=== PATIENT | female | born 1945 | race Caucasian/White ===

== ENCOUNTER 2020-09-26 06:06 | Outpatient (REF) | payer MEDICARE, SELFPAY ==
[2020-09-26 07:20] LABS: Basophils Percent Auto 0.4 % (0-2); Eosinophils Absolute Auto 0.4 X10*3/uL (0.0-0.4); Eosinophils Percent Auto 3.7 % (0-4); Hematocrit 37.8 % (37-47); Hemoglobin 12.2 g/dl (12.0-16.0); Imm Gran Abs Auto 0.03 X10*3/uL (0.00-0.03); Imm Gran Pct Auto 0.3 % (0.0-0.4); Lymphocytes Absolute Auto 3.9 X10*3/uL (1.2-4.9); Lymphocytes Percent Auto 41.4 % (20-40); MANUAL DIFF FLAG NO; Mean Corpuscular HGB Conc 32.3 g/dl (31.0-35.0); Mean Corpuscular Volume 92.9 fL (80-98); Mean Platelet Volume 9.4 fL (9.4-12.3); Monocytes Absolute Auto 0.8 X10*3/uL (0.1-1.2); Monocytes Percent Auto 8.3 % (2-11); Neutrophils Absolute Auto 4.3 X10*3/uL (2.0-8.3); Neutrophils Percent Auto 45.9 % (45-73); Platelet Count 451 X10*3/uL (160-400); Red Blood Count 4.07 X10*6/uL (4.20-5.50); Red Cell Distribution Width 12.9 % (11.0-16.0); White Blood Count 9.4 X10*3/uL (4.8-10.8)
[2020-09-26 07:46] LABS: Alanine Aminotransferase 15 U/L (0-31); Albumin Level 3.9 g/dL (3.5-5.0); Alkaline Phosphatase 82 U/L (39-117); Anion Gap 14 (12-20); Aspartate Amino Transferase 18 U/L (5-31); Bilirubin Total 0.7 mg/dL (0.0-1.0); Blood Urea Nitrogen 12 mg/dL (9-16); Calcium 9.4 mg/dL (8.4-10.2); Carbon Dioxide 27 mmol/L (22-29); Chloride 106 mmol/L (96-108); Cholesterol 234 mg/dL; Estimated Glomerular Filt Rate > 60; Glucose Fasting 119 mg/dL (60-99); HDL Cholesterol 68 mg/dL; LDL Cholesterol Calculated 149 mg/dl; Potassium 4.8 mmol/l (3.3-5.1); Sodium 142 mmol/L (135-145); Triglycerides 86 mg/dL
[2020-09-26 08:09] LABS: Thyroid Stimulating Hormone 1.85 uIU/mL (0.32-4.0)
[2020-09-26 08:50] LABS: Folate 11.4 ng/mL (> or = 4.0); Vitamin B12 697 pg/mL (200-900)
== END 2020-09-26 06:07 | disposition home or self-care (01) ==
LOC: HO.LAB 06:06
PROVIDERS: PCP Internal Medicine; Visit Provider Internal Medicine
DX: E78.00 Pure hypercholesterolemia, unspecified (principal); R73.01 Impaired fasting glucose; E03.9 Hypothyroidism, unspecified; E66.3 Overweight; E53.8 Deficiency of other specified B group vitamins; G62.9 Polyneuropathy, unspecified; K21.9 Gastro-esophageal reflux disease without esophagitis; D64.9 Anemia, unspecified
CPT/HCPCS: 36415; 80053; 80061; 82607; 82746; 84439; 84443; 85025

== ENCOUNTER 2021-04-12 06:06 | Outpatient (REF) | payer MEDICARE, SELFPAY ==
[2021-04-12 06:43] LABS: MANUAL DIFF FLAG NO
[2021-04-12 06:50] LABS: Basophils Absolute Auto 0.1 X10*3/uL (0.0-0.2); Basophils Percent Auto 0.8 % (0-2); Eosinophils Absolute Auto 0.3 X10*3/uL (0.0-0.4); Eosinophils Percent Auto 3.9 % (0-4); Hematocrit 41.3 % (37-47); Hemoglobin 13.7 g/dl (12.0-16.0); Imm Gran Abs Auto 0.02 X10*3/uL (0.00-0.03); Imm Gran Pct Auto 0.3 % (0.0-0.4); Lymphocytes Absolute Auto 2.9 X10*3/uL (1.2-4.9); Lymphocytes Percent Auto 43.1 % (20-40); Mean Corpuscular HGB Conc 33.2 g/dl (31.0-35.0); Mean Corpuscular Hemoglobin 29.6 pg (27.0-33.0); Mean Corpuscular Volume 89.2 fL (80-98); Mean Platelet Volume 9.3 fL (9.4-12.3); Monocytes Absolute Auto 0.5 X10*3/uL (0.1-1.2); Neutrophils Absolute Auto 2.9 X10*3/uL (2.0-8.3); Neutrophils Percent Auto 43.9 % (45-73); Platelet Count 357 X10*3/uL (160-400); Red Blood Count 4.63 X10*6/uL (4.20-5.50); White Blood Count 6.6 X10*3/uL (4.8-10.8)
[2021-04-12 06:51] LABS: Glucose Urine UA NEG (NEG); Leukocyte Esterase Urine NEG (NEG); Nitrite Urine NEG (NEG); PH 5.5 (5.0-8.0); Urine Blood NEG (NEG); Urine Ketones NEG (NEG); Urine Protein NEG (NEG-TRACE)
[2021-04-12 07:20] LABS: Appearance Urine CLEAR; Color Urine YELLOW
[2021-04-12 07:28] LABS: Alanine Aminotransferase 12 U/L (0-31); Alkaline Phosphatase 65 U/L (39-117); Anion Gap 13 (12-20); Aspartate Amino Transferase 17 U/L (5-31); Bilirubin Total 0.8 mg/dL (0.0-1.0); Blood Urea Nitrogen 12 mg/dL (9-16); Calcium 9.3 mg/dL (8.4-10.2); Carbon Dioxide 24 mmol/L (22-29); Chloride 110 mmol/L (96-108); Cholesterol 238 mg/dL; Estimated Glomerular Filt Rate > 60; Glucose Fasting 104 mg/dL (60-99); HDL Cholesterol 61 mg/dL; LDL Cholesterol Calculated 153 mg/dl; Potassium 4.2 mmol/L (3.3-5.1); Sodium 143 mmol/L (135-145); Total Protein 6.9 g/dL (6.5-8.0); Triglycerides 123 mg/dL
[2021-04-12 07:51] LABS: Free T4 (Free Thyroxine) 1.04 ng/dL (0.71-1.85)
[2021-04-12 08:01] LABS: Folate 8.6 ng/mL (> or = 4.0); Vitamin B12 560 pg/mL (200-900)
== END 2021-04-12 06:07 | disposition home or self-care (01) ==
LOC: HO.LAB 06:06
PROVIDERS: Visit Provider Internal Medicine
DX: E03.9 Hypothyroidism, unspecified (principal); E78.00 Pure hypercholesterolemia, unspecified; E53.8 Deficiency of other specified B group vitamins; J44.9 Chronic obstructive pulmonary disease, unspecified; R73.01 Impaired fasting glucose; D64.9 Anemia, unspecified; K21.9 Gastro-esophageal reflux disease without esophagitis; R01.1 Cardiac murmur, unspecified
CPT/HCPCS: 36415; 80053; 80061; 81003; 82607; 82746; 84439; 84443; 85025

== ENCOUNTER 2021-08-28 09:35 | Outpatient (REF) | payer MEDICARE, SELFPAY ==
[2021-08-28 09:57] LABS: MANUAL DIFF FLAG NO
[2021-08-28 10:29] LABS: Basophils Percent Auto 0.5 % (0-2); Eosinophils Absolute Auto 0.4 X10*3/uL (0.0-0.4); Eosinophils Percent Auto 4.9 % (0-4); Hematocrit 38.8 % (37.0-47.0); Hemoglobin 12.7 g/dl (12.0-16.0); Imm Gran Abs Auto 0.02 X10*3/uL (0.00-0.03); Imm Gran Pct Auto 0.2 % (0.0-0.4); Lymphocytes Absolute Auto 2.2 X10*3/uL (1.2-4.9); Lymphocytes Percent Auto 26.1 % (20-40); Mean Corpuscular HGB Conc 32.7 g/dl (31.0-35.0); Mean Corpuscular Hemoglobin 30.7 pg (27.0-33.0); Mean Corpuscular Volume 93.7 fL (80.0-98.0); Mean Platelet Volume 9.4 fL (9.4-12.3); Monocytes Absolute Auto 0.6 X10*3/uL (0.1-1.2); Monocytes Percent Auto 7.7 % (2-11); Neutrophils Absolute Auto 5.1 x10*3/uL (2.0-8.3); Neutrophils Percent Auto 60.6 % (45-73); Platelet Count 380 X10*3/uL (160-400); Red Blood Count 4.14 X10*6/uL (4.20-5.50); Red Cell Distribution Width 14.6 % (11.0-16.0); White Blood Count 8.4 X10*3/uL (4.8-10.8)
[2021-08-28 10:51] LABS: Estimated Average Glucose 117 mg/dL; Hemoglobin A1C 151.3089 umol/L; Hemoglobin A1c % 5.7 %
[2021-08-28 11:11] LABS: Appearance Urine CLEAR; Color Urine YELLOW; Glucose Urine UA NEG (NEG); Leukocyte Esterase Urine NEG (NEG); Nitrite Urine NEG (NEG); PH 5.5 (5.0-8.0); Specific Gravity - Urine 1.015 (1.005-1.025); UACC Culture Trigger NO; Urine Blood TRACE (NEG); Urine Ketones NEG (NEG); Urine Protein NEG (NEG-TRACE)
[2021-08-28 11:18] LABS: Alanine Aminotransferase 26 U/L (0-31); Alkaline Phosphatase 87 U/L (39-117); Anion Gap 14 (12-20); Aspartate Amino Transferase 28 U/L (5-31); Bilirubin Total 0.9 mg/dL (0.0-1.0); Blood Urea Nitrogen 13 mg/dL (9-16); Calcium 9.7 mg/dL (8.4-10.2); Carbon Dioxide 24 mmol/L (22-29); Chloride 109 mmol/L (96-108); Cholesterol 150 mg/dL; Estimated Glomerular Filt Rate > 60; Glucose Fasting 98 mg/dL (60-99); HDL Cholesterol 58 mg/dL; Iron 91 mcg/dL (30-160); LDL Cholesterol Calculated 79 mg/dl; Percent Iron Saturation 21 % (15-50); Potassium 4.3 mmol/L (3.3-5.1); Sodium 143 mmol/L (135-145); Total Iron Binding Capacity 438 mcg/dL (228-428); Triglycerides 68 mg/dL; Unsaturated Iron Binding 347 ug/dL
[2021-08-28 11:25] LABS: RBC Urine 0-2 /HPF (0); Squamous Epithelial Cell Urine TRACE /LPF
[2021-08-28 11:35] LABS: Thyroid Stimulating Hormone 0.44 uIU/mL (0.32-4.0); Vitamin D 25-OH Total 26.5 ng/mL (>30)
[2021-08-28 11:42] LABS: Folate 10.5 ng/mL (> or = 4.0); Vitamin B12 913 pg/mL (200-900)
== END 2021-08-28 09:36 | disposition home or self-care (01) ==
LOC: HO.LAB 09:35
PROVIDERS: PCP Internal Medicine; Visit Provider Internal Medicine
DX: I25.10 Atherosclerotic heart disease of native coronary artery without angina pectoris (principal); I35.0 Nonrheumatic aortic (valve) stenosis; E03.9 Hypothyroidism, unspecified; R73.01 Impaired fasting glucose; E78.00 Pure hypercholesterolemia, unspecified; I10 Essential (primary) hypertension; D50.9 Iron deficiency anemia, unspecified; E53.8 Deficiency of other specified B group vitamins; E55.9 Vitamin D deficiency, unspecified
CPT/HCPCS: 36415; 80053; 80061; 81001; 81003; 82306; 82607; 82746; 83036; 83540; 84439; 84443; 85025; 99202

== ENCOUNTER 2021-10-07 15:41 | Outpatient (REF) | payer MEDICARE, SELFPAY ==
--- NOTE | ~2021-10-07 | XR_ITS ---
EXAMINATION: XR SHOULDER, RIGHT CLINICAL INFORMATION: Pain COMPARISON: None TECHNIQUE: AP external rotation, Grashey, scapular Y, and axillary views of the right shoulder. FINDINGS: Bone alignment is normal. No fracture or dislocation is seen. The glenohumeral joint is normal. There is mild arthritis at the acromioclavicular joint. Soft tissues are unremarkable. XR/XR shoulder RT 1V IMPRESSION: Mild arthritis at the acromioclavicular joint.
== END 2021-10-07 15:42 | disposition home or self-care (01) ==
LOC: HO.XRAY 15:41
PROVIDERS: PCP Internal Medicine; Visit Provider Nurse Practitioner Acute Care
DX: M25.511 Pain in right shoulder (principal)
CPT/HCPCS: 73020

== ENCOUNTER → 2021-10-17 12:17 | Outpatient (BNVA) | payer MEDICARE, OTHER, SELFPAY | PROVIDERS: PCP Internal Medicine; Visit Provider Orthopaedic Surgery | DX: M75.41 Impingement syndrome of right shoulder (principal) | CPT/HCPCS: 20610; 99202; J1100 ==

== ENCOUNTER → 2021-11-04 09:08 | Outpatient (REF) | payer OTHER, SELFPAY ==
--- NOTE | 2021-11-04 09:15 | CA_ITS ---
Transthoracic Echocardiogram Patient (Last, First, Middle): Joana Purdy M Gender: Female Date of : 1945 Age: 76 Procedure Date: 11/04/2021 Procedure Type: Transthoracic Echocardiogram Location: OP Height: 157.48 cm Weight: 65.77 kg BSA: 1.67 m2 Heart Rate: bpm BP: 158 / 82 mmHg Tube Blower: DSRemy Referring MD: Nik Herrera MD Symptoms: I42.9 - Cardiomyopathy, unspecified Study Quality: Good ECG Rhythm: Sinus Conclusions: - The left ventricular systolic function is normal. The calculated ejection fraction is 57% by biplane method. Findings Left Ventricle Normal left ventricular cavity size. There is normal left ventricular wall thickness. The left ventricular systolic function is normal. The calculated ejection fraction is 57% by biplane method. There is no evidence of regional wall motion abnormalities. Right Ventricle Normal right ventricular cavity size and systolic function. Prior Study Comparison No prior study available for comparison. Measurements 2D Linear Measurements LVIDd: 4.14 3.9-5.3/4.2-5.9 cm LVIDd Index: 2.48 2.4-3.2/2.2-3.1 cm/m2 LVIDs: 3.06 2.0-3.6 cm 2D Systolic Function EF 4C: 59.20 >55% EF 2C: 56.40 >55% EF BiP: 56.90 >55% Mitral Valve MV Pk E: 0.84 MV PK A: 0.81 MV Decel Time: 154.00 E/A: 1.00 E'Lateral: 8.70 E'Medial: 4.68 E/E' Med: 17.90 E/E' Lat: 9.60 PHT: 45.00 MVA PHT: 4.89 Decel [place]: 5.42 Diastolic Function MV Pk E: 0.84 MV Pk A: 0.81 E/A: 1.00 E'Medial: 4.68 E/E' Med: 17.90 E' Laterial: 8.70 E/E' Lat: 9.60 Right Ventricle TAPSE (mm): 2.03 TVS' Trell: 14.40 Updated in Other Vendor System with Status of Final Lawrence Milan MD electronically signed on 11/05/2021 9:21:14 AM with status of Final
[2021-11-04 10:21] LABS: Cholesterol 167 mg/dL; HDL Cholesterol 60 mg/dL; LDL Cholesterol Calculated 87 mg/dl; Triglycerides 104 mg/dL
[2021-11-04 10:24] LABS: Color Urine OTHER; Glucose Urine UA NEG (NEG); Leukocyte Esterase Urine TRACE (NEG); Nitrite Urine NEG (NEG); Specific Gravity - Urine <= 1.005 (1.005-1.025); UACC Culture Trigger YES; Urine Blood NEG (NEG); Urine Ketones NEG (NEG); Urine Protein NEG (NEG-TRACE)
[2021-11-04 10:25] LABS: Appearance Urine COLORLESS
[2021-11-04 11:14] LABS: Squamous Epithelial Cell Urine TRACE /LPF
[2021-11-04 11:15] LABS: RBC Urine 0-2 /HPF (0); Renal Epithelial Cells Urine TRACE /LPF; WBC Urine 0-2 /HPF (0-4)
[2021-11-04 11:16] LABS: Bacteria Urine TRACE /LPF
== END ==
LOC: HO.CARD 09:08
PROVIDERS: PCP Internal Medicine; Visit Provider Internal Medicine Cardiovascular Disease
DX: I22.1 Subsequent ST elevation (STEMI) myocardial infarction of inferior wall (principal); I42.9 Cardiomyopathy, unspecified; I25.10 Atherosclerotic heart disease of native coronary artery without angina pectoris; R35.0 Frequency of micturition
CPT/HCPCS: 36415; 80061; 81001; 87086; 93308

== ENCOUNTER → 2021-11-11 14:53 | Outpatient (BNVA) | payer OTHER, SELFPAY | PROVIDERS: PCP Internal Medicine; Referring Provider Internal Medicine; Visit Provider Internal Medicine Cardiovascular Disease | DX: I25.10 Atherosclerotic heart disease of native coronary artery without angina pectoris (principal); I35.0 Nonrheumatic aortic (valve) stenosis | CPT/HCPCS: 99212 ==

== ENCOUNTER 2022-01-06 06:40 | Outpatient (REF) | payer OTHER, SELFPAY ==
[2021-12-06 13:17] VITALS: BP 145/78; BP 158/78
[2021-12-31 09:46] VITALS: BP 112/62; BMI 27.4
[2022-01-06 06:53] LABS: MANUAL DIFF FLAG NO
[2022-01-06 07:31] LABS: Basophils Absolute Auto 0.1 X10*3/uL (0.0-0.2); Basophils Percent Auto 0.8 % (0-2); Eosinophils Absolute Auto 0.3 X10*3/uL (0.0-0.4); Eosinophils Percent Auto 3.5 % (0-4); Hematocrit 39.7 % (37.0-47.0); Hemoglobin 13.1 g/dl (12.0-16.0); Imm Gran Abs Auto 0.01 X10*3/uL (0.00-0.03); Imm Gran Pct Auto 0.1 % (0.0-0.4); Lymphocytes Absolute Auto 2.5 X10*3/uL (1.2-4.9); Lymphocytes Percent Auto 34.1 % (20-40); Mean Corpuscular Hemoglobin 32.1 pg (27.0-33.0); Mean Corpuscular Volume 97.3 fL (80.0-98.0); Mean Platelet Volume 9.2 fL (9.4-12.3); Monocytes Absolute Auto 0.7 X10*3/uL (0.1-1.2); Monocytes Percent Auto 9.6 % (2-11); Neutrophils Absolute Auto 3.8 x10*3/uL (2.0-8.3); Neutrophils Percent Auto 51.9 % (45-73); Platelet Count 338 X10*3/uL (160-400); Red Blood Count 4.08 X10*6/uL (4.20-5.50); Red Cell Distribution Width 13.4 % (11.0-16.0); White Blood Count 7.4 X10*3/uL (4.8-10.8)
[2022-01-06 07:57] LABS: Alanine Aminotransferase 28 U/L (0-31); Albumin Level 4.1 g/dL (3.5-5.0); Alkaline Phosphatase 70 U/L (39-117); Anion Gap 14 (12-20); Aspartate Amino Transferase 26 U/L (5-31); Bilirubin Total 1.5 mg/dL (0.0-1.0); Blood Urea Nitrogen 12 mg/dL (9-16); Calcium 9.9 mg/dL (8.4-10.2); Carbon Dioxide 26 mmol/L (22-29); Chloride 108 mmol/L (96-108); Cholesterol 132 mg/dL; Estimated Glomerular Filt Rate > 60; Glucose Fasting 118 mg/dL (60-99); HDL Cholesterol 55 mg/dL; LDL Cholesterol Calculated 61 mg/dl; Potassium 4.5 mmol/L (3.3-5.1); Sodium 143 mmol/L (135-145); Total Protein 6.8 g/dL (6.5-8.0); Triglycerides 83 mg/dL
[2022-01-06 08:15] LABS: Appearance Urine CLEAR; Color Urine YELLOW; Glucose Urine UA NEG (NEG); Leukocyte Esterase Urine TRACE (NEG); Nitrite Urine NEG (NEG); PH 5.5 (5.0-8.0); UACC Culture Trigger YES; Urine Blood TRACE (NEG); Urine Ketones NEG (NEG); Urine Protein NEG (NEG-TRACE)
[2022-01-06 08:20] LABS: Free T4 (Free Thyroxine) 1.48 ng/dL (0.71-1.85); Thyroid Stimulating Hormone 0.06 uIU/mL (0.32-4.0); Vitamin D 25-OH Total 29.6 ng/mL (>30)
[2022-01-06 08:36] LABS: Bacteria Urine 1+ /LPF; Squamous Epithelial Cell Urine TRACE /LPF
== END 2022-01-06 06:41 | disposition home or self-care (01) ==
LOC: HO.LAB 06:40
PROVIDERS: Absent Provider Internal Medicine Cardiovascular Disease; PCP Internal Medicine; Visit Provider Internal Medicine
DX: Z00.00 Encounter for general adult medical examination without abnormal findings (principal); E78.00 Pure hypercholesterolemia, unspecified; E03.9 Hypothyroidism, unspecified; E55.9 Vitamin D deficiency, unspecified
CPT/HCPCS: 36415; 80053; 80061; 81001; 81003; 82306; 84439; 84443; 85025; 87086

== ENCOUNTER 2022-01-09 08:00 | Outpatient (RCR) | payer OTHER, SELFPAY ==
[2021-12-06 13:17] VITALS: BP 145/78; BP 146/78; BP 158/78
--- NOTE | 2022-02-10 10:11 | MHC.PT.DC ---
[facility] [place] Office [place] Office [place] Office [address] Cole Keating [address] [facility] [phone] F: [phone] F: [phone] F: [phone] F: [phone] Physical Therapy Discharge Report Diagnosis: RIGHT SHOULDER IMPINGEMENT (KP) Date of Surgery: Date of Evaluation: 12/31/21 Date of Discharge: 01/17/22 Treatments to Date: 4 Cancellations to Date: No Shows to Date: Discharge Status: Patient Elected to Stop Recommend MD Follow-up Discharge Summary: JUDE REPORTS THAT HER SYMPTOMS HAVE CONTINUED TO WORSEN DESPITE PT TREATMENT. TREATMENT INCLUDED SOFT TISSUE WORK, LIGHT-RESISTENCE THEREX AND A TREIAL OF IONTOPHORESIS. SHE WISHES TO PURSUE MRI AND MD FOLLOW UP. Electronically signed by: JAM METCALF PT, DPT Please sign and return to therapist. Thank you for your referral.
== END 2022-02-10 10:11 | disposition home or self-care (01) ==
LOC: HO.PT 08:00
PROVIDERS: PCP Internal Medicine; Visit Provider Orthopaedic Surgery
DX: M75.41 Impingement syndrome of right shoulder (principal)
CPT/HCPCS: 97033; 97110; 97140; 97161

== ENCOUNTER → 2022-01-30 08:17 | Outpatient (BNVA) | payer OTHER, SELFPAY ==
[2021-12-06 13:17] VITALS: BP 145/78; BP 158/78
[2022-01-28 07:31] VITALS: BP 104/60; BMI 25.1
== END ==
PROVIDERS: PCP Internal Medicine; Visit Provider Orthopaedic Surgery
DX: M75.41 Impingement syndrome of right shoulder (principal)
CPT/HCPCS: 20610; 99212; J1100

== ENCOUNTER 2022-02-18 08:43 | Outpatient (AMB) | payer OTHER, SELFPAY ==
[2021-12-06 13:17] VITALS: BP 145/78; BP 158/78
[2022-01-28 07:31] VITALS: BP 104/60; BMI 25.1
--- NOTE | 2022-02-18 08:57 | A.OFFVIS_ITS ---
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 Required: No Accompanied by: Self / Same As Patient Allergies Penicillins [PENICILLINS] Allergy (Intermediate, Verified 02/26/23 10:24) HIVES codeine [CODEINE] Adverse Reaction (Intermediate, Verified 02/26/23 10:24) CONFUSION Medication List - Last Reconciled 02/18/22 by Jermain Lozano MD aspirin 81 mg PO DAILY atorvastatin 80 mg PO DAILY 90 days ezetimibe (Zetia) 10 mg PO DAILY levothyroxine 75 mcg PO QAM 90 days lidocaine 5% 1 appl topical BID PRN lidocaine 5% 1 patch topical DAILY lisinopril 5 mg PO DAILY 90 days lorazepam 0.5 mg PO BID 30 days PRN metoprolol succinate ER 25 mg PO DAILY 90 days omeprazole 40 mg PO DAILY 90 days ticagrelor (Brilinta) 90 mg PO BID 90 days HPI AWV G0438 HPI Details Patient comes in today for her Annual Medicare Wellness Exam States that she feels okay and currently has no acute issues She denies any headaches or dizziness Denies any chest pains, no shortness of breath No nausea/vomiting, no abdominal pain No change in bowel habits noted Needs her Lisinopril Rx refilled today IPPE/AWV: c/o of Annual Wellness Visit, subsequent visit. Medical / Social History Reviewed Past Medical History Yes . [place] of Care / Care Team list updated Yes . Surgical/Hospitalization History Yes . Current Medications (including OTC and supplements) Yes . Family History Yes . Tobacco Control form Yes . AUDIT-C (Alcohol use) form Yes . Illicit drug use in Social History Yes . Current diagnosis of depression? No Appropriate PHQ2/PHQ9 completed Yes . Data entered by [employer]eller and reviewed by provider Home Safety Throw rugs? No Grab bars? No Raised toilet seats? No Working smoke detectors? Yes Working carbon monoxide detectors? Yes Data entered by [employer] and reviewed by provider Activities of Daily Living (ADLs) Difficulty bathing or showering? No Difficulty dressing? No Difficulty using the toilet? No Difficulty getting in and out of bed? No Difficulty walking? No Receives help from another person with any of the above tasks? No Instrumental Activities of Daily Living (IADLs) Uses the telephone without help Gets to places out of walking distance without help Goes shopping for groceries without help Prepares own meals without help Does own minor home maintenance without help Does own laundry without help Does own housework without help Manages own money without help Currently takes medications? Yes Takes medication without help End-of-Life Planning Discussed advance directive Yes Advance directive on file Discussed wishes expressed in advance directive agreed to following patient's wishes Fall Risk: Fall History Have you had any falls with injury in the past year? No . Have you had two or more falls in the past year? No . Fall Risk Assessment: No falls in the past year . HRA filled out by the patient, reviewed by Provider and scanned. [facility] Medical History Aortic stenosis 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 Benign essential hypertension Overweight (BMI 25.0-29.9) Anxiety Insomnia Peripheral neuropathy Vitamin B12 deficiency Impaired fasting glucose Cardiac murmur Anemia GERD without esophagitis Allergic rhinitis COPD (chronic obstructive pulmonary disease) Acquired hypothyroidism Pure hypercholesterolemia Surgical History S/P coronary artery stent placement (~07/2021) Family History Father Medical history unknown Mother Medical history unknown Social History Housing: House Alcohol intake: never Patient Tobacco Use Status: Current everyday Tobacco user Tobacco use type: Cigarette Cigarette Packs Per Day: 0.10 Cigarettes Per Day: 2 Years Smoked: 50+ e-Cigarette/Vaping Use: Never Used Second Hand Smoke Exposure: Yes service: No Current occupational status: retired Cognitive needs: No Hearing needs: No Vision needs: Yes (Glasses) Questionnaire Medicare Wellness Checkup What [age] What gender do you identify with?: female During the past 4 weeks, how much have you been bothered by emotional problems such as feeling anxious, depressed, irritable, sad or downhearted, and blue?: quite a bit During the past 4 weeks, has your physical & emotional health limited your social activities with family, friends, neighbors, or groups?: slightly During the past 4 weeks, how much bodily pain have you generally had?: severe pain During the past 4 weeks, was someone available to help you if you needed & wanted help?: yes, as much as I wanted During the past 4 weeks, what was the hardest physical activity you could do for at least 2 minutes?: heavy Can you get to places out of walking distance without help? (For eg., can you travel alone on buses, taxis or drive your car?): Yes Can you go shopping for groceries or clothes without someone's help?: Yes Can you prepare your own meals?: Yes Can you do your housework without help?: Yes Because of any health problems, do you need the help of another person with your personal care needs such as eating, bathing, dressing or getting around the house?: No Can you handle your own money without help?: Yes During the past 4 weeks, how would you rate your health in general?: good During the past 4 weeks how have things been going for you?: pretty well Are you having difficulties driving your car?: no Do you always fasten your seat belt when you are in a car?: yes, usually During past 4 weeks, have you been bothered by the following: never: Falling or dizzy when standing up, Sexual problems?, Trouble eating well?, Teeth or denture problems? and Problems using the telephone? and seldom: Tiredness or fatigue? Have you fallen 2 or more times in the past year?: No Are you afraid of falling?: No Are you a smoker?: yes, but I'm not ready to quit During the past 4 weeks, how many drinks of wine, beer, or other alcoholic beverages did you have?: no alcohol at all Do you exercise for about 20 minutes 3 or more times a week?: no, I usually do not exercise this much Have you been given information to help with the following?: no: Hazards in your house that might hurt you? and no: Keeping track of your medications? How often do you have trouble taking medicines the way you have been told to take them?: I always take medicine as prescribed How confident are you that you can control & manage most of your health problems?: very confident What is your race?: White Mini Mental State Exam (MMSE) Orientation What is the (year) (season) (date) (day) (month)?: year, season, date, day and month Where are we (state) (county) (town or city) (hospital) (floor)?: state, county, town or city, hospital/clinic and floor Score Score: 10 Activity of Daily Living Bathing - sponge bath, tub bath or shower: receives no assistance (gets in/out by self, if usual bathing means Dressing - getting clothes from closets & drawers, including inner/outer garments & fasteners.: gets clothes & gets completely dressed without help Toileting - going to the 'toilet room' for urine/bowel elimination & cleaning self/arranging clothes: goes to toilet room, cleans self, arranges clothes without help Transfer: moves in & out of bed and chair without help (may use support object) Continence: controls urination/bowel movements completely by self Feeding: feeds self without help Total Score: 0 Information obtained from: patient Using telephone: independent Traveling: independent Shopping: independent Preparing meals: independent Housework: independent Taking medicine: independent Managing money: independent PHQ-9 Over the last 2 weeks, how often have you been bothered by any of the following problems? 1. Little interest or pleasure in doing things: not at all 2. Feeling down, depressed, or hopeless: not at all 3. Trouble falling or staying asleep, or sleeping too much: not at all 4. Feeling tired or having little energy: not at all 5. Poor appetite or overeating: not at all 6. Feeling bad about yourself - or that you are a failure or have let yourself or your family down: not at all 7. Trouble concentrating on things, such as reading the newspaper or watching television: not at all 8. Moving or speaking so slowly that other people could have noticed. Or the opposite - being so fidgety or restless that you have been moving around a lot more than usual: not at all 9. Thoughts that you would be better off or of hurting yourself in some way: not at all Total score: 0 Depression Screening Interpretation: Negative 22230 - PHQ-9 Billing: Yes Source: Developed by Drs. Durga Mc, Charlie Sarkar and colleagues, with an educational gail from [employer]. Thrive Questionnaire Date Thrive assessed: 02/18/22 I am a: Patient What is your living situation today?: I have a steady place to live Within the past 12 months, did the food you bought not last and you didn't have the money to get more?: Never true Within the past 12 months, did you worry whether your food would run out before you got money to buy more?: Never true Do you have trouble paying for medicines?: No Do you have trouble getting transportation to medical appointments?: No Do you have trouble paying your heating and electricity bill?: No Do you have trouble taking care of your child, family member or friend?: No Do you have trouble with day-to-day activities such as bathing, preparing meals, shopping, managing finances, etc.?: No Are you currently unemployed and looking for a job?: No Are you interested in more education?: No Currently or been in a relationship where the following occur: no concerns reported AUDIT C Alcohol Use Questionnaire (AUDIT-C) 1. How often do you have a drink containing alcohol?: Never 3. How often do you have six or more drinks on one occasion?: Never Total Score: 0 Score Reviewed/Action Taken: Yes KEIRY-7 AMB Questionnaire KEIRY-7 Date KEIRY - 7 assessed: 02/18/22 Feeling nervous, anxious, or on edge: 1 = Several days Not being able to stop or control worryin = Several days Worrying too much about different things: 1 = Several days Trouble relaxin = Several days Being so restless that it is hard to sit still: 1 = Several days Becoming easily annoyed or irritable: 1 = Several days Feeling afraid as if something awful might happen: 1 = Several days Total KEIRY-7 score (0-4 normal; 5-9 mild; 10-14 moderate; 15-21 severe): 7 Source: Developed by Drs. Durga cM, Charlie Sarkar and colleagues, with an educational gail from [employer]. Review of Systems Const Denies chills, Denies fatigue, Denies fever(s) and Denies headache(s) ENT Denies dysphagia, Denies dizziness, Denies otalgia, Denies headache(s), Denies neck pain, Denies odynophagia and Denies sore throat Card Denies chest pain, Denies palpitations and Denies dyspnea Resp Denies cough and Denies dyspnea GI Denies abdominal pain, Denies constipation, Denies dysphagia, Denies heartburn, Denies diarrhea, Denies nausea, Denies odynophagia and Denies vomiting Denies difficulty voiding, Denies nocturia and Denies dysuria Musc Denies neck pain Skin/Breast Denies rash Neuro Denies dizziness and Denies headache(s) Endo Denies fatigue and Denies palpitations Physical Exam Vital Signs: Last Vital Signs Temp 96.7 F L 02/18/22 09:03 Pulse 70 02/18/22 09:03 BP 136/80 02/18/22 09:03 Pulse Ox 98 02/18/22 09:03 Oxygen Delivery Method Room Air 02/18/22 09:03 BMI result Body Mass Index 26.0 IPPE/AWV: Balance Romberg Yes . Tandem walk Yes . Walk and Turn Yes . Rise from sit to stand Yes . Vision Corrective lens No Vision screen pass Hearing Whisper test pass . Urinary incont. no. EKG Not clinically necessary. Const General: no acute distress and alert Orientation/consciousness: patient oriented x3 HEENT Ears: TM's normal bilaterally and EAC's normal Throat: Yes posterior oropharynx normal and Yes tonsils normal (no TP congestion) Neck Neck: Yes no lymphadenopathy and Yes supple Resp Auscultation: clear to auscultation bilaterally, no rales and no wheezes Cardio Rate: regular rate Rhythm: regular rhythm Heart sounds: no murmurs GI Palpation (GI): Soft to palpation and nontender Auscultation: normal bowel sounds Skin General skin exam: no rashes or lesions noted Neuro General: patient oriented x3 Cognition (Neuro): normal cognition Extrem General: Yes no clubbing, cyanosis or edema Psych Mental Status: mental status grossly normal Thought process: Normal thought process present Thought content: Normal thought content present Assessment & Plan Assessment & Plan (1) Medicare annual wellness visit, subsequent: Code(s): Z00.00 - Encounter for general adult medical examination without abnormal findings Plan: HRA form completed, reviewed and discussed with patient; form will be scanned into patient's chart (2) CAD (coronary artery disease): Comment: S/P Inferior STEMI in 07/2021 - had PCI x 2 Code(s): I25.10 - Atherosclerotic heart disease of samish coronary artery without angina pectoris Qualifiers: Coronary Disease-Associated Artery/Lesion type: samish artery [place] vs. transplanted heart: samish heart Associated angina: without angina Qualified Code(s): I25.10 - Atherosclerotic heart disease of samish coronary artery without angina pectoris Plan: Cardiac catheterization done on 07/31/2021 revealed (+) single vessel CAD with 99% stenosis of mid RCA. Successful PCI of the mid RCA with one drug-eluting stent. A proximal RCA dissection was covered with a separate proximal RCA drug- eluting stent. Continue Aspirin 81 mg QD, Metoprolol ER 25 mg QD and Brilinta 90 mg QD Follow up with cardiology as scheduled (3) Pure hypercholesterolemia: Code(s): E78.00 - Pure hypercholesterolemia, unspecified Plan: Reinforced low cholesterol diet Continue Atorvastatin 80 mg QD Will recheck labs in 6 months for follow up (4) Benign essential hypertension: Code(s): I10 - Essential (primary) hypertension Plan: Reinforced low sodium diet - goal is systolic BP of at least 120 mm or less Continue Lisinopril 5 mg QD - Rx refilled (5) Acquired hypothyroidism: Code(s): E03.9 - Hypothyroidism, unspecified Plan: Continue Levothyroxine 75 mcg QD Will recheck her TFTs in 6 months (6) COPD (chronic obstructive pulmonary disease): Code(s): J44.9 - Chronic obstructive pulmonary disease, unspecified Qualifiers: COPD type: unspecified COPD Qualified Code(s): J44.9 - Chronic obstructive pulmonary disease, unspecified Plan: Stable - states that she has not felt the need to use her inhalers at all recently (7) Allergic rhinitis: Code(s): J30.9 - Allergic rhinitis, unspecified Qualifiers: Allergic rhinitis trigger: unspecified Allergic rhinitis seasonality: unspecified Qualified Code(s): J30.9 - Allergic rhinitis, unspecified Plan: Continue OTC antihistamines - can take Loratadine, Fexofenadine or Cetirizine as needed (8) GERD without esophagitis: Comment: EGD done in July [address] Fuentes - GE junction appeared irregular and biopsy done revealed chronic inflammatory changes consistent with GERD Code(s): K21.9 - Gastro-esophageal reflux disease without esophagitis Plan: Dietary restrictions reinforced Continue Omeprazole 40 mg QD (9) Anemia: Code(s): D64.9 - Anemia, unspecified Qualifiers: Anemia type: unspecified type Qualified Code(s): D64.9 - Anemia, unspecified Plan: Corrected - will continue to monitor her CBC regularly (10) Impaired fasting glucose: Code(s): R73.01 - Impaired fasting glucose Plan: Reinforced low calorie/low carb diet and exercise as tolerated (11) Vitamin B12 deficiency: Code(s): E53.8 - Deficiency of other specified B group vitamins Plan: Corrected - will continue to monitor her B12 level Continue Vitamin B12 1000 mcg daily (12) Peripheral neuropathy: Code(s): G62.9 - Polyneuropathy, unspecified Qualifiers: Peripheral neuropathy type: polyneuropathy, unspecified Qualified Code(s): G62.9 - Polyneuropathy, unspecified Plan: Symptoms improved/stable (13) Insomnia: Code(s): G47.00 - Insomnia, unspecified Qualifiers: Insomnia type: unspecified Qualified Code(s): G47.00 - Insomnia, unspe cified Plan: Sleep hygiene reinforced Was tried on Trazodone in the past but states that the Rx did not help; notes that Lorazepam helps when needed (14) Anxiety: Code(s): F41.9 - Anxiety disorder, unspecified Plan: Continue Lorazepam 0.5 mg 1 tablet 1 to 2 times a day as needed - patient states that she mostly takes it at night and as needed (15) Overweight (BMI 25.0-29.9): Code(s): E66.3 - Overweight Plan: Reinforced diet/exercise as tolerated/lose weight Plan Follow up in 6 months Orders: Orders Lipid Panel 6 Months E78.00 - Pure hypercholesterolemia, unspecified Thyroid Stimulating Hormone 6 Months E03.9 - Hypothyroidism, unspecified Free T4 (Free Thyroxine) 6 Months E03.9 - Hypothyroidism, unspecified Comprehensive [place]. Panel Fast 6 Months E78.00 - Pure hypercholesterolemia, unspecified Medications: Refilled lisinopril 5 mg PO DAILY 90 tabs 1RF 90 days Quality Reporting (2019) Depression/Bipolar (159/160/161/177) PHQ-9: Total score: 0 Coding Level of Care Code Medicare Subsequent (G0439) Est Pt Level 4 (69716) Diagnoses Medicare annual wellness visit, subsequent Z00.00 Coronary artery disease involving samish coronary artery of samish heart without angina pectoris I25.10 Coronary Disease-Associated Artery/Lesion type: samish artery [place] vs. transplanted heart: samish heart Associated angina: without angina Pure hypercholesterolemia E78.00 Benign essential hypertension I10 Acquired hypothyroidism E03.9 Chronic obstructive pulmonary disease, unspecified COPD type J44.9 COPD type: unspecified COPD Allergic rhinitis, unspecified seasonality, unspecified trigger J30.9 Allergic rhinitis trigger: unspecified Allergic rhinitis seasonality: unspecified GERD without esophagitis K21.9 Anemia, unspecified type D64.9 Anemia type: unspecified type Impaired fasting glucose R73.01 Vitamin B12 deficiency E53.8 Peripheral polyneuropathy G62.9 Peripheral neuropathy type: polyneuropathy, unspecified Insomnia, unspecified type G47.00 Insomnia type: unspecified Anxiety F41.9 Overweight (BMI 25.0-29.9) E66.3 Additional Codes PHQ-9 - 87080 - PHQ-9 Billing: Yes ([id number])
[2022-02-18 09:03] VITALS: BP 136/80; PULSE 70; TEMP 35.9; O2SAT 98; BMI 26.0
== END 2022-02-18 10:12 | disposition home or self-care (01) ==
LOC: HO.HMGH 08:43
PROVIDERS: PCP Internal Medicine; Visit Provider Internal Medicine
DX: Z00.00 Encounter for general adult medical examination without abnormal findings (principal); J44.9 Chronic obstructive pulmonary disease, unspecified; I25.10 Atherosclerotic heart disease of native coronary artery without angina pectoris; E78.00 Pure hypercholesterolemia, unspecified; I10 Essential (primary) hypertension; E03.9 Hypothyroidism, unspecified; J30.9 Allergic rhinitis, unspecified; K21.9 Gastro-esophageal reflux disease without esophagitis; D64.9 Anemia, unspecified; R73.01 Impaired fasting glucose; E53.8 Deficiency of other specified B group vitamins; G62.9 Polyneuropathy, unspecified
CPT/HCPCS: 99214; G0439

== ENCOUNTER 2022-02-26 18:34 | Outpatient (REF) | payer OTHER, SELFPAY ==
[2021-12-06 13:17] VITALS: BP 145/78; BP 158/78
--- NOTE | ~2022-02-26 | MR_ITS ---
EXAMINATION: MR SHOULDER WITHOUT CONTRAST, RIGHT CLINICAL INFORMATION: Impingement syndrome. COMPARISON: Radiographs 10/07/2021. TECHNIQUE: MRI of the shoulder without contrast was performed on a high-field scanner. FINDINGS: ROTATOR CUFF: The supraspinatus tendon is completely torn and retracted to the level of the glenoid with mild muscle atrophy. Minimal undersurface partial tearing of the distal subscapularis tendon. BICEPS: Normal. CORACOACROMIAL ARCH: The undersurface of the acromion is laterally downsloping with no subacromial spur. Mild acromioclavicular osteoarthritis. LABRUM/CAPSULE: No definite labral tear. GLENOHUMERAL JOINT/MARROW: Small joint effusion. MR/MR shoulder RT wo con IMPRESSION: Completely torn supraspinatus tendon with retraction and mild muscle atrophy. Mild undersurface partial tearing of the distal subscapularis tendon. Mild acromioclavicular osteoarthritis. Laterally downsloping acromion. Small joint effusion.
[2022-02-26 09:03] VITALS: BP 112/68; BMI 25.7
== END 2022-02-26 18:35 | disposition home or self-care (01) ==
LOC: HO.MRI 18:34
PROVIDERS: Visit Provider Orthopaedic Surgery
DX: M75.41 Impingement syndrome of right shoulder (principal)
CPT/HCPCS: 73221

== ENCOUNTER → 2022-03-03 09:16 | Outpatient (BNVA) | payer OTHER, SELFPAY ==
[2021-12-06 13:17] VITALS: BP 145/78; BP 158/78
[2022-02-26 09:03] VITALS: BP 112/68; BMI 25.7
== END ==
PROVIDERS: PCP Internal Medicine; Visit Provider Orthopaedic Surgery
DX: M75.101 Unspecified rotator cuff tear or rupture of right shoulder, not specified as traumatic (principal)
CPT/HCPCS: 99212

== ENCOUNTER → 2022-06-04 14:59 | Outpatient (BNVA) | payer OTHER, SELFPAY ==
[2022-03-03 14:26] VITALS: BP 106/60; BP 112/62
[2022-05-27 08:19] VITALS: BP 132/76; BMI 24.7
== END ==
PROVIDERS: PCP Internal Medicine; Referring Provider Internal Medicine; Visit Provider Internal Medicine Cardiovascular Disease
DX: I25.10 Atherosclerotic heart disease of native coronary artery without angina pectoris (principal); I35.0 Nonrheumatic aortic (valve) stenosis
CPT/HCPCS: 99212

== ENCOUNTER → 2022-07-03 07:17 | Outpatient (REF) | payer OTHER, SELFPAY ==
[2022-03-03 14:26] VITALS: BP 106/60; BP 112/62
[2022-06-18 07:37] VITALS: BP 136/80; BMI 24.5
--- NOTE | 2022-07-03 07:19 | CA_ITS ---
Transthoracic Echocardiogram Patient (Last, First, Middle): Joana Purdy M Gender: Female Date of : 1945 Age: 76 Procedure Date: 07/03/2022 Procedure Type: Transthoracic Echocardiogram Location: OP Height: 157.48 cm Weight: 62.6 kg BSA: 1.63 m2 Heart Rate: 66 bpm BP: 120 / 78 mmHg Spoon Maker: TO Referring MD: Nik Herrera MD Online Producer: Nik Herrera MD Symptoms: I35.0 - Nonrheumatic aortic (valve) stenosis Study Quality: Fair ECG Rhythm: Sinus Conclusions: - 1. Normal LV systolic function with impaired relaxation filling pattern next 2. [id number] aortic stenosis 3. Normal RV systolic pressure 4. No gross pericardial effusion Findings Left Ventricle Normal left ventricular size, thickness, and systolic function. The visually estimated ejection fraction is between 55-60%. Spectral Doppler is indicative of an impaired relaxation filling pattern. E/E prime ratio is between 8 and 15 consistent with indeterminate filling pressures. Right Ventricle Normal right ventricular cavity size and systolic function. Atria The left atrium is likely dilated. Interatrial shunt cannot be excluded. The right atrium is normal in size. Aortic Valve There is mild calcification of the aortic valve. There is mild thickening of the aortic valve. There is mild to moderate aortic valve stenosis. The peak aortic gradient is 32 mmHg.The mean gradient is 16 mmHg. There is no aortic valve regurgitation. Mitral Valve There is mild anterior and posterior mitral leaflet thickening. There is mild mitral annular calcification. There is trace mitral valve regurgitation. There is no mitral valve stenosis. Pulmonic Valve The pulmonic valve was not well visualized. Tricuspid Valve Likely normal tricuspid valve structure and function. There is mild tricuspid valve regurgitation. The right ventricular systolic pressure is normal. The right ventricular systolic pressure is 28 mmHg. Normal right atrial pressure. There is no evidence of pulmonary hypertension. Great Vessels All visible segments of the aorta are normal in size. The pulmonary artery was not well visualized. Venous The inferior vena cava is normal in size and collapses greater than 50% with inspiration. Pericardium/Pleural There is no evidence of pericardial effusion. Prior Study Comparison Changes noted compared to prior study dated: 11/04/2021. Vyqk-ew-[id number] aortic stenosis is present Measurements 2D Linear Measurements IVSd: 0.90 0.6-0.9/0.6-1.0 cm LVIDd: 4.43 3.9-5.3/4.2-5.9 cm LVIDd Index: 2.72 2.4-3.2/2.2-3.1 cm/m2 LVIDs: 2.57 2.0-3.6 cm LVPWd: 0.91 0.7-1.1 cm LA Diam: 3.00 2.7-3.8/3.0-4.0 cm LAIDs Index: 1.84 1.5-2.3 cm/m2 LV Mass: 162.52 67-162/88-224 g LV Mass Index: 99.70 43-95/49-115 g/m2 LVOT Diam: 1.90 3.0+(-)1.3 cm 2D Systolic Function EF 4C: 57.80 >55% EF 2C: 57.40 >55% EF BiP: 58.00 >55% Mitral Valve MV Pk E: 0.77 MV PK A: 0.76 MV Decel Time: 168.00 E/A: 1.00 E'Lateral: 8.59 E'Medial: 5.44 E/E' Med: 14.20 E/E' Lat: 9.00 PHT: 49.00 MVA PHT: 4.49 Decel [place]: 4.58 Aortic Valve AoV Pk Trell: 2.84 AoV Mn Trell: 1.86 AoV VTI: 0.65 AoV Pk Grad: 32.00 Aov Mn Grad: 16.00 MATILDE Cont.VTI: 0.88 LVOT LVOT Pk Trell: 0.94 LVOT Mn Trell: 0.54 LVOT VTI: 0.20 LVOT Pk Grad: 4.00 LVOT Mn Grad: 1.00 LVOT Diam: 1.90 LVOT Area: 2.84 Diastolic Function MV Pk E: 0.77 MV Pk A: 0.76 E/A: 1.00 E'Medial: 5.44 E/E' Med: 14.20 E' Laterial: 8.59 E/E' Lat: 9.00 Right Ventricle TAPSE (mm): 28.60 TVS' Trell: 12.00 Tricuspid Valve TR Pk Trell: 2.50 TR Pk Grad: 25.00 RA Press: 3.00 RVSP: 28.00 Great Vessels Aorta Sinus of Valsalva: 3.00 2.0-3.[address] [place]: 2.06 1.7-3.4 cm Ao Asc: 2.90 2.1-3.4 cm Updated in Other Vendor System with Status of Final Nik Herrera MD electronically signed on 07/04/2022 1:04:49 PM with status of Final
== END ==
LOC: HO.CARD 07:17
PROVIDERS: Visit Provider Nurse Practitioner Family
DX: I35.0 Nonrheumatic aortic (valve) stenosis (principal)
CPT/HCPCS: 93306

== ENCOUNTER 2022-07-14 13:41 | Emergency (ER) | payer OTHER, SELFPAY ==
[2022-03-03 14:26] VITALS: BP 106/60; BP 112/62
[2022-06-18 07:37] VITALS: BP 136/80; BMI 24.5
--- NOTE | ~2022-07-14 | XR_ITS ---
EXAMINATION: XR CHEST CLINICAL INFORMATION: 76-year-old female with cough and congestion COMPARISON: 09/05/2017 TECHNIQUE: 2 views of the chest were obtained. FINDINGS: No significant abnormality is noted involving the heart, lungs, mediastinum, bony thorax or soft tissues. XR/XR chest 2V IMPRESSION: Unremarkable examination.
[2022-07-14 13:43] VITALS: BP 175/75; PULSE 88; RESP 28; TEMP 37; O2SAT 94; BMI 24.7
[2022-07-14 13:56] LABS: MANUAL DIFF FLAG NO
[2022-07-14 14:01] LABS: Basophils Absolute Auto 0.1 X10*3/uL (0.0-0.2); Basophils Percent Auto 0.8 % (0-2); Eosinophils Absolute Auto 0.2 X10*3/uL (0.0-0.4); Eosinophils Percent Auto 2.2 % (0-4); Hematocrit 39.5 % (37.0-47.0); Hemoglobin 13.2 g/dl (12.0-16.0); Imm Gran Abs Auto 0.02 X10*3/uL (0.00-0.03); Imm Gran Pct Auto 0.3 % (0.0-0.4); Lymphocytes Percent Auto 27.1 % (20-40); Mean Corpuscular HGB Conc 33.4 g/dl (31.0-35.0); Mean Corpuscular Hemoglobin 31.1 pg (27.0-33.0); Mean Corpuscular Volume 92.9 fL (80.0-98.0); Mean Platelet Volume 9.2 fL (9.4-12.3); Monocytes Absolute Auto 0.6 X10*3/uL (0.1-1.2); Monocytes Percent Auto 8.2 % (2-11); Neutrophils Absolute Auto 4.5 x10*3/uL (2.0-8.3); Neutrophils Percent Auto 61.4 % (45-73); Platelet Count 342 X10*3/uL (160-400); Red Blood Count 4.25 X10*6/uL (4.20-5.50); Red Cell Distribution Width 13.8 % (11.0-16.0); White Blood Count 7.3 X10*3/uL (4.8-10.8)
[2022-07-14 14:17] LABS: COVID-19 Test Negative (Negative); IDNOW Serial# 16C4AD1C; Influenza A Negative (Negative); Influenza B2 Negative (Negative)
[2022-07-14 14:18] LABS: Anion Gap 16 (12-20); Blood Urea Nitrogen 7 mg/dL (9-16); Calcium 9.7 mg/dL (8.4-10.2); Carbon Dioxide 26 mmol/L (22-29); Chloride 106 mmol/L (96-108); Creatinine Clr Calc Pharmacy 50.6; Estimated Glomerular Filt Rate > 60; Glucose Random 93 mg/dL (60-115); Potassium 4.2 mmol/L (3.3-5.1); Sodium 144 mmol/L (135-145)
[2022-07-14 17:16] VITALS: BP 148/70; PULSE 87; RESP 20; TEMP 37.1; O2SAT 95
--- NOTE | 2022-07-14 19:08 | ECG_ITS ---
Test Reason : DYSPNEA Blood Pressure : / mmHG Vent. Rate : 082 BPM Atrial Rate : 082 BPM P-R Int : 156 ms QRS Dur : 082 ms QT Int : 378 ms P-R-T Axes : 076 -02 052 degrees QTc Int : 441 ms Normal sinus rhythm RSR' or QR pattern in V1 suggests right ventricular conduction delay Left axis deviation Borderline ECG When compared with ECG of 07-OCT-2014 05:21, No significant change was found Referred By: Toby Oscar Electronically Signed By:TRACY NEWMAN MD
[2022-07-14] MEDS: Albuterol/Iprat 2.5/0.5MG 3 ML AMPUL.NEB INHALE (19:39)
[2022-07-14 19:40] VITALS: PULSE 87; RESP 20; O2SAT 95
[2022-07-14] MEDS: predniSONE 20 MG TABLET 60 MG PO (19:53)
[2022-07-14 20:04] LABS: Prothrombin Time 11.6 SEC (10.0-13.1)
[2022-07-14 20:06] LABS: D Dimer High Sensitivity 164 NG/ML; Partial Thromboplastin Time 34.7 SEC (26.0-36.4)
[2022-07-14 20:11] VITALS: BP 128/58; PULSE 95; RESP 18; TEMP 36.7; O2SAT 95
[2022-07-14 20:14] LABS: B Type Natriuretic Peptide 91 pg/mL (<100); Troponin-I High Sensitivity 4.6 ng/L (<3.5-17.0)
--- NOTE | 2022-07-14 20:17 | PC.NURSE ---
Pt reports feeling tachycardia. Pt previously medicated with a duoneb breathing treatment and prednisone po. VSS. Pt advised tachycardia is an expected finding after steroid administration. EKG was normal. Troponin lab is still pending. Breathing is even and unlabored. 2 sat 95% RA. HR 90's. Pt reports experiencing sx of a sinus infection, facial pain, and back pain. MLP notified.
--- NOTE | 2022-07-14 20:29 | ED.GENADULT ---
HPI - General Adult General Chief complaint: Dyspnea Stated complaint: can't breathe Time Seen by Provider: 07/14/22 19:06 Source: patient Mode of arrival: ambulatory Limitations: no limitations History of Present Illness HPI narrative: 76-year-old female history of heart attack in the past presents to ED for coughing, shortness of breath, cough with green phlegm, body aches, chills, and headache for the past 4-5 days. Patient denies any leg swelling, calf pain, or coughing up blood. Patient states no one else at home sick Related Data Home Medications Medication Instructions Recorded Confirmed aspirin 81 mg tablet,delayed 81 mg PO DAILY 08/28/21 06/04/22 release Previous Rx's Medication Instructions Recorded lidocaine 5 % topical cream 1 appl topical BID PRN pain #15 10/07/21 grams lidocaine 5 % topical patch 1 patch topical DAILY #15 ea 10/07/21 ezetimibe 10 mg tablet (Zetia) 10 mg PO DAILY #90 tabs 11/04/21 atorvastatin 80 mg tablet 80 mg PO DAILY 90 days #90 tabs 01/01/22 metoprolol succinate 25 mg 25 mg PO DAILY 90 days #90 tabs 01/01/22 tablet,extended release 24 hr ticagrelor 90 mg tablet (Brilinta) 90 mg PO BID 90 days #180 tabs 01/15/22 lisinopril 5 mg tablet 5 mg PO DAILY 90 days #90 tabs 02/18/22 levothyroxine 75 mcg tablet 75 mcg PO QAM 90 days #90 tabs 04/17/22 lorazepam 0.5 mg tablet 0.5 mg PO BID PRN anxiety 30 days 05/26/22 #60 tabs omeprazole 40 mg capsule,delayed 40 mg PO DAILY 90 days #90 caps 05/26/22 release albuterol sulfate 90 mcg/actuation 2 puff inhalation Q4-6H PRN 07/14/22 aerosol inhaler shortness of breath or wheezing #8.5 grams azithromycin 250 mg tablet See Rx Instructions PO .COMPLEX #6 07/14/22 tabs prednisone 20 mg tablet 40 mg PO DAILY 5 days #10 tabs 07/14/22 Allergies Allergy/AdvReac Type Severity Reaction Status Date / Time Penicillins [PENICILLINS] Allergy Intermediate HIVES Verified 02/18/22 09:55 codeine [CODEINE] AdvReac Intermediate CONFUSION Verified 02/18/22 09:55 Review of Systems Review of Systems: Coughing, headache, coughing green phlegm, shortness of breath, chills PMFSH Past Medical History Medical History (Updated 07/14/22 @ 20:35 by SHOLA Heath) Acquired hypothyroidism Allergic rhinitis Anemia Anxiety Aortic stenosis Benign essential hypertension Cardiac murmur COPD (chronic obstructive pulmonary disease) GERD without esophagitis Impaired fasting glucose Insomnia Overweight (BMI 25.0-29.9) Peripheral neuropathy Pure hypercholesterolemia 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 Vitamin B12 deficiency Surgical History S/P coronary artery stent placement (~07/2021) Family History Family History Father Medical history unknown Mother Medical history unknown Social History Social History Housing: House Alcohol intake: never Patient Tobacco Use Status: Current everyday Tobacco user Tobacco use type: Cigarette Cigarette Packs Per Day: 0.10 Cigarettes Per Day: 2 Years Smoked: 50+ e-Cigarette/Vaping Use: Never Used Second Hand Smoke Exposure: Yes Advance Directives: No Advance Directives Information Provided: No service: No Current occupational status: retired Cognitive needs: No Hearing needs: No Vision needs: Yes (Glasses) Physical Exam ED Vital Signs: Vital Signs - 24 hr 07/14/22 13:43 07/14/22 17:16 07/14/22 19:40 Temperature 98.6 F 98.8 F Pulse Rate 88 87 87 Respiratory Rate 28 H 20 20 Blood Pressure 175/75 H 148/70 H Pulse Oximetry 94 95 Oxygen Delivery Method Room Air Room Air 07/14/22 20:11 Temperature 98.1 F Pulse Rate 95 Respiratory Rate 18 Blood Pressure 128/58 L Pulse Oximetry 95 Oxygen Delivery Method Room Air BMI result Body Mass Index 24.7 Const General: cooperative, healthy appearing, comfortable, no acute distress, well developed, alert, awake and Physically active Orientation/consciousness: oriented to time and patient oriented x3 HENMT Head: Yes normal to inspection, Yes No palpable skull fracture present, Yes normocephalic, Yes atraumatic and No abrasion Eyes General: appearance normal, both eyes and all related structures Neck Neck: Yes normal visual inspection, Yes full ROM, Yes no lymphadenopathy, Yes no meningeal signs, Yes trachea midline, Yes supple, No anterior neck swelling and No tender Chest Chest palpation & inspection: normal inspection of the chest and normal palpation of entire chest wall Resp Effort & Inspection: normal respiratory effort and able to speak in complete sentences Auscultation: wheezes expiratory wheezes and throughout Cardio Jugular venous distension: no JVD Heart sounds: S1 normal heart sound present and S2 normal heart sound present GI Inspection: Yes normal to inspection and No abdominal wall ecchymosis Palpation (GI): Soft to palpation, not firm, nontender, no guarding and not rigid General: No CVA tenderness and Yes no CVA tenderness Back/Spine/Pelvis Back: no CVA tenderness, No CVA tenderness and No back tenderness Skin General skin exam: no rashes or lesions noted and elasticity normal Neuro General: oriented to time, patient oriented x3, gait normal, no meningeal signs and CN's II-XI intact bilaterally Cranial nerves: Yes CN's II-XII intact bilaterally Extrem Other: Lower extremities negative for swelling, pitting edema, calf tenderness General: Yes normal to inspection and Yes full ROM Psych Appearance: grossly normal, well kempt and not disheveled Course Course Course Narrative: Denies any history of asthma. Has wheezing in lungs most likely bronchitis. Patient ready had labs drawn but no EKG or cardiac markers. Will also add D-dimer due to slight pleurisy. Reevaluation(s) Reevaluation #1: EKG negative STEMI. Troponin after having shortness of breath for the past 4 days negative. BNP negative for CHF. Chest x-ray negative for CHF or pneumonia. D-dimer 164 which is negative. Age adjusted negative. Well's score 0. Patient given albuterol and steroid. Patient will be discharged with albuterol inhaler, steroid, and antibiotics Time: 20:33 Medical Decision Making [facility] Narrative Medical decision making narrative: Bronchitis Lab Data Result diagrams: 07/14/22 13:52 07/14/22 13:52 Labs: Lab Results 07/14/22 07/14/22 07/14/22 Range/Units 13:52 13:52 13:52 WBC 7.3 (4.8-10.8) X10*3/uL RBC 4.25 (4.20-5.50) X10*6/uL Hgb 13.2 (12.0-16.0) g/dl Hct 39.5 (37.0-47.0) % MCV 92.9 (80.0-98.0) fL MCH 31.1 (27.0-33.0) pg MCHC 33.4 (31.0-35.0) g/dl RDW 13.8 (11.0-16.0) % Plt Count 342 (160-400) X10*3/uL MPV 9.2 L (9.4-12.3) fL Immature Gran % (Auto) 0.3 (0.0-0.4) % Neut % (Auto) 61.4 (45-73) % Lymph % (Auto) 27.1 (20-40) % [place] % (Auto) 8.2 (2-11) % Eos % (Auto) 2.2 (0-4) % Baso % (Auto) 0.8 (0-2) % Lymph # (Auto) 2.0 (1.2-4.9) X10*3/uL [place] # (Auto) 0.6 (0.1-1.2) X10*3/uL Eos # (Auto) 0.2 (0.0-0.4) X10*3/uL Baso # (Auto) 0.1 (0.0-0.2) X10*3/uL Abs Immat Gran (auto) 0.02 (0.00-0.03) X10*3/uL Absolute Neuts (auto) 4.5 (2.0-8.3) x10*3/uL Absolute Nucleated RBC 0.000 (0.0-0.012) X10*3/uL Nucleated RBC % (auto) 0.0 (0.0-0.2) /100WBC PT (10.0-13.1) SEC INR (0.9-1.1) APTT (26.0-36.4) SEC D-Dimer High Sensitivty NG/ML Sodium 144 (135-145) mmol/L Potassium 4.2 (3.3-5.1) mmol/L Chloride 106 (96-108) mmol/L Carbon Dioxide 26 (22-29) mmol/L Anion Gap 16 (12-20) BUN 7 L (9-16) mg/dL Creatinine 0.84 (0.5-1.4) mg/dL Estim Creat Clear Calc 50.6 Estimated GFR > 60 Random Glucose 93 (60-115) mg/dL Calcium 9.7 (8.4-10.2) mg/dL Troponin I High Sens (<3.5-17.0) ng/L B-Natriuretic Peptide (<100) pg/mL COVID-19 (NAZANIN) (Negative) COVID-19 Clin Com Influenza Type A (KG) Negative (Negative) Influenza Type B (KG) Negative (Negative) Influenza A & B Note See Note 07/14/22 07/14/22 07/14/22 Range/Units 13:52 19:44 19:44 WBC (4.8-10.8) X10*3/uL RBC (4.20-5.50) X10*6/uL Hgb (12.0-16.0) g/dl Hct (37.0-47.0) % MCV (80.0-98.0) fL MCH (27.0-33.0) pg MCHC (31.0-35.0) g/dl RDW (11.0-16.0) % Plt Count (160-400) X10*3/uL MPV (9.4-12.3) fL Immature Gran % (Auto) (0.0-0.4) % Neut % (Auto) (45-73) % Lymph % (Auto) (20-40) % [place] % (Auto) (2-11) % Eos % (Auto) (0-4) % Baso % (Auto) (0-2) % Lymph # (Auto) (1.2-4.9) X10*3/uL [place] # (Auto) (0.1-1.2) X10*3/uL Eos # (Auto) (0.0-0.4) X10*3/uL Baso # (Auto) (0.0-0.2) X10*3/uL Abs Immat Gran (auto) (0.00-0.03) X10*3/uL Absolute Neuts (auto) (2.0-8.3) x10*3/uL Absolute Nucleated RBC (0.0-0.012) X10*3/uL Nucleated RBC % (auto) (0.0-0.2) /100WBC PT 11.6 (10.0-13.1) SEC INR 1.0 (0.9-1.1) APTT 34.7 (26.0-36.4) SEC D-Dimer High Sensitivty 164 NG/ML Sodium (135-145) mmol/L Potassium (3.3-5.1) mmol/L Chloride (96-108) mmol/L Carbon Dioxide (22-29) mmol/L Anion Gap (12-20) BUN (9-16) mg/dL Creatinine (0.5-1.4) mg/dL Estim Creat Clear Calc Estimated GFR Random Glucose (60-115) mg/dL Calcium (8.4-10.2) mg/dL Troponin I High Sens (<3.5-17.0) ng/L B-Natriuretic Peptide 91 (<100) pg/mL COVID-19 (NAZANIN) Negative (Negative) COVID-19 Clin Com See Note Influenza Type A (KG) (Negative) Influenza Type B (KG) (Negative) Influenza A & B Note 07/14/22 Range/Units 19:44 WBC (4.8-10.8) X10*3/uL RBC (4.20-5.50) X10*6/uL Hgb (12.0-16.0) g/dl Hct (37.0-47.0) % MCV (80.0-98.0) fL MCH (27.0-33.0) pg MCHC (31.0-35.0) g/dl RDW (11.0-16.0) % Plt Count (160-400) X10*3/uL MPV (9.4-12.3) fL Immature Gran % (Auto) (0.0-0.4) % Neut % (Auto) (45-73) % Lymph % (Auto) (20-40) % [place] % (Auto) (2-11) % Eos % (Auto) (0-4) % Baso % (Auto) (0-2) % Lymph # (Auto) (1.2-4.9) X10*3/uL [place] # (Auto) (0.1-1.2) X10*3/uL Eos # (Auto) (0.0-0.4) X10*3/uL Baso # (Auto) (0.0-0.2) X10*3/uL Abs Immat Gran (auto) (0.00-0.03) X10*3/uL Absolute Neuts (auto) (2.0-8.3) x10*3/uL Absolute Nucleated RBC (0.0-0.012) X10*3/uL Nucleated RBC % (auto) (0.0-0.2) /100WBC PT (10.0-13.1) SEC INR (0.9-1.1) APTT (26.0-36.4) SEC D-Dimer High Sensitivty NG/ML Sodium (135-145) mmol/L Potassium (3.3-5.1) mmol/L Chloride (96-108) mmol/L Carbon Dioxide (22-29) mmol/L Anion Gap (12-20) BUN (9-16) mg/dL Creatinine (0.5-1.4) mg/dL Estim Creat Clear Calc Estimated GFR Random Glucose (60-115) mg/dL Calcium (8.4-10.2) mg/dL Troponin I High Sens 4.6 (<3.5-17.0) ng/L B-Natriuretic Peptide (<100) pg/mL COVID-19 (NAZANIN) (Negative) COVID-19 Clin Com Influenza Type A (KG) (Negative) Influenza Type B (KG) (Negative) Influenza A & B Note ECG Data Interpretation: Normal sinus rhythm. Ventricular rate 82. Pr interval 156. QRS 86 pr QTC 441 Discharge Plan Discharge Clinical Impression: Bronchitis Patient Disposition: Home, Self-Care Instructions: Acute Bronchitis (ED) Additional Instructions: Hear history physical exam indicate bronchitis. EKG and blood work came back negative for heart attack, heart failure, pneumonia, risk of pulmonary embolus. Return to the ED immediately for any chest pain, shortness of breath, leg swelling, calf pain, coughing up blood, profound chest in inspiration, or any other concerning symptoms. Prescriptions: New albuterol sulfate 90 mcg/actuation HFA aerosol inhaler 2 puff inhalation Q4-6H PRN (Reason: shortness of breath or wheezing) Qty: 8.5 0RF prednisone 20 mg tablet 40 mg PO DAILY 5 Days Qty: 10 0RF azithromycin 250 mg tablet See Rx Instructions .ROUTE .COMPLEX Qty: 6 0RF Rx Instructions: For 250 mg dose pack: take 500 mg today (day 1), then 250 mg for 4 days (days 2-5) No Action ezetimibe [Zetia] 10 mg tablet 10 mg PO DAILY Qty: 90 3RF atorvastatin 80 mg tablet 80 mg PO DAILY 90 Days Qty: 90 3RF metoprolol succinate 25 mg tablet extended release 24 hr 25 mg PO DAILY 90 Days Qty: 90 3RF Rx Instructions: Please note quantity and refill amount Brilinta 90 mg tablet 90 mg PO BID 90 Days Qty: 180 2RF levothyroxine 75 mcg tablet 75 mcg PO QAM 90 Days Qty: 90 1RF lorazepam 0.5 mg tablet 0.5 mg PO BID PRN (Reason: anxiety) 30 Days Qty: 60 0RF omeprazole 40 mg capsule,delayed release(DR/EC) 40 mg PO DAILY 90 Days Qty: 90 1RF aspirin 81 mg tablet,delayed release (DR/EC) 81 mg PO DAILY lisinopril 5 mg tablet 5 mg PO DAILY 90 Days Qty: 90 1RF lidocaine 5 % cream 1 appl topical BID PRN (Reason: pain) Qty: 15 0RF lidocaine 5 % adhesive patch,medicated 1 patch topical DAILY Qty: 15 0RF Rx Instructions: leave on most painful area for up to 12 hrs Referrals: Jermain Lozano MD [Primary Care Provider] - (Bronchitis) Interventions: ED Discharge Assessment Last Done: 07/14/22 20:51 Discharge Date/Time: 07/14/22 20:52 Print Language: Beninese
[2022-07-14] MEDS: Acetaminophen 325 MG TABLET 975 MG PO (20:48)
--- NOTE | 2022-07-14 20:51 | PC.NURSE ---
Discharge instructions provided to pt. Pt verbalizes understanding.
== END 2022-07-14 20:52 | disposition home or self-care (01) ==
PROVIDERS: Emergency Medicine; Physician Assistant; Emergency Provider Emergency Medicine; PCP Internal Medicine
DX: J40 Bronchitis, not specified as acute or chronic (principal); Z20.822 Contact with and (suspected) exposure to COVID-19; R06.02 Shortness of breath; I10 Essential (primary) hypertension; E78.00 Pure hypercholesterolemia, unspecified; Z79.899 Other long term (current) drug therapy; F17.210 Nicotine dependence, cigarettes, uncomplicated; Z79.02 Long term (current) use of antithrombotics/antiplatelets
CPT/HCPCS: 36415; 71046; 80048; 83880; 84484; 85025; 85379; 85610; 85730; 87502; 87635; 93005; 99284

== ENCOUNTER 2022-08-15 06:29 | Outpatient (REF) | payer OTHER, SELFPAY ==
[2022-03-03 14:26] VITALS: BP 106/60; BP 112/62
[2022-06-18 07:37] VITALS: BMI 24.5
[2022-08-15 06:29] VITALS: BP 136/82
[2022-08-15 07:25] LABS: Appearance Urine Clear; Color Urine Yellow; Glucose Urine UA Negative (Negative); Leukocyte Esterase Urine Large (3+) (Negative); Nitrite Urine Negative (Negative); UMIC TRIGGER UACC YES; Urine Blood Small (1+) (Negative); Urine Ketones Negative (Negative); Urine Protein Negative (Neg-Trace)
[2022-08-15 07:33] LABS: Bacteria Urine None Seen (None Seen); Hyaline Casts Urine 0-2 /LPF (0-2); UACC Culture Trigger YES; WBC Urine 21-50 /HPF (0-5)
[2022-08-15 08:10] LABS: Alanine Aminotransferase 16 U/L (0-31); Albumin Level 4.1 g/dL (3.5-5.0); Alkaline Phosphatase 72 U/L (39-117); Anion Gap 13 (12-20); Aspartate Amino Transferase 19 U/L (5-31); Bilirubin Total 1.2 mg/dL (0.0-1.0); Blood Urea Nitrogen 15 mg/dL (9-16); Carbon Dioxide 28 mmol/L (22-29); Chloride 106 mmol/L (96-108); Cholesterol 140 mg/dL; Estimated Glomerular Filt Rate > 60; Glucose Fasting 119 mg/dL (60-99); HDL Cholesterol 61 mg/dL; LDL Cholesterol Calculated 64 mg/dl; Potassium 4.6 mmol/L (3.3-5.1); Sodium 142 mmol/L (135-145); Triglycerides 78 mg/dL
[2022-08-15 08:35] LABS: Free T4 (Free Thyroxine) 1.29 ng/dL (0.71-1.85); Thyroid Stimulating Hormone 0.07 uIU/mL (0.32-4.0)
== END 2022-08-15 06:30 | disposition home or self-care (01) ==
LOC: HO.LAB 06:29
PROVIDERS: PCP Internal Medicine; Visit Provider Internal Medicine
DX: E78.00 Pure hypercholesterolemia, unspecified (principal); E03.9 Hypothyroidism, unspecified
CPT/HCPCS: 36415; 80053; 80061; 81001; 84439; 84443; 87086

== ENCOUNTER 2022-12-05 05:57 | Outpatient (REF) | payer OTHER, SELFPAY ==
[2022-06-18 07:37] VITALS: BMI 24.5
[2022-08-26 10:44] VITALS: BP 128/66; BP 142/72
[2022-12-05 06:12] LABS: MANUAL DIFF FLAG NO
[2022-12-05 07:10] LABS: Basophils Absolute Auto 0.1 X10*3/uL (0.0-0.2); Eosinophils Absolute Auto 0.3 X10*3/uL (0.0-0.4); Eosinophils Percent Auto 4.4 % (0-4); Hematocrit 41.6 % (37.0-47.0); Imm Gran Abs Auto 0.01 X10*3/uL (0.00-0.03); Imm Gran Pct Auto 0.1 % (0.0-0.4); Lymphocytes Absolute Auto 3.3 X10*3/uL (1.2-4.9); Lymphocytes Percent Auto 45.4 % (20-40); Mean Corpuscular HGB Conc 33.7 g/dl (31.0-35.0); Mean Corpuscular Hemoglobin 31.8 pg (27.0-33.0); Mean Corpuscular Volume 94.5 fL (80.0-98.0); Mean Platelet Volume 9.9 fL (9.4-12.3); Monocytes Absolute Auto 0.6 X10*3/uL (0.1-1.2); Monocytes Percent Auto 8.7 % (2-11); Neutrophils Absolute Auto 2.9 x10*3/uL (2.0-8.3); Neutrophils Percent Auto 40.4 % (45-73); Platelet Count 322 X10*3/uL (160-400); Red Cell Distribution Width 13.5 % (11.0-16.0); White Blood Count 7.2 X10*3/uL (4.8-10.8)
[2022-12-05 07:16] LABS: Appearance Urine Clear; Color Urine Yellow; Glucose Urine UA Negative (Negative); Leukocyte Esterase Urine Moderate (2+) (Negative); Nitrite Urine Negative (Negative); Specific Gravity - Urine 1.015 (1.005-1.025); UMIC TRIGGER UACC YES; Urine Blood Negative (Negative); Urine Ketones Negative (Negative); Urine Protein Negative (Neg-Trace)
[2022-12-05 07:22] LABS: Bacteria Urine None Seen (None Seen); Hyaline Casts Urine 0-2 /LPF (0-2); RBC Urine 0-2 /HPF (0-2); Squamous Epithelial Cell Urine 0-2 /HPF (0-2); UACC Culture Trigger YES
[2022-12-05 07:28] LABS: Estimated Average Glucose 120 mg/dL; Hemoglobin A1c % 5.8 %
[2022-12-05 07:40] LABS: Alanine Aminotransferase 21 U/L (0-31); Albumin Level 4.1 g/dL (3.5-5.0); Alkaline Phosphatase 66 U/L (39-117); Anion Gap 15 (12-20); Aspartate Amino Transferase 25 U/L (5-31); Bilirubin Total 1.7 mg/dL (0.0-1.0); Blood Urea Nitrogen 16 mg/dL (9-16); Calcium 10.1 mg/dL (8.4-10.2); Carbon Dioxide 26 mmol/L (22-29); Chloride 105 mmol/L (96-108); Cholesterol 127 mg/dL; Estimated Glomerular Filt Rate > 60; Glucose Fasting 103 mg/dL (60-99); HDL Cholesterol 55 mg/dL; LDL Cholesterol Calculated 59 mg/dl; Potassium 4.5 mmol/L (3.3-5.1); Sodium 141 mmol/L (135-145); Total Protein 6.7 g/dL (6.5-8.0); Triglycerides 65 mg/dL
[2022-12-05 08:33] LABS: Folate 11.8 ng/mL (> or = 4.0); Free T4 (Free Thyroxine) 1.19 ng/dL (0.71-1.85); Thyroid Stimulating Hormone 0.31 uIU/mL (0.32-4.0); Vitamin B12 > 2000 pg/mL (200-900); Vitamin D 25-OH Total 36.3 ng/mL (>30)
== END 2022-12-05 05:58 | disposition home or self-care (01) ==
LOC: HO.LAB 05:57
PROVIDERS: PCP Internal Medicine; Visit Provider Internal Medicine
DX: E55.9 Vitamin D deficiency, unspecified (principal); R73.01 Impaired fasting glucose; E53.8 Deficiency of other specified B group vitamins; E03.9 Hypothyroidism, unspecified; I10 Essential (primary) hypertension; E78.00 Pure hypercholesterolemia, unspecified; R82.90 Unspecified abnormal findings in urine
CPT/HCPCS: 36415; 80053; 80061; 81001; 81003; 82306; 82607; 82746; 83036; 84439; 84443; 85025; 87086

== ENCOUNTER → 2022-12-10 08:11 | Outpatient (BNVA) | payer OTHER, SELFPAY ==
[2022-06-18 07:37] VITALS: BMI 24.5
[2022-08-26 10:44] VITALS: BP 128/66; BP 142/72
== END ==
PROVIDERS: PCP Internal Medicine; Referring Provider Internal Medicine; Visit Provider Internal Medicine Cardiovascular Disease
DX: I35.0 Nonrheumatic aortic (valve) stenosis (principal); I25.10 Atherosclerotic heart disease of native coronary artery without angina pectoris
CPT/HCPCS: 99212

== ENCOUNTER 2023-02-20 06:12 | Outpatient (REF) | payer OTHER, SELFPAY ==
[2022-06-18 07:37] VITALS: BMI 24.5
[2022-08-26 10:44] VITALS: BP 128/66; BP 142/72
[2023-02-20 08:54] LABS: Appearance Urine Clear; Color Urine Yellow; Glucose Urine UA Negative (Negative); Leukocyte Esterase Urine Large (3+) (Negative); Nitrite Urine Negative (Negative); Specific Gravity - Urine 1.015 (1.005-1.025); UMIC TRIGGER UACC YES; Urine Blood Trace (Negative); Urine Ketones Negative (Negative); Urine Protein Negative (Neg-Trace)
[2023-02-20 09:05] LABS: Bacteria Urine None Seen (None Seen); Hyaline Casts Urine 0-2 /LPF (0-2); RBC Urine 0-2 /HPF (0-2); Squamous Epithelial Cell Urine 0-2 /HPF (0-2); UACC Culture Trigger YES; WBC Urine >50 /HPF (0-5)
== END 2023-02-20 06:13 | disposition home or self-care (01) ==
LOC: HO.LAB 06:12
PROVIDERS: PCP Internal Medicine; Visit Provider Internal Medicine
DX: R30.0 Dysuria (principal)
CPT/HCPCS: 81001; 87086; 87088; 87186

== ENCOUNTER 2023-04-20 07:25 | Outpatient (REF) | payer OTHER, SELFPAY ==
[2022-06-18 07:37] VITALS: BMI 24.5
[2022-08-26 10:44] VITALS: BP 128/66; BP 142/72
--- NOTE | ~2023-04-20 | MM_ITS ---
EXAMINATION: MM SCREENING DIGITAL BREAST TOMOSYNTHESIS, BILATERAL CLINICAL INFORMATION: Screening. Asymptomatic. The lifetime risk of breast cancer based on the Tyrer-Cuzick Model is 0.9%. COMPARISON: Mammography: This study is compared with prior exams dating back to 2017. TECHNIQUE: Digital breast tomosynthesis is performed in both the craniocaudal and mediolateral oblique views along with computer-aided detection (CAD). Synthesized 2D images are generated from the tomosynthesis. FINDINGS: There are scattered areas of fibroglandular density (ACR BI-RADS breast composition Category b). There are no significant masses, abnormal calcifications, or other abnormalities. MM/MM tomosynthesis screening BI IMPRESSION: No mammographic evidence of malignancy. ASSESSMENT: BI-RADS BI-RADS 1 - Negative RECOMMENDATION: Routine annual mammography screening. 1 year F/U This examination should not preclude the clinical evaluation of a suspicious palpable abnormality. This patient's information was entered into a reminder system with a target due date for their next mammogram.
== END 2023-04-20 07:26 | disposition home or self-care (01) ==
LOC: HO.MAMMO 07:25
PROVIDERS: PCP Internal Medicine; Visit Provider Internal Medicine
DX: Z12.31 Encounter for screening mammogram for malignant neoplasm of breast (principal)
CPT/HCPCS: 77063; 77067

== ENCOUNTER → 2023-04-20 07:45 | Outpatient (BNV) | payer OTHER, SELFPAY ==
[2022-06-18 07:37] VITALS: BMI 24.5
[2022-08-26 10:44] VITALS: BP 128/66; BP 142/72
== END ==
PROVIDERS: PCP Internal Medicine; Visit Provider Radiology Diagnostic Radiology
DX: Z12.31 Encounter for screening mammogram for malignant neoplasm of breast (principal)
CPT/HCPCS: 77063; 77067

== ENCOUNTER → 2023-06-29 07:38 | Outpatient (REF) | payer OTHER, SELFPAY ==
[2022-06-18 07:37] VITALS: BMI 24.5
[2022-08-26 10:44] VITALS: BP 128/66; BP 142/72
--- NOTE | 2023-06-29 07:41 | CA_ITS ---
Transthoracic Echocardiogram Patient (Last, First, Middle): Joana Purdy M Gender: Female Date of : 1945 Age: 77 Procedure Date: 06/29/2023 Procedure Type: Transthoracic Echocardiogram Location: OP Height: 157.48 cm Weight: 62.6 kg BSA: 1.63 m2 Heart Rate: 59 bpm BP: 122 / 68 mmHg Cloth Mercerizer Operator: SB Referring MD: Nik Herrera MD Symptoms: I35.0 - Nonrheumatic aortic (valve) stenosis Study Quality: Adequate ECG Rhythm: Bradycardia Conclusions: - The left ventricular systolic function is normal. The visually estimated ejection fraction is between 55-60%. - Evidence suggests grade II (moderate) diastolic dysfunction. - There is moderate aortic valve stenosis. - There is mild mitral annular calcification. Findings Left Ventricle Normal left ventricular cavity size. There is normal left ventricular wall thickness. The left ventricular systolic function is normal. The visually estimated ejection fraction is between 55-60%. There is no evidence of regional wall motion abnormalities. Evidence suggests grade II (moderate) diastolic dysfunction. Right Ventricle Normal right ventricular cavity size and systolic function. Atria The left atrium is mildly dilated. The right atrium is normal in size. Aortic Valve There is moderate calcification of the aortic valve. There is moderate aortic valve stenosis. The peak aortic velocity is 2.73 m/s with a calculated peak gradient of 30 mmHg. The mean gradient is 16 mmHg. The aortic valve area is 1.00 cm2. There is no aortic valve regurgitation. Dimensionless index 0.34. Stroke volume index 39ml/m2. Mitral Valve There is mild mitral annular calcification. There is trace mitral valve regurgitation. There is no mitral valve stenosis. Pulmonic Valve The pulmonic valve is likely normal. Tricuspid Valve Normal tricuspid valve structure. There is trace tricuspid valve regurgitation. There is no evidence of pulmonary hypertension. Great Vessels The asc aorta is normal in size. Venous The inferior vena cava is normal in size and collapses greater than 50% with inspiration. Pericardium/Pleural There is no evidence of pericardial effusion. Prior Study Comparison No significant change compared to prior study dated: 07/03/2022. Measurements 2D Linear Measurements IVSd: 1.00 0.6-0.9/0.6-1.0 cm LVIDd: 4.50 3.9-5.3/4.2-5.9 cm LVIDd Index: 2.76 2.4-3.2/2.2-3.1 cm/m2 LVIDs: 3.10 2.0-3.6 cm LVPWd: 0.80 0.7-1.1 cm LA Diam: 3.10 2.7-3.8/3.0-4.0 cm LAIDs Index: 1.90 1.5-2.3 cm/m2 LV Mass: 165.28 67-162/88-224 g LV Mass Index: 101.40 43-95/49-115 g/m2 LVOT Diam: 1.90 3.0+(-)1.3 cm 2D Systolic Function EF 4C: 69.30 >55% Mitral Valve MV Pk E: 1.07 MV PK A: 0.80 MV Decel Time: 209.00 E/A: 1.30 E'Lateral: 7.18 E'Medial: 5.22 E/E' Med: 20.50 E/E' Lat: 14.90 PHT: 61.00 MVA PHT: 3.61 Decel [place]: 5.09 Aortic Valve AoV Pk Trell: 2.73 AoV Mn Trell: 1.88 AoV VTI: 0.64 AoV Pk Grad: 30.00 Aov Mn Grad: 16.00 MATILDE Cont.VTI: 1.00 LVOT LVOT Pk Trell: 0.93 LVOT Mn Trell: 0.64 LVOT VTI: 0.23 LVOT Pk Grad: 3.00 LVOT Mn Grad: 2.00 LVOT Diam: 1.90 LVOT Area: 2.84 Diastolic Function MV Pk E: 1.07 MV Pk A: 0.80 E/A: 1.30 E'Medial: 5.22 E/E' Med: 20.50 E' Laterial: 7.18 E/E' Lat: 14.90 Right Ventricle TAPSE (mm): 22.30 TVS' Trell: 10.60 Tricuspid Valve TR Pk Trell: 2.22 TR Pk Grad: 20.00 RA Press: 3.00 RVSP: 23.00 Great Vessels Aorta Sinus of Valsalva: 2.70 2.0-3.5 cm Ao Asc: 3.20 2.1-3.4 cm Pulmonary Veins Pulm Vein S/D 1.00 Pulmonary Valve PV Pk Trell: 0.82 Peak PV Grad: 3.00 Updated in Other Vendor System with Status of Final Lawrence Milan MD electronically signed on 06/30/2023 11:06:44 AM with status of Final
== END ==
LOC: HO.CARD 07:38
PROVIDERS: PCP Internal Medicine; Visit Provider Internal Medicine Cardiovascular Disease
DX: I35.0 Nonrheumatic aortic (valve) stenosis (principal)
CPT/HCPCS: 93306

== ENCOUNTER → 2023-06-29 07:41 | Outpatient (BNV) | payer OTHER, SELFPAY ==
[2022-06-18 07:37] VITALS: BMI 24.5
[2022-08-26 10:44] VITALS: BP 128/66; BP 142/72
== END ==
PROVIDERS: PCP Internal Medicine; Visit Provider Internal Medicine
DX: I35.0 Nonrheumatic aortic (valve) stenosis (principal)
CPT/HCPCS: 93306

== ENCOUNTER 2023-08-13 08:38 | Outpatient (AMB) | payer OTHER, SELFPAY ==
[2022-06-18 07:37] VITALS: BMI 24.5
[2022-08-26 10:44] VITALS: BP 128/66; BP 142/72
--- NOTE | 2023-08-13 08:40 | MHC.OFFVIS ---
Intake Vital Signs 08/13/23 08:41 Height 5 ft 2 in Weight 134 lb 7.712 oz BMI 24.6 BP 114/72 Blood Pressure Location Lt brachial Position Sitting Pulse 66 Intake Visit Reasons: f/up echo Intake Note: Follow-up after echo with ekg c/o some sob with stairs Economic Analyst Required: No Allergies Penicillins [PENICILLINS] Allergy (Intermediate, Verified 02/26/23 10:24) HIVES codeine [CODEINE] Adverse Reaction (Intermediate, Verified 02/26/23 10:24) CONFUSION Medication List - Last Reconciled 08/13/23 by Nik Herrera MD albuterol sulfate 90 mcg/actuation 2 puffs inhalation Q4-6H PRN aspirin 81 mg PO DAILY atorvastatin 80 mg PO DAILY 90 days ezetimibe (Zetia) 10 mg PO DAILY levothyroxine 75 mcg PO QAM 90 days lisinopril 5 mg PO DAILY 90 days lorazepam 0.5 mg PO BID PRN 30 days metoprolol succinate ER 25 mg PO DAILY 90 days omeprazole 40 mg PO DAILY 90 days HPI HPI Comments History of Present Illness Details Joana comes for follow-up. She denies any cardiac symptoms. Denies any exertional chest pain or shortness of breath. Denies orthopnea, PND, leg edema. Takes all her medications. Recent echocardiogram showed moderate aortic stenosis with normal LV ejection fraction. Denies any palpitations, lightheadedness, syncope. [facility] Medical History Aortic stenosis 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 Benign essential hypertension Overweight (BMI 25.0-29.9) Anxiety Insomnia Peripheral neuropathy Vitamin B12 deficiency Impaired fasting glucose Cardiac murmur Anemia GERD without esophagitis Allergic rhinitis COPD (chronic obstructive pulmonary disease) Acquired hypothyroidism Pure hypercholesterolemia Surgical History S/P coronary artery stent placement (~07/2021) Family History Father Medical history unknown Mother Medical history unknown Social History Housing: House Alcohol intake: never Patient Tobacco Use Status: Current everyday Tobacco user Tobacco use type: Cigarette Cigarette Packs Per Day: 0.10 Cigarettes Per Day: 2 Years Smoked: 50+ e-Cigarette/Vaping Use: Never Used Second Hand Smoke Exposure: Yes service: No Current occupational status: retired Cognitive needs: No Hearing needs: No Vision needs: Yes (Glasses) Review of Systems Const Denies chills, Denies fatigue, Denies fever(s), Denies frequent falls, Denies weakness, Denies weight gain and Denies weight loss ENT Denies dizziness Card Denies chest pain, Denies leg edema, Denies lightheadedness, Denies palpitations, Denies dyspnea, Denies dyspnea on exertion, Denies orthopnea and Denies other (loss of consciousness) Resp Denies cough, Denies dyspnea and Denies dyspnea on exertion GI Denies hematochezia and Denies change in stool character Musc Denies abnormal gait, Denies muscle weakness, Denies numbness, Denies radiating pain into limb and Denies tingling Neuro Denies abnormal gait, Denies dizziness, Denies frequent falls, Denies numbness, Denies tingling and Denies weakness Endo Denies fatigue and Denies palpitations Physical Exam Vital Signs: Last Vital Signs Pulse 66 08/13/23 08:41 BP 114/72 08/13/23 08:41 BMI result Body Mass Index 24.6 Const General: cooperative, comfortable, no acute distress, alert, awake and anxious Nutritional Appearance: overweight Orientation/consciousness: patient oriented x3 Limitations: no limitations Neck Neck: Yes trachea midline, Yes supple and Yes no JVD Chest Chest palpation & inspection: normal inspection of the chest Resp Effort & Inspection: normal respiratory effort Auscultation: clear to auscultation bilaterally Cardio Jugular venous distension: no JVD Palpation: normal PMI Rate: regular rate Rhythm: regular rhythm Heart sounds: S1 normal heart sound present, S2 normal heart sound present, no click, no gallops and Murmur heart sound present systolic mid, decrescendo, crescendo and harsh Peripheral pulses: Peripheral pulses 2+ throughout GI Auscultation: normal bowel sounds Skin General skin exam: no rashes or lesions noted Neuro General: patient oriented x3 and no focal motor deficits Extrem General: Yes no clubbing, cyanosis or edema Psych Appearance: grossly normal Affect: Anxious affect present Office Procedures EKG Details: EKG shows normal sinus rhythm normal EKG [id number], Complete Assessment & Plan Assessment & Plan (1) CAD (coronary artery disease): Comment: S/P Inferior STEMI in 07/2021 - had PCI x 2 Code(s): I25.10 - Atherosclerotic heart disease of [place] coronary artery without angina pectoris Qualifiers: Associated angina: without angina Coronary Disease-Associated Artery/Lesion type: [place] artery [place] vs. transplanted heart: [place] heart Qualified Code(s): I25.10 - Atherosclerotic heart disease of [place] coronary artery without angina pectoris Plan: CAD status post prior stenting with inferior STEMI in 2020. Patient currently having no cardiac symptoms. Continue aggressive risk factor modification. Continue low-dose aspirin therapy for life. Continue high-intensity statin therapy and ezetimibe therapy with target goal LDL less than 70 mg/dL. Blood pressure is currently well optimized. Target goal blood pressure less than 130/84. Advised to monitor blood pressure at home maintain a log. Maintain activity level as tolerated. She does have exertional shortness of breath which is stable and most likely related diastolic dysfunction. (2) Aortic stenosis: Code(s): I35.0 - Nonrheumatic aortic (valve) stenosis Qualifiers: Cardiac valve disease etiology: nonrheumatic Qualified Code(s): I35.0 - Nonrheumatic aortic (valve) stenosis Plan: Nonrheumatic aortic stenosis which is moderate in severity. Clinically currently having no symptoms. Continue aggressive risk factor modification above. Pathophysiology of aortic stenosis were discussed. Progressive nature of aortic stenosis were discussed. Follow-up echocardiogram in 1 year's time. Continue medical management for now. Cardinal symptoms associated with aortic stenosis were discussed. Will follow up in the clinic in 1 year's time, sooner p.r.n.. Thank you for allowing me to partake in her care Orders: Orders CA echo transthoracic complete 50 Weeks I35.0 - Nonrheumatic aortic (valve) stenosis Coding Level of Care Code Est Pt Level 4 (56689) Diagnoses Coronary artery disease involving [place] coronary artery of [place] heart without angina pectoris I25.10 Associated angina: without angina Coronary Disease-Associated Artery/Lesion type: [place] artery [place] vs. transplanted heart: [place] heart Nonrheumatic aortic valve stenosis I35.0 Cardiac valve disease etiology: nonrheumatic CPT Codes EKG - CPT: 63464-[id number], Complete ([id number])
[2023-08-13 08:41] VITALS: BP 114/72; PULSE 66; BMI 24.6
== END 2023-08-13 09:12 | disposition home or self-care (01) ==
PROVIDERS: Visit Provider Internal Medicine Cardiovascular Disease
DX: I25.10 Atherosclerotic heart disease of native coronary artery without angina pectoris (principal); I35.0 Nonrheumatic aortic (valve) stenosis
CPT/HCPCS: 93010; 99214

== ENCOUNTER → 2023-08-13 08:38 | Outpatient (BNVA) | payer OTHER, SELFPAY ==
[2022-06-18 07:37] VITALS: BMI 24.5
[2022-08-26 10:44] VITALS: BP 128/66; BP 142/72
== END ==
PROVIDERS: Visit Provider Internal Medicine Cardiovascular Disease
DX: I25.10 Atherosclerotic heart disease of native coronary artery without angina pectoris (principal); I35.0 Nonrheumatic aortic (valve) stenosis
CPT/HCPCS: 93005; 99212

== ENCOUNTER 2023-08-28 05:59 | Outpatient (REF) | payer OTHER, SELFPAY ==
[2022-06-18 07:37] VITALS: BMI 24.5
[2022-08-26 10:44] VITALS: BP 128/66; BP 142/72
[2023-08-28 07:12] LABS: Basophils Absolute Auto 0.1 X10*3/uL (0.0-0.2); Basophils Percent Auto 0.8 % (0-2); Eosinophils Absolute Auto 0.4 X10*3/uL (0.0-0.4); Eosinophils Percent Auto 4.9 % (0-4); Hematocrit 40.5 % (37.0-47.0); Hemoglobin 13.5 g/dl (12.0-16.0); Imm Gran Abs Auto 0.02 X10*3/uL (0.00-0.03); Imm Gran Pct Auto 0.3 % (0.0-0.4); Lymphocytes Absolute Auto 3.5 X10*3/uL (1.2-4.9); Lymphocytes Percent Auto 43.7 % (20-40); MANUAL DIFF FLAG NO; Mean Corpuscular HGB Conc 33.3 g/dl (31.0-35.0); Mean Corpuscular Hemoglobin 31.5 pg (27.0-33.0); Mean Corpuscular Volume 94.4 fL (80.0-98.0); Mean Platelet Volume 9.8 fL (9.4-12.3); Monocytes Absolute Auto 0.8 X10*3/uL (0.1-1.2); Monocytes Percent Auto 10.2 % (2-11); Neutrophils Absolute Auto 3.2 x10*3/uL (2.0-8.3); Neutrophils Percent Auto 40.1 % (45-73); Platelet Count 336 X10*3/uL (160-400); Red Blood Count 4.29 X10*6/uL (4.20-5.50); Red Cell Distribution Width 13.4 % (11.0-16.0)
[2023-08-28 07:20] LABS: Estimated Average Glucose 117 mg/dL; Hemoglobin A1c % 5.7 % (<6.0)
[2023-08-28 07:32] LABS: Appearance Urine Clear; Color Urine Yellow; Glucose Urine UA Negative (Negative); Leukocyte Esterase Urine Moderate (2+) (Negative); Nitrite Urine Negative (Negative); UMIC TRIGGER UACC YES; Urine Blood Negative (Negative); Urine Ketones Negative (Negative); Urine Protein Negative (Neg-Trace)
[2023-08-28 07:40] LABS: Alanine Aminotransferase 24 U/L (0-31); Albumin Level 4.1 g/dL (3.5-5.0); Alkaline Phosphatase 66 U/L (39-117); Anion Gap 11 (12-20); Aspartate Amino Transferase 25 U/L (5-31); Bilirubin Total 1.5 mg/dL (0.0-1.0); Blood Urea Nitrogen 19 mg/dL (9-16); Calcium 9.9 mg/dL (8.4-10.2); Carbon Dioxide 28 mmol/L (22-29); Chloride 107 mmol/L (96-108); Cholesterol 151 mg/dL (<200); Estimated Glomerular Filt Rate > 60; Glucose Fasting 111 mg/dL (60-99); HDL Cholesterol 66 mg/dL (>40); LDL Cholesterol Calculated 72 mg/dL (<100); Potassium 4.3 mmol/L (3.3-5.1); Sodium 142 mmol/L (135-145); Total Protein 7.2 g/dL (6.5-8.0); Triglycerides 68 mg/dL (<150)
[2023-08-28 07:47] LABS: Bacteria Urine None Seen (None Seen); Hyaline Casts Urine 0-2 /LPF (0-2); RBC Urine 0-2 /HPF (0-2); Squamous Epithelial Cell Urine 0-2 /HPF (0-2); UACC Culture Trigger YES
[2023-08-28 07:47] LABS: Free T4 (Free Thyroxine) 1.27 ng/dL (0.71-1.85); Thyroid Stimulating Hormone 0.23 uIU/mL (0.32-4.0); Vitamin D 25-OH Total 39.3 ng/mL (>30)
[2023-08-28 08:06] LABS: Folate 9.8 ng/mL (> or = 4.0); Vitamin B12 1089 pg/mL (200-900)
== END 2023-08-28 06:00 | disposition home or self-care (01) ==
LOC: HO.LAB 05:59
PROVIDERS: PCP Internal Medicine; Visit Provider Internal Medicine
DX: I10 Essential (primary) hypertension (principal); E11.9 Type 2 diabetes mellitus without complications; E03.9 Hypothyroidism, unspecified; E78.00 Pure hypercholesterolemia, unspecified; E53.8 Deficiency of other specified B group vitamins; E55.9 Vitamin D deficiency, unspecified; R30.0 Dysuria
CPT/HCPCS: 36415; 80053; 80061; 81001; 82306; 82607; 82746; 83036; 84439; 84443; 85025; 87086

== ENCOUNTER 2023-09-02 08:38 | Outpatient (AMB) | payer OTHER, SELFPAY ==
[2022-06-18 07:37] VITALS: BMI 24.5
[2022-08-26 10:44] VITALS: BP 128/66; BP 142/72
[2023-09-02 08:40] VITALS: BP 132/88; PULSE 59; O2SAT 98; BMI 25.1
--- NOTE | 2023-09-02 08:40 | MHC.PC.OV ---
Vital Signs 09/02/23 08:40 Height 5 ft 2 in Weight 137 lb 2 oz BMI 25.1 BP 132/88 Blood Pressure Location Lt brachial Position Sitting Pulse 59 Pulse Source Pulse Oximeter Pulse Oximetry (%) 98 Oxygen Delivery Method Room Air Intake Visit Reasons: hyperlipidemia, HTN,hypothyroidism,aortic stenosis Technician Trainee Required: No Accompanied by: Self / Same As Patient Allergies Penicillins [PENICILLINS] Allergy (Intermediate, Verified 09/02/23 09:36) HIVES codeine [CODEINE] Adverse Reaction (Intermediate, Verified 09/02/23 09:36) CONFUSION Medication List - Last Reconciled 09/02/23 by Jermain Lozano MD albuterol sulfate 90 mcg/actuation 2 puffs inhalation Q4-6H PRN aspirin 81 mg PO DAILY atorvastatin 80 mg PO DAILY ezetimibe (Zetia) 10 mg PO DAILY levothyroxine 75 mcg PO QAM 90 days lisinopril 5 mg PO DAILY 90 days lorazepam 0.5 mg PO BID PRN 30 days metoprolol succinate ER 25 mg PO DAILY 90 days omeprazole 40 mg PO DAILY 90 days Tobacco use date assessed: 09/02/23 Fall risk assessment: No Falls in past year Last assessed Fall Risk: 09/02/23 Dental Screening Dental Screen Date: 09/02/23 Did you have a dental visit in the last 12 months?: No Did you have a dental problem in the last 6 months where you did not have access to dental care?: No Was dental information given to patient?: Patient has dentist HPI hyperlipidemia, HTN,hypothyroidism,aortic stenosis HPI Details Patient comes in today for her follow up visit States that she has been experiencing problems sleeping for a while now States that her Lorazepam helps and knocks her out but only for a couple of hours; she would then wake up in the middle of the night and it takes a long time for her to fall asleep again States that she feels okay otherwise She denies any headaches or dizziness Denies any chest pains, no SOB No nausea/vomiting, no abdominal pain No change in bowel habits noted Needs her Lorazepam Rx refilled Had her follow up labs done last week - to discuss her results [facility] Medical History Aortic stenosis 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 Benign essential hypertension Overweight (BMI 25.0-29.9) Anxiety Insomnia Peripheral neuropathy Vitamin B12 deficiency Impaired fasting glucose Cardiac murmur Anemia GERD without esophagitis Allergic rhinitis COPD (chronic obstructive pulmonary disease) Acquired hypothyroidism Pure hypercholesterolemia Surgical History S/P coronary artery stent placement (~07/2021) Family History Father Medical history unknown Mother Medical history unknown Social History Housing: House Alcohol intake: never Patient Tobacco Use Status: Current everyday Tobacco user Tobacco use type: Cigarette Cigarette Packs Per Day: 0.10 Cigarettes Per Day: 2 Years Smoked: 50+ e-Cigarette/Vaping Use: Never Used Second Hand Smoke Exposure: Yes service: No Current occupational status: retired Cognitive needs: No Hearing needs: No Vision needs: Yes (Glasses) Questionnaire PHQ-9 Over the last 2 weeks, how often have you been bothered by any of the following problems? 1. Little interest or pleasure in doing things: not at all 2. Feeling down, depressed, or hopeless: not at all 3. Trouble falling or staying asleep, or sleeping too much: not at all 4. Feeling tired or having little energy: not at all 5. Poor appetite or overeating: not at all 6. Feeling bad about yourself - or that you are a failure or have let yourself or your family down: not at all 7. Trouble concentrating on things, such as reading the newspaper or watching television: not at all 8. Moving or speaking so slowly that other people could have noticed. Or the opposite - being so fidgety or restless that you have been moving around a lot more than usual: not at all 9. Thoughts that you would be better off or of hurting yourself in some way: not at all Total score: 0 Depression Screening Interpretation: Negative Depression Screening Done: Yes 22313 - PHQ-9 Billing: Yes Source: Developed by Drs. Durga Mc, Minerva Sparks, Charlie Joya and colleagues, with an educational gail from [employer]. Thrive Questionnaire Date Thrive assessed: 09/02/23 I am a: Patient What is your living situation today?: I have a steady place to live Within the past 12 months, did the food you bought not last and you didn't have the money to get more?: Never true Within the past 12 months, did you worry whether your food would run out before you got money to buy more?: Never true Do you have trouble paying for medicines?: No Do you have trouble getting transportation to medical appointments?: No Do you have trouble paying your heating and electricity bill?: No Do you have trouble taking care of your child, family member or friend?: No Do you have trouble with day-to-day activities such as bathing, preparing meals, shopping, managing finances, etc.?: No Are you currently unemployed and looking for a job?: No Are you interested in more education?: No Please select the resources that you would like help with: None Currently or been in a relationship where the following occur: no concerns reported AUDIT C Alcohol Use Questionnaire (AUDIT-C) 1. How often do you have a drink containing alcohol?: Never 3. How often do you have six or more drinks on one occasion?: Never Total Score: 0 Score Reviewed/Action Taken: Yes KEIRY-7 AMB Questionnaire KEIRY-7 Date KEIRY - 7 assessed: 09/02/23 Feeling nervous, anxious, or on edge: 0 = Not at all Not being able to stop or control worryin = Not at all Worrying too much about different things: 0 = Not at all Trouble relaxin = Not at all Being so restless that it is hard to sit still: 0 = Not at all Becoming easily annoyed or irritable: 0 = Not at all Feeling afraid as if something awful might happen: 0 = Not at all Total KEIRY-7 score (0-4 normal; 5-9 mild; 10-14 moderate; 15-21 severe): 0 Source: Developed by Drs. Durga Mc, Minerva Sparks, Charlie Joya and colleagues, with an educational gail from [employer]. Review of Systems Const Reports difficulty sleeping, Denies fatigue, Denies fever(s) and Denies headache(s) ENT Denies dysphagia, Denies dizziness, Denies otalgia, Denies headache(s), Denies neck pain, Denies odynophagia and Denies sore throat Card Denies chest pain, Denies palpitations and Reports dyspnea on exertion (occasionally) Resp Denies cough, Reports dyspnea on exertion (occasionally) and Denies wheezing GI Denies abdominal pain, Denies constipation, Denies dysphagia, Denies heartburn, Denies diarrhea, Denies nausea, Denies odynophagia and Denies vomiting Denies difficulty voiding, Denies nocturia, Denies dysuria and Denies urinary urgency Musc Reports arthralgias (right shoulder, on and off) and Denies neck pain Skin/Breast Denies rash Neuro Denies dizziness and Denies headache(s) Psych Reports anxiety Endo Denies fatigue and Denies palpitations Aller/Immun Denies wheezing Physical exam (Primary Care) Vital Signs: Last Vital Signs Pulse 59 09/02/23 08:40 BP 132/88 09/02/23 08:40 Pulse Ox 98 09/02/23 08:40 Oxygen Delivery Method Room Air 09/02/23 08:40 BMI result Body Mass Index 25.1 Tobacco/Smoking Status: Tobacco use Status Tobacco use date assessed 09/02/23 09/02/23 08:46 Patient Tobacco Use Status Current everyday Tobacco 09/02/23 08:46 Tobacco use type Cigarette 09/02/23 08:46 e-Cigarette/Vaping Use Never Used 09/02/23 08:46 PHQ-9: PHQ-9 Score PHQ-9: Total score 0 09/02/23 09:31 Depression Screening Interpretation: Negative Thrive Assessment: Date of Thrive Assessment Date Thrive assessed 09/02/23 09/02/23 08:46 Currently or been in a relationship where the following occur: no concerns reported Const General: no acute distress and alert HENMT Ears: TM's normal bilaterally and EAC's normal Throat: Yes posterior oropharynx normal and Yes tonsils normal (no TP congestion noted) Neck Neck: Yes no lymphadenopathy and Yes supple Resp Auscultation: clear to auscultation bilaterally, no rales, no wheezes and diminished lung sounds (slightly) bilateral Cardio Rate: regular rate Rhythm: regular rhythm Heart sounds: Murmur heart sound present systolic III/ GI Palpation (GI): Soft to palpation and nontender Auscultation: normal bowel sounds Skin Rashes: no rashes Extrem General: Yes no clubbing, cyanosis or edema Results Reviewed Results Reviewed: Laboratory Tests 08/28/23 08/28/23 08/28/23 06:00 06:03 06:03 WBC 8.0 Hgb 13.5 Hct 40.5 Plt Count 336 Sodium Potassium Creatinine Estimated GFR Fasting Glucose Hemoglobin A1c % Calcium Total Bilirubin AST ALT Triglycerides Cholesterol LDL Cholesterol, Calc HDL Cholesterol Vitamin B12 25-OH Vitamin D Total TSH Free T4 Ur Specific [place] 1.020 Urine Protein Negative Urine Glucose (UA) Negative Urine Blood Negative 08/28/23 08/28/23 08/28/23 06:11 06:11 06:11 WBC Hgb Hct Plt Count Sodium 142 Potassium 4.3 Creatinine 0.85 Estimated GFR > 60 Fasting Glucose 111 H Hemoglobin A1c % 5.7 Calcium 9.9 Total Bilirubin 1.5 H AST 25 ALT 24 Triglycerides 68 Cholesterol 151 LDL Cholesterol, Calc 72 HDL Cholesterol 66 Vitamin B12 1089 H 25-OH Vitamin D Total 39.3 TSH 0.23 L Free T4 1.27 Ur Specific [place] Urine Protein Urine Glucose (UA) Urine Blood Assessment and Plan Assessment & Plan (1) CAD (coronary artery disease): Comment: S/P Inferior STEMI in 07/2021 - had PCI x 2 Code(s): I25.10 - Atherosclerotic heart disease of [place] coronary artery without angina pectoris Plan: Asymptomatic from cardiac standpoint Continue Aspirin 81 mg QD and Metoprolol ER 25 mg QD; has been on Brilinta 90 mg QD and this was discontinued by cardiology 1 year S/P PCI Follow up with cardiology as scheduled (2) Aortic stenosis: Code(s): I35.0 - Nonrheumatic aortic (valve) stenosis Plan: Appears moderate based on her echocardiogram in June 2022 Repeat echocardiogram done in June 2023 showed no significant change from a year ago - the left ventricular systolic function is normal. The visually estimated ejection fraction is between 55-60%. Findings suggest (+) grade II (moderate) diastolic dysfunction: there is moderate aortic valve stenosis and mild mitral annular calcification. Per cardiology, still no intervention is indicated at this time as patient does not appear to have any symptoms related to She has been advised to continue aggressive risk factor modification and reminded to call for evaluation/examination as soon as she starts experiencing -related symptoms, particularly increasing FOSTER and fatigue Follow up with cardiology as scheduled (3) Pure hypercholesterolemia: Code(s): E78.00 - Pure hypercholesterolemia, unspecified Plan: Results of her labs done last week reviewed and discussed with patient Reinforced low cholesterol diet Continue Atorvastatin 80 mg QD Will recheck her labs and fasting lipids in 6 months for follow up (4) Benign essential hypertension: Code(s): I10 - Essential (primary) hypertension Plan: Reinforced low sodium diet - goal is systolic BP of at least 120 mm or less Continue Lisinopril 5 mg QD and Metoprolol ER 25 mg QD (5) Acquired hypothyroidism: Code(s): E03.9 - Hypothyroidism, unspecified Plan: Free T4 was again normal on her recent labs; TSH is still suppressed; patient appears clinically euthyroid Continue Levothyroxine 75 mcg QD Will continue to monitor her TFTs regularly (6) Impaired fasting glucose: Code(s): R73.01 - Impaired fasting glucose Plan: HgbA1c was normal at 5.7% on her recent labs; FBS was slightly elevated at 111 mg/dl Reinforced low calorie diet Will recheck her HgbA1c and FBS in 6 months for follow up (7) COPD (chronic obstructive pulmonary disease): Code(s): J44.9 - Chronic obstructive pulmonary disease, unspecified Plan: Stable lately with no acute flare ups Has her Albuterol inhaler but states that she has not felt the need to use her inhaler lately (8) GERD without esophagitis: Comment: EGD done [place] [address] Fuentes - GE junction appeared irregular and biopsy done revealed chronic inflammatory changes consistent with GERD Code(s): K21.9 - Gastro-esophageal reflux disease without esophagitis Plan: Dietary restrictions reinforced Continue Omeprazole 40 mg QD (9) Anemia: Code(s): D64.9 - Anemia, unspecified Plan: Corrected - H/H has remained normal on her recent labs Will continue to monitor her CBC regularly (10) Allergic rhinitis: Code(s): J30.9 - Allergic rhinitis, unspecified Plan: Follow up with ENT as scheduled Has been advised to continue using her saline nasal gel regularly Was being considered for some procedure for her nasal septum but she ended up with an DE subsequently, so this has been held up since (11) Vitamin B12 deficiency: Code(s): E53.8 - Deficiency of other specified B group vitamins Plan: B12 level is again normal on her recent labs As her level is now high, have advised her to cut back on her oral Vitamin B12 tablets to just twice a week instead of daily Will recheck her B12 level in 6 months for follow up (12) Pyuria: Code(s): R82.81 - Pyuria Plan: Still (+) pyuria noted on her recent urinalysis done last week; patient reports no acute urinary symptoms Her urine C/S grew 10,000 to 50,000 cfu of pseudomonae aeruginosa previously and she was treated empirically with Levofloxacin 500 mg QD x 5 days Her recent urine C/S came back negative (13) Insomnia: Code(s): G47.00 - Insomnia, unspecified Plan: Sleep hygiene reinforced Have advised patient that she can try some OTC Melatonin for sleep - reassured that Melatonin have very little side effects and are not habit-forming and should be safe for her to take (14) Anxiety: Code(s): F41.9 - Anxiety disorder, unspecified Plan: Continue Lorazepam 0.5 mg BID PRN - Rx refilled Plan Follow up in 6 months Orders: Orders Complete Blood Count Auto Diff 6 Months I10 - Essential (primary) hypertension Comprehensive [place]. Panel Fast 6 Months E78.00 - Pure hypercholesterolemia, unspecified Hemoglobin A1c 6 Months R73.01 - Impaired fasting glucose Vitamin B12 and Folate 6 Months E53.8 - Deficiency of other specified B group vitamins Thyroid Stimulating Hormone 6 Months E03.9 - Hypothyroidism, unspecified Free T4 (Free Thyroxine) 6 Months E03.9 - Hypothyroidism, unspecified Lipid Panel 6 Months E78.00 - Pure hypercholesterolemia, unspecified Vitamin D 25-OH Total 6 Months E55.9 - Vitamin D deficiency, unspecified UA CC w/rflx Micro + Cult 6 Months R30.0 - Dysuria Medications: Refilled lorazepam 0.5 mg PO BID PRN 60 tabs 0RF anxiety 30 days Coding Level of Care Code Est Pt Level 4 (84933) Diagnoses CAD (coronary artery disease) I25.10 Aortic stenosis I35.0 Pure hypercholesterolemia E78.00 Benign essential hypertension I10 Acquired hypothyroidism E03.9 Impaired fasting glucose R73.01 COPD (chronic obstructive pulmonary disease) J44.9 GERD without esophagitis K21.9 Anemia D64.9 Allergic rhinitis J30.9 Vitamin B12 deficiency E53.8 Pyuria R82.81 Insomnia G47.00 Anxiety F41.9
== END 2023-09-02 09:39 | disposition home or self-care (01) ==
PROVIDERS: PCP Internal Medicine; Visit Provider Internal Medicine
DX: I25.10 Atherosclerotic heart disease of native coronary artery without angina pectoris (principal); J44.9 Chronic obstructive pulmonary disease, unspecified; I35.0 Nonrheumatic aortic (valve) stenosis; E78.00 Pure hypercholesterolemia, unspecified; I10 Essential (primary) hypertension; E03.9 Hypothyroidism, unspecified; R73.01 Impaired fasting glucose; K21.9 Gastro-esophageal reflux disease without esophagitis; D64.9 Anemia, unspecified; J30.9 Allergic rhinitis, unspecified; E53.8 Deficiency of other specified B group vitamins; R82.81 Pyuria
CPT/HCPCS: 99214

== ENCOUNTER 2024-03-02 06:29 | Outpatient (REF) | payer OTHER, SELFPAY ==
[2022-06-18 07:37] VITALS: BMI 24.5
[2022-08-26 10:44] VITALS: BP 128/66; BP 142/72
[2024-03-02 06:38] LABS: MANUAL DIFF FLAG NO
[2024-03-02 07:44] LABS: Estimated Average Glucose 120 mg/dL; Hemoglobin A1c % 5.8 % (<6.0)
[2024-03-02 07:51] LABS: Basophils Absolute Auto 0.1 X10*3/uL (0.0-0.2); Basophils Percent Auto 0.7 % (0-2); Eosinophils Absolute Auto 0.3 X10*3/uL (0.0-0.4); Eosinophils Percent Auto 3.4 % (0-4); Hematocrit 38.9 % (37.0-47.0); Hemoglobin 12.9 g/dl (12.0-16.0); Imm Gran Abs Auto 0.02 X10*3/uL (0.00-0.03); Imm Gran Pct Auto 0.2 % (0.0-0.4); Lymphocytes Percent Auto 42.8 % (20-40); Mean Corpuscular HGB Conc 33.2 g/dl (31.0-35.0); Mean Corpuscular Hemoglobin 31.4 pg (27.0-33.0); Mean Corpuscular Volume 94.6 fL (80.0-98.0); Mean Platelet Volume 9.5 fL (9.4-12.3); Monocytes Absolute Auto 0.8 X10*3/uL (0.1-1.2); Monocytes Percent Auto 8.7 % (2-11); Neutrophils Absolute Auto 4.1 x10*3/uL (2.0-8.3); Neutrophils Percent Auto 44.2 % (45-73); Platelet Count 318 X10*3/uL (160-400); Red Blood Count 4.11 X10*6/uL (4.20-5.50); Red Cell Distribution Width 13.4 % (11.0-16.0); White Blood Count 9.2 X10*3/uL (4.8-10.8)
[2024-03-02 08:12] LABS: Alanine Aminotransferase 22 U/L (0-31); Albumin Level 3.7 g/dL (3.5-5.0); Alkaline Phosphatase 67 U/L (39-117); Anion Gap 13 (12-20); Aspartate Amino Transferase 26 U/L (5-31); Blood Urea Nitrogen 12 mg/dL (9-16); Calcium 9.3 mg/dL (8.4-10.2); Carbon Dioxide 26 mmol/L (22-29); Chloride 107 mmol/L (96-108); Cholesterol 117 mg/dL (<200); Estimated Glomerular Filt Rate > 60; Glucose Fasting 103 mg/dL (60-99); HDL Cholesterol 55 mg/dL (>40); LDL Cholesterol Calculated 48 mg/dL (<100); Sodium 142 mmol/L (135-145); Total Protein 6.6 g/dL (6.5-8.0); Triglycerides 72 mg/dL (<150)
[2024-03-02 08:19] LABS: Appearance Urine Clear; Color Urine Yellow; Glucose Urine UA Negative (Negative); Leukocyte Esterase Urine Trace (Negative); Nitrite Urine Negative (Negative); PH 5.5 (5.0-9.0); UMIC TRIGGER UACC YES; Urine Blood Negative (Negative); Urine Ketones Negative (Negative); Urine Protein Negative (Neg-Trace)
[2024-03-02 08:25] LABS: Bacteria Urine None Seen (None Seen); Hyaline Casts Urine 0-2 /LPF (0-2); RBC Urine 0-2 /HPF (0-2); Squamous Epithelial Cell Urine 0-2 /HPF (0-2); WBC Urine 0-5 /HPF (0-5)
[2024-03-02 08:32] LABS: Thyroid Stimulating Hormone 0.25 uIU/mL (0.32-4.0); Vitamin D 25-OH Total 35.2 ng/mL (>30)
[2024-03-02 08:36] LABS: Folate 7.7 ng/mL (> or = 4.0); Vitamin B12 1446 pg/mL (200-900)
== END 2024-03-02 06:30 | disposition home or self-care (01) ==
LOC: HO.LAB 06:29
PROVIDERS: PCP Internal Medicine; Visit Provider Internal Medicine
DX: I10 Essential (primary) hypertension (principal); E78.00 Pure hypercholesterolemia, unspecified; R73.01 Impaired fasting glucose; E53.8 Deficiency of other specified B group vitamins; E03.9 Hypothyroidism, unspecified; E55.9 Vitamin D deficiency, unspecified
CPT/HCPCS: 36415; 80053; 80061; 81001; 82306; 82607; 82746; 83036; 84439; 84443; 85025

== ENCOUNTER 2024-03-09 08:38 | Outpatient (AMB) | payer OTHER, SELFPAY ==
[2022-06-18 07:37] VITALS: BMI 24.5
[2022-08-26 10:44] VITALS: BP 128/66; BP 142/72
[2024-03-09 08:42] VITALS: BP 126/84; PULSE 61; O2SAT 97; BMI 25.1
--- NOTE | 2024-03-09 08:42 | MHC.PC.OV ---
Vital Signs 03/09/24 08:42 Height 5 ft 2 in Weight 137 lb BMI 25.1 BP 126/84 Blood Pressure Location Lt brachial Position Sitting Pulse 61 Pulse Source Pulse Oximeter Pulse Oximetry (%) 97 Oxygen Delivery Method Room Air Intake Visit Reasons: CAD, hyperlipidemia [employer] System Administrator Required: No Allergies Penicillins [PENICILLINS] Allergy (Intermediate, Verified 03/09/24 09:15) HIVES codeine [CODEINE] Adverse Reaction (Intermediate, Verified 03/09/24 09:15) CONFUSION Medication List - Last Reconciled 03/09/24 by Jermain Lozano MD albuterol sulfate 90 mcg/actuation 2 puffs inhalation Q4-6H PRN aspirin 81 mg PO DAILY atorvastatin 80 mg PO DAILY ezetimibe (Zetia) 10 mg PO DAILY levothyroxine 75 mcg PO QAM 90 days lisinopril 5 mg PO DAILY lorazepam 0.5 mg PO BID PRN 30 days metoprolol succinate ER 25 mg PO DAILY 90 days omeprazole 40 mg PO DAILY 90 days Tobacco use date assessed: 03/09/24 Fall risk assessment: No Falls in past year Last assessed Fall Risk: 03/09/24 Dental Screening Dental Screen Date: 09/30/23 HPI CAD, hyperlipidemia HPI Details Patient comes in today for her follow up visit States that she feels okay except for some recurrent scabs/sores inside her nostrils - states that these have been recurring for a while now and she has tried everything she can think of, including saline nasal sprays (which cause burning) States that the sores can get painful often She denies any nasal congestion or sore throat She denies any headaches or dizziness Denies any chest pains, no increased SOB No nausea/vomiting, no abdominal pain No change in bowel habits noted Needs her Lorazepam and a few other Rx refilled Had her follow up labs done last week - to discuss her results [facility] Medical History Aortic stenosis 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 Benign essential hypertension Overweight (BMI 25.0-29.9) Anxiety Insomnia Peripheral neuropathy Vitamin B12 deficiency Impaired fasting glucose Cardiac murmur Anemia GERD without esophagitis Allergic rhinitis COPD (chronic obstructive pulmonary disease) Acquired hypothyroidism Pure hypercholesterolemia Surgical History S/P coronary artery stent placement (~07/2021) Family History Father Medical history unknown Mother Medical history unknown Social History Housing: House Alcohol intake: never Patient Tobacco Use Status: Current everyday Tobacco user Tobacco use type: Cigarette Cigarette Packs Per Day: 0.10 Cigarettes Per Day: 2 Years Smoked: 50+ e-Cigarette/Vaping Use: Never Used Second Hand Smoke Exposure: Yes service: No Current occupational status: retired Cognitive needs: No Hearing needs: No Vision needs: Yes (Glasses) Questionnaire PHQ-9 Over the last 2 weeks, how often have you been bothered by any of the following problems? 1. Little interest or pleasure in doing things: not at all 2. Feeling down, depressed, or hopeless: not at all 3. Trouble falling or staying asleep, or sleeping too much: not at all 4. Feeling tired or having little energy: not at all 5. Poor appetite or overeating: not at all 6. Feeling bad about yourself - or that you are a failure or have let yourself or your family down: not at all 7. Trouble concentrating on things, such as reading the newspaper or watching television: not at all 8. Moving or speaking so slowly that other people could have noticed. Or the opposite - being so fidgety or restless that you have been moving around a lot more than usual: not at all 9. Thoughts that you would be better off or of hurting yourself in some way: not at all Total score: 0 Depression Screening Interpretation: Negative Depression Screening Done: Yes 13717 - PHQ-9 Billing: Yes Source: Developed by Drs. Durga Mc, Minerva Sparks, Charlie Joya and colleagues, with an educational gail from [employer]. Thrive Questionnaire Date Thrive assessed: 03/09/24 I am a: Patient What is your living situation today?: I have a steady place to live Within the past 12 months, did the food you bought not last and you didn't have the money to get more?: Never true Within the past 12 months, did you worry whether your food would run out before you got money to buy more?: Never true Do you have trouble paying for medicines?: No Do you have trouble getting transportation to medical appointments?: No Do you have trouble paying your heating and electricity bill?: No Do you have trouble taking care of your child, family member or friend?: No Do you have trouble with day-to-day activities such as bathing, preparing meals, shopping, managing finances, etc.?: No Are you currently unemployed and looking for a job?: No Are you interested in more education?: No Please select the resources that you would like help with: None Currently or been in a relationship where the following occur: no concerns reported THRIVE Score: 0 AUDIT C Alcohol Use Questionnaire (AUDIT-C) 1. How often do you have a drink containing alcohol?: Never 3. How often do you have six or more drinks on one occasion?: Never Total Score: 0 Score Reviewed/Action Taken: Yes KEIRY-7 AMB Questionnaire KEIRY-7 Date KEIRY - 7 assessed: 03/09/24 Feeling nervous, anxious, or on edge: 0 = Not at all Not being able to stop or control worryin = Not at all Worrying too much about different things: 0 = Not at all Trouble relaxin = Not at all Being so restless that it is hard to sit still: 0 = Not at all Becoming easily annoyed or irritable: 0 = Not at all Feeling afraid as if something awful might happen: 0 = Not at all Total KEIRY-7 score (0-4 normal; 5-9 mild; 10-14 moderate; 15-21 severe): 0 Source: Developed by Drs. Durga Mc, Minerva Sparks, Charlie Joya and colleagues, with an educational gail from [employer]. Review of Systems Const Reports difficulty sleeping, Denies fatigue, Denies fever(s) and Denies headache(s) ENT Details: (+) recurrent nasal sores Denies dysphagia, Denies dizziness, Denies otalgia, Denies headache(s), Denies neck pain, Denies odynophagia and Denies sore throat Card Denies chest pain, Denies palpitations and Reports dyspnea on exertion (occasionally) Resp Denies cough, Reports dyspnea on exertion (occasionally) and Denies wheezing GI Denies abdominal pain, Denies constipation, Denies dysphagia, Denies heartburn, Denies diarrhea, Denies nausea, Denies odynophagia and Denies vomiting Denies difficulty voiding, Denies nocturia, Denies dysuria and Denies urinary urgency Musc Denies back pain, Reports arthralgias (right shoulder, on and off) and Denies neck pain Skin/Breast Denies rash Neuro Denies dizziness and Denies headache(s) Psych Reports anxiety Endo Denies fatigue and Denies palpitations Aller/Immun Denies wheezing Physical exam (Primary Care) Vital Signs: Last Vital Signs Pulse 61 03/09/24 08:42 BP 126/84 03/09/24 08:42 Pulse Ox 97 03/09/24 08:42 Oxygen Delivery Method Room Air 03/09/24 08:42 BMI result Body Mass Index 25.1 Tobacco/Smoking Status: Tobacco use Status Tobacco use date assessed 03/09/24 03/09/24 08:43 Patient Tobacco Use Status Current everyday Tobacco 03/09/24 08:43 Tobacco use type Cigarette 03/09/24 08:43 e-Cigarette/Vaping Use Never Used 03/09/24 08:43 PHQ-9: PHQ-9 Score PHQ-9: Total score 0 03/09/24 08:43 Depression Screening Interpretation: Negative Thrive Assessment: Date of Thrive Assessment Date Thrive assessed 03/09/24 03/09/24 08:43 Currently or been in a relationship where the following occur: no concerns reported Const General: no acute distress and alert HENMT Ears: TM's normal bilaterally and EAC's normal Throat: Yes posterior oropharynx normal and Yes tonsils normal (no TP congestion noted) Neck Neck: Yes no lymphadenopathy and Yes supple Thyroid: Thyroid normal Resp Auscultation: clear to auscultation bilaterally, no rales, no wheezes and diminished lung sounds (slightly) bilateral Cardio Rate: regular rate Rhythm: regular rhythm Heart sounds: Murmur heart sound present systolic III/ GI Palpation (GI): Soft to palpation and nontender Auscultation: normal bowel sounds General: Yes no CVA tenderness Back/Spine/Pelvis Back: no CVA tenderness Skin Rashes: no rashes Extrem General: Yes no clubbing, cyanosis or edema Results Reviewed Results Reviewed: Laboratory Tests 03/02/24 03/02/24 06:38 07:17 WBC 9.2 Hgb 12.9 Hct 38.9 Plt Count 318 Sodium 142 Potassium 4.0 Creatinine 0.85 Estimated GFR > 60 Fasting Glucose 103 H Hemoglobin A1c % 5.8 AST 26 ALT 22 Triglycerides 72 Cholesterol 117 LDL Cholesterol, Calc 48 HDL Cholesterol 55 Vitamin B12 1446 H 25-OH Vitamin D Total 35.2 TSH 0.25 L Free T4 1.10 Ur Specific [place] 1.010 Urine Protein Negative Urine Glucose (UA) Negative Urine Blood Negative Urine Nitrite Negative Ur Leukocyte Esterase Trace H Assessment and Plan Assessment & Plan (1) CAD (coronary artery disease): Comment: S/P Inferior STEMI in 07/2021 - had PCI x 2 Code(s): I25.10 - Atherosclerotic heart disease of [place] coronary artery without angina pectoris Qualifiers: Coronary Disease-Associated Artery/Lesion type: [place] artery [place] vs. transplanted heart: [place] heart Associated angina: without angina Qualified Code(s): I25.10 - Atherosclerotic heart disease of [place] coronary artery without angina pectoris Plan: Patient remains mostly asymptomatic from a cardiac standpoint Continue Aspirin 81 mg QD and Metoprolol ER 25 mg QD; her Brilinta 90 mg QD was discontinued by cardiology 1 year S/P PCI Follow up with cardiology as scheduled (2) Aortic stenosis: Code(s): I35.0 - Nonrheumatic aortic (valve) stenosis Qualifiers: Cardiac valve disease etiology: nonrheumatic Qualified Code(s): I35.0 - Nonrheumatic aortic (valve) stenosis Plan: Repeat echocardiogram done in June 2023 showed no significant change from a year ago - the left ventricular systolic function is normal. The visually estimated ejection fraction is between 55-60%. Findings suggest (+) grade II (moderate) diastolic dysfunction: there is moderate aortic valve stenosis and mild mitral annular calcification. Per cardiology, still no intervention is indicated at this time as patient does not appear to have any symptoms related to She has been advised to continue aggressive risk factor modification and reminded to call for evaluation/examination as soon as she starts experiencing -related symptoms, particularly increasing FOSTER and fatigue Follow up with cardiology as scheduled (3) Pure hypercholesterolemia: Code(s): E78.00 - Pure hypercholesterolemia, unspecified Plan: Results of her labs done last week reviewed and discussed with patient Reinforced low cholesterol diet Continue Atorvastatin 80 mg QD and Ezetimibe 10 mg QD Will recheck her labs and fasting lipids in 6 months for follow up (4) Benign essential hypertension: Code(s): I10 - Essential (primary) hypertension Plan: Reinforced low sodium diet - goal is systolic BP of at least 120 mm or less Continue Lisinopril 5 mg QD and Metoprolol ER 25 mg QD (5) Acquired hypothyroidism: Code(s): E03.9 - Hypothyroidism, unspecified Plan: Free T4 was again normal on her recent labs; TSH is still suppressed; patient appears clinically euthyroid Continue Levothyroxine 75 mcg QD Will continue to monitor her TFTs regularly (6) Impaired fasting glucose: Code(s): R73.01 - Impaired fasting glucose Plan: Her HgbA1c remains normal at 5.7% on her recent labs; FBS was still slightly elevated at 103 mg/dl Reinforced low calorie diet Will recheck her HgbA1c and FBS in 6 months for follow up (7) COPD (chronic obstructive pulmonary disease): Code(s): J44.9 - Chronic obstructive pulmonary disease, unspecified Qualifiers: COPD type: unspecified COPD Qualified Code(s): J44.9 - Chronic obstructive pulmonary disease, unspecified Plan: Stable lately with no acute flare ups Has her Albuterol inhaler but states that she has not felt the need to use her inhaler for a while now (8) GERD without esophagitis: Comment: EGD done in July [address] Fuentes - GE junction appeared irregular and biopsy done revealed chronic inflammatory changes consistent with GERD Code(s): K21.9 - Gastro-esophageal reflux disease without esophagitis Plan: Dietary restrictions reinforced Continue Omeprazole 40 mg QD (9) Anemia: Code(s): D64.9 - Anemia, unspecified Qualifiers: Anemia type: unspecified type Qualified Code(s): D64.9 - Anemia, unspecified Plan: Corrected - H/H has remained normal on her recent labs Will continue to monitor her CBC regularly (10) Allergic rhinitis: Code(s): J30.9 - Allergic rhinitis, unspecified Qualifiers: Allergic rhinitis trigger: unspecified Allergic rhinitis seasonality: unspecified Qualified Code(s): J30.9 - Allergic rhinitis, unspecified Plan: Follow up with ENT as scheduled Has been advised to continue using her saline nasal gel regularly Was being considered for some procedure for her nasal septum but she ended up with an WI subsequently, so this has been held up since (11) Sore in nose: Code(s): J34.89 - Other specified disorders of nose and nasal sinuses Plan: Will try her empirically on Mupirocin 2% ointment and instructed her to apply this into both of her nostrils with a Q-tip BID for at least 10 days Discussed that it is possible that she may have Staph colonization of her nasal mucosa and these may be what is causing her recurrent nasal sores (12) Vitamin B12 deficiency: Code(s): E53.8 - Deficiency of other specified B group vitamins Plan: Her B12 level is again elevated on her recent labs - have advised her to try cutting back on her oral Vitamin B12 tablets to just twice a week instead of every other day Will recheck her B12 level in 6 months for follow up (13) Insomnia: Code(s): G47.00 - Insomnia, unspecified Qualifiers: Insomnia type: unspecified Qualified Code(s): G47.00 - Insomnia, unspecified Plan: Sleep hygiene reinforced Have advised patient that she can try some OTC Melatonin for sleep - reassured that Melatonin have very little side effects and are not habit-forming and should be safe for her to take (14) Anxiety: Code(s): F41.9 - Anxiety disorder, unspecified Plan: Continue Lorazepam 0.5 mg BID PRN - Rx refilled Plan Follow up in 6 months Orders: Orders Complete Blood Count Auto Diff 6 Months D64.9 - Anemia, unspecified Lipid Panel 6 Months E78.00 - Pure hypercholesterolemia, unspecified Vitamin B12 and Folate 6 Months E53.8 - Deficiency of other specified B group vitamins Vitamin D 25-OH Total 6 Months E55.9 - Vitamin D deficiency, unspecified Free T4 (Free Thyroxine) 6 Months E03.9 - Hypothyroidism, unspecified Thyroid Stimulating Hormone 6 Months E03.9 - Hypothyroidism, unspecified Comprehensive [place]. Panel Fast 6 Months E78.00 - Pure hypercholesterolemia, unspecified Medications: Changed From mupirocin 2% topical To mupirocin 2% 1 appl topical BID 10 days 50 grams 0RF Refilled lorazepam 0.5 mg PO BID 30 days PRN 60 tabs 0RF anxiety levothyroxine 75 mcg PO QAM 90 days 90 tabs 1RF Discontinued albuterol sulfate 90 mcg/actuation Discontinued Reason: Patient no longer taking 2 puffs inhalation Q4-6H PRN 8.5 grams 0RF shortness of breath or wheezing Coding Level of Care Code Est Pt Level 4 (07194) Complex EM visit Add On G2211 Diagnoses Coronary artery disease involving [place] coronary artery of [place] heart without angina pectoris I25.10 Coronary Disease-Associated Artery/Lesion type: [place] artery [place] vs. transplanted heart: [place] heart Associated angina: without angina Nonrheumatic aortic valve stenosis I35.0 Cardiac valve disease etiology: nonrheumatic Pure hypercholesterolemia E78.00 Benign essential hypertension I10 Acquired hypothyroidism E03.9 Impaired fasting glucose R73.01 Chronic obstructive pulmonary disease, unspecified COPD type J44.9 COPD type: unspecified COPD GERD without esophagitis K21.9 Anemia, unspecified type D64.9 Anemia type: unspecified type Allergic rhinitis, unspecified seasonality, unspecified trigger J30.9 Allergic rhinitis trigger: unspecified Allergic rhinitis seasonality: unspecified Sore in nose J34.89 Vitamin B12 deficiency E53.8 Insomnia, unspecified type G47.00 Insomnia type: unspecified Anxiety F41.9
== END 2024-03-09 09:35 | disposition home or self-care (01) ==
PROVIDERS: PCP Internal Medicine; Visit Provider Internal Medicine
DX: I25.10 Atherosclerotic heart disease of native coronary artery without angina pectoris (principal); I35.0 Nonrheumatic aortic (valve) stenosis; E78.00 Pure hypercholesterolemia, unspecified; I10 Essential (primary) hypertension; E03.9 Hypothyroidism, unspecified; R73.01 Impaired fasting glucose; J44.9 Chronic obstructive pulmonary disease, unspecified; K21.9 Gastro-esophageal reflux disease without esophagitis; D64.9 Anemia, unspecified; J30.9 Allergic rhinitis, unspecified; J34.89 Other specified disorders of nose and nasal sinuses; E53.8 Deficiency of other specified B group vitamins
CPT/HCPCS: 99214; G2211

== ENCOUNTER → 2024-07-18 07:38 | Outpatient (REF) | payer OTHER, SELFPAY ==
[2022-06-18 07:37] VITALS: BMI 24.5
[2022-08-26 10:44] VITALS: BP 128/66; BP 142/72
--- NOTE | 2024-07-18 07:40 | CA_ITS ---
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 The calculated ejection fraction is 65% by biplane method. - Evidence suggests grade II (moderate) diastolic dysfunction. - There is moderate aortic valve stenosis. Findings Left Ventricle Normal left ventricular cavity size. There is normal left ventricular wall thickness. The left ventricular systolic function is normal. The calculated ejection fraction is 65% by biplane method. There is no evidence of regional wall motion abnormalities. Evidence suggests grade II (moderate) diastolic dysfunction. Right Ventricle Normal right ventricular cavity size and systolic function. Atria Both atria are normal in size. Aortic Valve There is moderate calcification of the aortic valve. There is moderate aortic valve stenosis. There is no aortic valve regurgitation. Dimensionless index 0.37. Stroke volume index 41 mL/m2. Mitral Valve There is mild mitral annular calcification. There is no mitral valve regurgitation. There is no mitral valve stenosis. Pulmonic Valve The pulmonic valve is likely normal. Tricuspid Valve There is trace tricuspid valve regurgitation. There is no evidence of pulmonary hypertension. Great Vessels The asc aorta is normal in size. Small plaque is seen in the sino tubular ridge. Venous The inferior vena cava is normal in size and collapses greater than 50% with inspiration. Pericardium/Pleural There is no evidence of pericardial effusion. Prior Study Comparison No significant change compared to prior study dated: 06/29/2023. Measurements 2D Linear Measurements IVSd: 0.94 0.6-0.9/0.6-1.0 cm LVIDd: 4.95 3.9-5.3/4.2-5.9 cm LVIDd Index: 3.02 2.4-3.2/2.2-3.1 cm/m2 LVIDs: 2.71 2.0-3.6 cm LVPWd: 0.99 0.7-1.1 cm LA Diam: 2.80 2.7-3.8/3.0-4.0 cm LAIDs Index: 1.71 1.5-2.3 cm/m2 LV Mass: 212.70 67-162/88-224 g LV Mass Index: 129.69 43-95/49-115 g/m2 LVOT Diam: 1.90 3.0+(-)1.3 cm 2D Systolic Function EF 4C: 67.50 >55% EF 2C: 62.30 >55% EF BiP: 64.70 >55% Mitral Valve MV Pk E: 0.99 MV PK A: 0.75 MV Decel Time: 183.00 E/A: 1.30 E'Lateral: 7.51 E'Medial: 5.33 E/E' Med: 18.60 E/E' Lat: 13.20 PHT: 54.00 MVA PHT: 4.07 Decel [place]: 5.44 Aortic Valve AoV Pk Trell: 2.67 AoV Mn Trell: 1.79 AoV VTI: 0.64 AoV Pk Grad: 29.00 Aov Mn Grad: 15.00 MATILDE Cont.VTI: 1.06 LVOT LVOT Pk Trell: 0.98 LVOT Mn Trell: 0.66 LVOT VTI: 0.24 LVOT Pk Grad: 4.00 LVOT Mn Grad: 2.00 LVOT Diam: 1.90 LVOT Area: 2.84 Diastolic Function MV Pk E: 0.99 MV Pk A: 0.75 E/A: 1.30 E'Medial: 5.33 E/E' Med: 18.60 E' Laterial: 7.51 E/E' Lat: 13.20 Right Ventricle TAPSE (mm): 26.50 TVS' Trell: 11.80 Tricuspid Valve TR Pk Trell: 2.44 TR Pk Grad: 24.00 RA Press: 3.00 RVSP: 27.00 Great Vessels Aorta Sinus of Valsalva: 2.70 2.0-3.5 cm Ao Asc: 3.10 2.1-3.4 cm Pulmonary Veins Pulm Vein S/D 0.90 Pulmonary Valve PV Pk Trell: 0.88 Peak PV Grad: 3.00 Updated in Other Vendor System with Status of Final Lawrence Milan MD electronically signed on 07/18/2024 12:52:38 PM with status of Final
== END ==
LOC: HO.CARD 07:38
PROVIDERS: PCP Internal Medicine; Visit Provider Internal Medicine Cardiovascular Disease
DX: I35.0 Nonrheumatic aortic (valve) stenosis (principal)
CPT/HCPCS: 93306

== ENCOUNTER → 2024-07-18 07:40 | Outpatient (BNV) | payer OTHER, SELFPAY ==
[2022-06-18 07:37] VITALS: BMI 24.5
[2022-08-26 10:44] VITALS: BP 128/66; BP 142/72
== END ==
PROVIDERS: PCP Internal Medicine; Visit Provider Internal Medicine
DX: I35.0 Nonrheumatic aortic (valve) stenosis (principal); I35.8 Other nonrheumatic aortic valve disorders; I34.81 Nonrheumatic mitral (valve) annulus calcification
CPT/HCPCS: 93306

== ENCOUNTER 2024-08-22 06:14 | Outpatient (REF) | payer OTHER, SELFPAY ==
[2022-06-18 07:37] VITALS: BMI 24.5
[2022-08-26 10:44] VITALS: BP 128/66; BP 142/72
[2024-08-22 06:39] LABS: MANUAL DIFF FLAG NO
[2024-08-22 07:23] LABS: Basophils Absolute Auto 0.1 X10*3/uL (0.0-0.2); Basophils Percent Auto 0.8 % (0-2); Eosinophils Absolute Auto 0.2 X10*3/uL (0.0-0.4); Eosinophils Percent Auto 3.2 % (0-4); Hematocrit 40.2 % (37.0-47.0); Hemoglobin 13.5 g/dl (12.0-16.0); Imm Gran Abs Auto 0.02 X10*3/uL (0.00-0.03); Imm Gran Pct Auto 0.3 % (0.0-0.4); Lymphocytes Absolute Auto 3.3 X10*3/uL (1.2-4.9); Lymphocytes Percent Auto 45.1 % (20-40); Mean Corpuscular HGB Conc 33.6 g/dl (31.0-35.0); Mean Corpuscular Hemoglobin 31.6 pg (27.0-33.0); Mean Corpuscular Volume 94.1 fL (80.0-98.0); Mean Platelet Volume 9.5 fL (9.4-12.3); Monocytes Absolute Auto 0.7 X10*3/uL (0.1-1.2); Monocytes Percent Auto 9.5 % (2-11); Neutrophils Percent Auto 41.1 % (45-73); Platelet Count 312 X10*3/uL (160-400); Red Blood Count 4.27 X10*6/uL (4.20-5.50); Red Cell Distribution Width 13.1 % (11.0-16.0); White Blood Count 7.4 X10*3/uL (4.8-10.8)
[2024-08-22 07:30] LABS: Appearance Urine Clear; Color Urine Yellow; Glucose Urine UA Negative (Negative); Leukocyte Esterase Urine Moderate (2+) (Negative); Nitrite Urine Negative (Negative); UMIC TRIGGER UACC YES; Urine Blood Negative (Negative); Urine Ketones Negative (Negative); Urine Protein Negative (Neg-Trace)
[2024-08-22 07:34] LABS: Bacteria Urine None Seen (None Seen); Hyaline Casts Urine 0-2 /LPF (0-2); RBC Urine 0-2 /HPF (0-2); Squamous Epithelial Cell Urine 0-2 /HPF (0-2); UACC Culture Trigger YES; WBC Urine 21-50 /HPF (0-5)
[2024-08-22 08:06] LABS: Alanine Aminotransferase 26 U/L (0-31); Alkaline Phosphatase 65 U/L (39-117); Anion Gap 14 (12-20); Aspartate Amino Transferase 29 U/L (5-31); Bilirubin Total 1.3 mg/dL (0.0-1.0); Blood Urea Nitrogen 16 mg/dL (9-16); Carbon Dioxide 27 mmol/L (22-29); Chloride 104 mmol/L (96-108); Cholesterol 139 mg/dL (<200); Estimated Glomerular Filt Rate > 60; Glucose Fasting 122 mg/dL (60-99); HDL Cholesterol 56 mg/dL (>40); LDL Cholesterol Calculated 67 mg/dL (<100); Potassium 4.5 mmol/L (3.3-5.1); Sodium 140 mmol/L (135-145); Triglycerides 81 mg/dL (<150)
[2024-08-22 08:28] LABS: Free T4 (Free Thyroxine) 1.37 ng/dL (0.71-1.85); Thyroid Stimulating Hormone 0.28 uIU/mL (0.32-4.0); Vitamin D 25-OH Total 45.5 ng/mL (>30)
[2024-08-22 08:32] LABS: Folate 9.6 ng/mL (> or = 4.0); Vitamin B12 698 pg/mL (200-900)
== END 2024-08-22 06:15 | disposition home or self-care (01) ==
LOC: HO.LAB 06:14
PROVIDERS: PCP Internal Medicine; Visit Provider Internal Medicine
DX: D64.9 Anemia, unspecified (principal); E78.00 Pure hypercholesterolemia, unspecified; E53.8 Deficiency of other specified B group vitamins; E55.9 Vitamin D deficiency, unspecified; E03.9 Hypothyroidism, unspecified; R30.0 Dysuria
CPT/HCPCS: 36415; 80053; 80061; 81001; 82306; 82607; 82746; 84439; 84443; 85025; 87086

== ENCOUNTER 2024-08-29 08:26 | Outpatient (AMB) | payer OTHER, SELFPAY ==
[2022-06-18 07:37] VITALS: BMI 24.5
[2022-08-26 10:44] VITALS: BP 128/66; BP 142/72
[2024-08-29 08:41] VITALS: BP 110/74; PULSE 66; BMI 25.0
--- NOTE | 2024-08-29 08:41 | A.OFFVIS_ITS ---
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 She has no new cardiac symptoms. She denies any chest pain, shortness of breath, orthopnea, PND, lightheadedness. Takes all her medications. Denies prolonged palpitation irregular heartbeat. Denies any syncope. Remains active and functional. Unfortunately continues to smoke but has cut down quite a bit. Denies any claudication. Recent echocardiogram showed preserved LV ejection fraction with moderate aortic stenosis which has remained stable. 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 Benign essential hypertension Overweight (BMI 25.0-29.9) Anxiety Insomnia Peripheral neuropathy Vitamin B12 deficiency Impaired fasting glucose Cardiac murmur Anemia GERD without esophagitis Allergic rhinitis COPD (chronic obstructive pulmonary disease) Acquired hypothyroidism Pure hypercholesterolemia Surgical History S/P coronary artery stent placement (~07/2021) Family History Father Medical history unknown Mother Medical history unknown Social History Housing: House Alcohol intake: never Patient Tobacco Use Status: Current everyday Tobacco user Tobacco use type: Cigarette Cigarette Packs Per Day: 0.10 Cigarettes Per Day: 2 Years Smoked: 50+ e-Cigarette/Vaping Use: Never Used Second Hand Smoke Exposure: Yes service: No Current occupational status: retired Cognitive needs: No Hearing needs: No Vision needs: Yes (Glasses) Review of Systems Const Denies chills, Denies fatigue, Denies fever(s), Denies frequent falls, Denies weakness, Denies weight gain and Denies weight loss ENT Denies dizziness Card Denies chest pain, Denies leg edema, Denies lightheadedness, Denies palpitations, Denies dyspnea, Denies dyspnea on exertion, Denies orthopnea and Denies other (loss of consciousness) Resp Denies cough, Denies dyspnea and Denies dyspnea on exertion GI Denies hematochezia and Denies change in stool character Musc Denies abnormal gait, Denies muscle weakness, Denies numbness, Denies radiating pain into limb and Denies tingling Neuro Denies abnormal gait, Denies dizziness, Denies frequent falls, Denies numbness, Denies tingling and Denies weakness Endo Denies fatigue and Denies palpitations Physical Exam Vital Signs: Last Vital Signs Pulse 66 08/29/24 08:41 BP 110/74 08/29/24 08:41 BMI result Body Mass Index 25.0 Const General: cooperative, comfortable, no acute distress, alert, awake and anxious Nutritional Appearance: overweight Orientation/consciousness: patient oriented x3 Limitations: no limitations Neck Neck: Yes trachea midline, Yes supple and Yes no JVD Chest Chest palpation & inspection: normal inspection of the chest Resp Effort & Inspection: normal respiratory effort Auscultation: clear to auscultation bilaterally Cardio Jugular venous distension: no JVD Palpation: normal PMI Rate: regular rate Rhythm: regular rhythm Heart sounds: S1 normal heart sound present, S2 normal heart sound present, no click, no gallops and Murmur heart sound present systolic mid, decrescendo, crescendo and harsh Peripheral pulses: Peripheral pulses 2+ throughout GI Auscultation: normal bowel sounds Skin General skin exam: no rashes or lesions noted Neuro General: patient oriented x3 and no focal motor deficits Extrem General: Yes no clubbing, cyanosis or edema Psych Appearance: grossly normal Affect: Anxious affect present Office Procedures EKG Details: EKG shows normal sinus rhythm with normal EKG [id number], Complete Assessment & Plan Assessment & Plan (1) CAD (coronary artery disease): Comment: S/P Inferior STEMI in 07/2021 - had PCI x 2 Code(s): I25.10 - Atherosclerotic heart disease of [place] coronary artery without angina pectoris Category: Medical Qualifiers: Coronary Disease-Associated Artery/Lesion type: [place] artery [place] vs. transplanted heart: [place] heart Associated angina: without angina Qualified Code(s): I25.10 - Atherosclerotic heart disease of [place] coronary artery without angina pectoris Plan: CAD status post PCI to RCA for inferior STEMI in 2020. Doing well at current point time. Continue low-dose aspirin therapy for life. Continue aggressive vascular risk factor modification that includes complete smoking cessation this was discussed with her. Continue dual therapy with ezetimibe and atorvastatin with LDL well optimized at 67 mg/dL. Continue aggressive blood pressure control. She understands agrees. Advised to call me with any new symptoms. (2) Aortic stenosis: Code(s): I35.0 - Nonrheumatic aortic (valve) stenosis Category: Medical Qualifiers: Cardiac valve disease etiology: nonrheumatic Qualified Code(s): I35.0 - Nonrheumatic aortic (valve) stenosis Plan: Aortic stenosis which remains moderate. Continue aggressive risk factor modification above. Cardinal symptoms associated with aortic stenosis were discussed. No interventions required at this point time. Follow-up echocardiogram in 1 year's time. Will follow up in the clinic in 1 year's time, sooner p.r.n.. Thank me to partake in her care Orders: Orders CA echo transthoracic complete 1 Year I35.0 - Nonrheumatic aortic (valve) stenosis Medications: Refilled ezetimibe (Zetia) 10 mg PO DAILY 90 tabs 3RF Coding Level of Care Code Est Pt Level 4 (09342) Complex EM visit Add On G2211 Diagnoses Coronary artery disease involving [place] coronary artery of [place] heart without angina pectoris I25.10 Coronary Disease-Associated Artery/Lesion type: [place] artery [place] vs. transplanted heart: [place] heart Associated angina: without angina Nonrheumatic aortic valve stenosis I35.0 Cardiac valve disease etiology: nonrheumatic CPT Codes EKG - CPT: 75179-[id number], Complete ([id number])
== END 2024-08-29 09:06 | disposition home or self-care (01) ==
PROVIDERS: PCP Internal Medicine; Visit Provider Internal Medicine Cardiovascular Disease
DX: I25.10 Atherosclerotic heart disease of native coronary artery without angina pectoris (principal); I35.0 Nonrheumatic aortic (valve) stenosis
CPT/HCPCS: 93010; 99214; G2211

== ENCOUNTER → 2024-08-29 08:26 | Outpatient (BNVA) | payer OTHER, SELFPAY ==
[2022-06-18 07:37] VITALS: BMI 24.5
[2022-08-26 10:44] VITALS: BP 128/66; BP 142/72
== END ==
PROVIDERS: PCP Internal Medicine; Visit Provider Internal Medicine Cardiovascular Disease
DX: I25.10 Atherosclerotic heart disease of native coronary artery without angina pectoris (principal); I35.0 Nonrheumatic aortic (valve) stenosis; F17.210 Nicotine dependence, cigarettes, uncomplicated
CPT/HCPCS: 93005; 99212

== ENCOUNTER 2024-09-08 09:13 | Outpatient (AMB) | payer OTHER, SELFPAY ==
[2022-06-18 07:37] VITALS: BMI 24.5
[2022-08-26 10:44] VITALS: BP 128/66; BP 142/72
[2024-09-08 09:17] VITALS: BP 124/82; PULSE 76; O2SAT 98; BMI 24.9
--- NOTE | 2024-09-08 09:17 | MHC.PC.OV ---
Vital Signs 09/08/24 09:17 Height 5 ft 2 in Weight 136 lb 6 oz BMI 24.9 BP 124/82 Blood Pressure Location Lt brachial Position Sitting Pulse 76 Pulse Source Pulse Oximeter Pulse Oximetry (%) 98 Oxygen Delivery Method Room Air Intake Visit Reasons: 6 Month F/U Neurosurgical Nurse Practitioner Required: No Accompanied by: Self / Same As Patient Allergies Penicillins [PENICILLINS] Allergy (Intermediate, Verified 09/08/24 09:40) HIVES codeine [CODEINE] Adverse Reaction (Intermediate, Verified 09/08/24 09:40) CONFUSION Medication List - Last Reconciled 09/08/24 by Jermain Lozano MD aspirin 81 mg PO DAILY atorvastatin 80 mg PO DAILY ezetimibe (Zetia) 10 mg PO DAILY levothyroxine 75 mcg PO QAM 90 days lisinopril 5 mg PO DAILY lorazepam 0.5 mg PO BID PRN 30 days metoprolol succinate ER 25 mg PO DAILY 90 days mupirocin 2% 1 appl topical BID 10 days omeprazole 40 mg PO DAILY 90 days Tobacco use date assessed: 09/08/24 Fall risk assessment: No Falls in past year Last assessed Fall Risk: 09/08/24 Dental Screening Dental Screen Date: 09/08/24 Did you have a dental visit in the last 12 months?: No Did you have a dental problem in the last 6 months where you did not have access to dental care?: No Was dental information given to patient?: No HPI 6 Month F/U HPI Details Patient comes in today for her follow-up visit States that she has been experiencing increased anxiety again lately - states that this has been going on for a while now She has noticed that her anxiety tends to increase significantly during the holidays and she feels that overall, her anxiety has gotten worse over the past few years States that she continues to have trouble sleeping at night and thinks that her anxiety has a lot to do with this She recalled that I have recommended are taking some maintenance medication for her anxiety in the past and states that she would now like to try to control her anxiety better She denies any headaches or dizziness Denies any chest pains, still has some shortness of breath on exertion but does not feel that this has gotten any worse from before She was recently seen by Dr. 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 Benign essential hypertension Anxiety Insomnia Peripheral neuropathy Vitamin B12 deficiency Impaired fasting glucose Cardiac murmur Anemia GERD without esophagitis Allergic rhinitis COPD (chronic obstructive pulmonary disease) Acquired hypothyroidism Pure hypercholesterolemia Surgical History S/P coronary artery stent placement (~07/2021) Family History Father Medical history unknown Mother Medical history unknown Social History Housing: House Alcohol intake: never Patient Tobacco Use Status: Current everyday Tobacco user Tobacco use type: Cigarette Cigarette Packs Per Day: 0.10 Cigarettes Per Day: 2 Years Smoked: 50+ e-Cigarette/Vaping Use: Never Used Second Hand Smoke Exposure: Yes service: No Current occupational status: retired Current occupational exposures/hazards: No Cognitive needs: No Hearing needs: No Vision needs: Yes (Glasses) Questionnaire PHQ-9 Over the last 2 weeks, how often have you been bothered by any of the following problems? 1. Little interest or pleasure in doing things: not at all 2. Feeling down, depressed, or hopeless: not at all 3. Trouble falling or staying asleep, or sleeping too much: not at all 4. Feeling tired or having little energy: not at all 5. Poor appetite or overeating: not at all 6. Feeling bad about yourself - or that you are a failure or have let yourself or your family down: not at all 7. Trouble concentrating on things, such as reading the newspaper or watching television: not at all 8. Moving or speaking so slowly that other people could have noticed. Or the opposite - being so fidgety or restless that you have been moving around a lot more than usual: not at all 9. Thoughts that you would be better off or of hurting yourself in some way: not at all Total score: 0 Depression Screening Interpretation: Negative Depression Screening Done: Yes 77275 - PHQ-9 Billing: Yes Source: Developed by Drs. Dugra Mc, Minerva Sparks, Charlie Joya and colleagues, with an educational gail from [employer]. Thrive Questionnaire Date Thrive assessed: 09/08/24 I am a: Patient What is your living situation today?: I have a steady place to live Within the past 12 months, did the food you bought not last and you didn't have the money to get more?: Never true Within the past 12 months, did you worry whether your food would run out before you got money to buy more?: Never true Do you have trouble paying for medicines?: No Do you have trouble getting transportation to medical appointments?: No Do you have trouble paying your heating and electricity bill?: No Do you have trouble taking care of your child, family member or friend?: No Do you have trouble with day-to-day activities such as bathing, preparing meals, shopping, managing finances, etc.?: No Are you currently unemployed and looking for a job?: No Are you interested in more education?: No Please select the resources that you would like help with: None Currently or been in a relationship where the following occur: No concerns reported THRIVE Score: 0 AUDIT C Alcohol Use Questionnaire (AUDIT-C) 1. How often do you have a drink containing alcohol?: Never 3. How often do you have six or more drinks on one occasion?: Never Total Score: 0 Score Reviewed/Action Taken: Yes KEIRY-7 AMB Questionnaire KEIRY-7 Date KEIRY - 7 assessed: 09/08/24 Feeling nervous, anxious, or on edge: 0 = Not at all Not being able to stop or control worryin = Not at all Worrying too much about different things: 0 = Not at all Trouble relaxin = Not at all Being so restless that it is hard to sit still: 0 = Not at all Becoming easily annoyed or irritable: 0 = Not at all Feeling afraid as if something awful might happen: 0 = Not at all Total KEIRY-7 score (0-4 normal; 5-9 mild; 10-14 moderate; 15-21 severe): 0 Source: Developed by Drs. Durga Mc, Minerva Sparks, Charlie Joya and colleagues, with an educational gail from [employer]. Review of Systems Const Reports difficulty sleeping, Denies fatigue, Denies fever(s) and Denies headache(s) ENT Denies dysphagia, Denies dizziness, Denies otalgia, Denies headache(s), Denies neck pain, Denies odynophagia and Denies sore throat Card Denies chest pain, Denies palpitations and Reports dyspnea on exertion (occasionally) Resp Denies chest congestion, Denies cough, Reports dyspnea on exertion (occasionally) and Denies wheezing GI Denies abdominal pain, Denies constipation, Denies dysphagia, Denies heartburn, Denies diarrhea, Denies nausea, Denies odynophagia and Denies vomiting Denies difficulty voiding, Denies nocturia, Denies dysuria and Denies urinary urgency Musc Denies back pain, Reports arthralgias (right shoulder, on and off) and Denies neck pain Skin/Breast Denies rash Neuro Denies dizziness and Denies headache(s) Psych Reports anxiety (increasing) Endo Denies fatigue and Denies palpitations Aller/Immun Denies wheezing Physical exam (Primary Care) Vital Signs: Last Vital Signs Pulse 76 09/08/24 09:17 BP 124/82 09/08/24 09:17 Pulse Ox 98 09/08/24 09:17 Oxygen Delivery Method Room Air 09/08/24 09:17 BMI result Body Mass Index 24.9 Tobacco/Smoking Status: Tobacco use Status Tobacco use date assessed 09/08/24 09/08/24 09:22 Patient Tobacco Use Status Current everyday Tobacco 09/08/24 09:22 Tobacco use type Cigarette 09/08/24 09:22 e-Cigarette/Vaping Use Never Used 09/08/24 09:22 PHQ-9: PHQ-9 Score PHQ-9: Total score 0 09/08/24 10:09 Depression Screening Interpretation: Negative Thrive Assessment: Date of Thrive Assessment Date Thrive assessed 09/08/24 09/08/24 09:22 Currently or been in a relationship where the following occur: No concerns reported Const General: no acute distress and alert HENMT Ears: TM's normal bilaterally and EAC's normal Throat: Yes posterior oropharynx normal and Yes tonsils normal (no TP congestion noted) Neck Neck: Yes supple and No lymphadenopathy Thyroid: Thyroid normal Resp Auscultation: clear to auscultation bilaterally, no rales, no wheezes and diminished lung sounds (slightly) bilateral Cardio Rate: regular rate Rhythm: regular rhythm Heart sounds: Murmur heart sound present systolic III/ GI Palpation (GI): Soft to palpation and nontender Auscultation: normal bowel sounds General: Yes no CVA tenderness Back/Spine/Pelvis Back: no CVA tenderness Thoracic/Lumbar Spine: No lumbar spinal tenderness Skin Rashes: no rashes Extrem General: Yes no clubbing, cyanosis or edema Office Procedures Flu Questionnaire Does the patient have a severe egg allergy?: No Does the patient have severe life threatening allergies?: No Does the patient have a fever or illness today?: No Has the patient ever had Guillain-[place] Syndrome?: No Has the patient ever had any past reaction to a flu shot?: No Immunizations Fluarix Triv [id number] (PF) 45 mcg (15 mcg x 3)/0.5 mL IM syringe Performing Provider: Jermain Lozano MD [facility] Administered by: SELENE Gibbs on 09/08/24 10:10 Dose Route Admin Location Dispensed Lot Number Expiration Date [facility] Ups Driver 0.5 mL IM Left Deltoid 0.5 mL [id number] 03/27/25 [id number] [employer] VIS Given Date VIS Provided VIS Publication Date 09/08/24 Single Vaccine 21 Eligibility Eligibility Date Funding Source Not [facility] Eligible 09/08/24 Private Results Reviewed Results Reviewed: Laboratory Tests 08/22/24 08/22/24 06:34 06:36 WBC 7.4 Hgb 13.5 Hct 40.2 Plt Count 312 Sodium 140 Potassium 4.5 Creatinine 0.89 Estimated GFR > 60 Fasting Glucose 122 H Calcium 10.0 D AST 29 ALT 26 Triglycerides 81 Cholesterol 139 LDL Cholesterol, Calc 67 HDL Cholesterol 56 Vitamin B12 698 25-OH Vitamin D Total 45.5 TSH 0.28 L Free T4 1.37 Ur Specific [place] 1.010 Urine Protein Negative Urine Glucose (UA) Negative Urine Blood Negative Urine Nitrite Negative Ur Leukocyte Esterase Moderate (2+) H Coding Level of Care Code Est Pt Level 4 (14426) Diagnoses Coronary artery disease involving [place] coronary artery of [place] heart without angina pectoris I25.10 Coronary Disease-Associated Artery/Lesion type: [place] artery [place] vs. transplanted heart: [place] heart Associated angina: without angina Nonrheumatic aortic valve stenosis I35.0 Cardiac valve disease etiology: nonrheumatic Pure hypercholesterolemia E78.00 Benign essential hypertension I10 Acquired hypothyroidism E03.9 Impaired fasting glucose R73.01 Chronic obstructive pulmonary disease, unspecified COPD type J44.9 COPD type: unspecified COPD GERD without esophagitis K21.9 Anemia, unspecified type D64.9 Anemia type: unspecified type Allergic rhinitis, unspecified seasonality, unspecified trigger J30.9 Allergic rhinitis trigger: unspecified Allergic rhinitis seasonality: unspecified Vitamin B12 deficiency E53.8 Insomnia, unspecified type G47.00 Insomnia type: unspecified Anxiety F41.9 Additional Codes PHQ-9 - 76754 - PHQ-9 Billing: Yes ([id number]) Assessment & Plan Assessment & Plan (1) CAD (coronary artery disease): Comment: S/P Inferior STEMI in 07/2021 - had PCI x 2 Code(s): I25.10 - Atherosclerotic heart disease of [place] coronary artery without angina pectoris Category: Medical Qualifiers: Coronary Disease-Associated Artery/Lesion type: [place] artery [place] vs. transplanted heart: [place] heart Associated angina: without angina Qualified Code(s): I25.10 - Atherosclerotic heart disease of [place] coronary artery without angina pectoris Plan: S/P inferior STEMI in 07/2021 - had PCI x 2 Patient currently remains mostly asymptomatic from a cardiac standpoint Continue Aspirin 81 mg QD and Metoprolol ER 25 mg QD; her Brilinta 90 mg QD was discontinued by cardiology 1 year S/P PCI Follow up with cardiology as scheduled (2) Aortic stenosis: Code(s): I35.0 - Nonrheumatic aortic (valve) stenosis Category: Medical Qualifiers: Cardiac valve disease etiology: nonrheumatic Qualified Code(s): I35.0 - Nonrheumatic aortic (valve) stenosis Plan: Repeat echocardiogram done in June 2024 showed no significant change from a year ago - the left ventricular systolic function remains normal, with the calculated ejection fraction at 65% by biplane method. Evidence suggest (+) grade II (moderate) diastolic dysfunction: there is moderate aortic valve stenosis and mild mitral annular calcification as well as trace tricuspid valve regurgitation with no evidence of pulmonary hypertension Per cardiology, still no intervention is indicated at this time as patient does not appear to have any symptoms related to She has been advised to continue aggressive risk factor modification and reminded to call for evaluation/examination as soon as she starts experiencing -related symptoms, particularly increasing FOSTER and fatigue Follow up with cardiology as scheduled (3) Pure hypercholesterolemia: Code(s): E78.00 - Pure hypercholesterolemia, unspecified Category: Medical Plan: Results of her labs done a couple of weeks ago reviewed and discussed with patient Reinforced low cholesterol diet Continue Atorvastatin 80 mg QD and Ezetimibe 10 mg QD Will recheck her labs and fasting lipids in 6 months for follow up (4) Benign essential hypertension: Code(s): I10 - Essential (primary) hypertension Category: Medical Plan: Reinforced low sodium diet - goal is systolic BP of at least 120 mm or less Continue Lisinopril 5 mg QD and Metoprolol ER 25 mg QD (5) Acquired hypothyroidism: Code(s): E03.9 - Hypothyroidism, unspecified Category: Medical Plan: Her TSH is still suppressed but her free T4 level remains normal and patient is clinically euthyroid Continue Levothyroxine 75 mcg QD Will continue to monitor her TFTs regularly (6) Impaired fasting glucose: Code(s): R73.01 - Impaired fasting glucose Category: Medical Plan: Her HgbA1c remained normal at 5.7% when last checked back in February 2024; FBS is currently still elevated at 122 mg/dl on her most recent labs Reinforced low calorie/low carb diet Will recheck her HgbA1c and FBS in 6 months for follow up (7) COPD (chronic obstructive pulmonary disease): Code(s): J44.9 - Chronic obstructive pulmonary disease, unspecified Category: Medical Qualifiers: COPD type: unspecified COPD Qualified Code(s): J44.9 - Chronic obstructive pulmonary disease, unspecified Plan: Stable lately with no acute flare ups She has her Albuterol inhaler but states that she has not felt the need to use her inhaler in a while now (8) GERD without esophagitis: Comment: EGD done in July [address] Fuentes - GE junction appeared irregular and biopsy done revealed chronic inflammatory changes consistent with GERD Code(s): K21.9 - Gastro-esophageal reflux disease without esophagitis Category: Medical Plan: Dietary restrictions reinforced Continue Omeprazole 40 mg QD Follow up with GI (Dr. Fuentes) as scheduled (9) Anemia: Code(s): D64.9 - Anemia, unspecified Category: Medical Qualifiers: Anemia type: unspecified type Qualified Code(s): D64.9 - Anemia, unspecified Plan: Corrected - her H/H have remained normal on her recent labs Will continue to monitor her CBC regularly (10) Allergic rhinitis: Code(s): J30.9 - Allergic rhinitis, unspecified Category: Medical Qualifiers: Allergic rhinitis trigger: unspecified Allergic rhinitis seasonality: unspecified Qualified Code(s): J30.9 - Allergic rhinitis, unspecified Plan: Follow up with ENT as scheduled Continue using her saline nasal gel regularly She was being considered for some procedure for her nasal septum a few years ago but she ended up with an OR subsequently, so this has been held up since - she does not wish to pursue this again for now (11) Vitamin B12 deficiency: Code(s): E53.8 - Deficiency of other specified B group vitamins Category: Medical Plan: Her B12 level is now back to normal on her recent labs - she was previously advised to cut back on her oral Vitamin B12 tablets to just twice a week instead of every other day Will recheck her B12 level in 6 months for follow up (12) Insomnia: Code(s): G47.00 - Insomnia, unspecified Category: Medical Qualifiers: Insomnia type: unspecified Qualified Code(s): G47.00 - Insomnia, unspecified Plan: Sleep hygiene reinforced We have previously advised patient that she can try some OTC Melatonin for sleep - have reassured herthat Melatonin should have very little side effects and are not habit-forming and should be safe for her to take (13) Anxiety: Code(s): F41.9 - Anxiety disorder, unspecified Category: Medical Plan: She is now agreeable to starting on some Rx for maintenance therapy of her anxiety - will start her on Sertraline 25 mg QD Have advised her to stay on Sertraline even though she does not feel like it is helping unless she is experiencing any significant side effects from the Rx so this will allow me to adjust her Rx dose accordingly Continue Lorazepam 0.5 mg BID PRN - Rx refilled Plan As requested, flu vaccine given to patient today Follow up in 6 months Orders: Orders Complete Blood Count Auto Diff 6 Months D64.9 - Anemia, unspecified Lipid Panel 6 Months E78.00 - Pure hypercholesterolemia, unspecified UA CC w/rflx Micro + Cult 6 Months R30.0 - Dysuria Influenza [id number] Immunization 09/08/24 Z23 - Encounter for immunization Comprehensive [place]. Panel Fast 6 Months E78.00 - Pure hypercholesterolemia, unspecified Hemoglobin A1c 6 Months R73.01 - Impaired fasting glucose Free T4 (Free Thyroxine) 6 Months E03.9 - Hypothyroidism, unspecified Thyroid Stimulating Hormone 6 Months E03.9 - Hypothyroidism, unspecified Vitamin D 25-OH Total 6 Months E55.9 - Vitamin D deficiency, unspecified Vitamin B12 and Folate 6 Months E53.8 - Deficiency of other specified B group vitamins Medications: New sertraline 25 mg PO DAILY 30 days 30 tabs 5RF Refilled levothyroxine 75 mcg PO QAM 90 days 90 tabs 1RF lorazepam 0.5 mg PO BID 30 days PRN 60 tabs 0RF anxiety omeprazole 40 mg PO DAILY 90 days 90 caps 1RF
== END 2024-09-08 10:21 | disposition home or self-care (01) ==
PROVIDERS: PCP Internal Medicine; Visit Provider Internal Medicine
DX: Z23 Encounter for immunization (principal)

== ENCOUNTER → 2024-09-08 09:13 | Outpatient (BNVA) | payer OTHER, SELFPAY ==
[2022-06-18 07:37] VITALS: BMI 24.5
[2022-08-26 10:44] VITALS: BP 128/66; BP 142/72
== END ==
PROVIDERS: PCP Internal Medicine; Visit Provider Internal Medicine
DX: Z23 Encounter for immunization (principal); I25.10 Atherosclerotic heart disease of native coronary artery without angina pectoris; I35.0 Nonrheumatic aortic (valve) stenosis; E78.00 Pure hypercholesterolemia, unspecified; I10 Essential (primary) hypertension; E03.9 Hypothyroidism, unspecified; R73.01 Impaired fasting glucose; J44.9 Chronic obstructive pulmonary disease, unspecified; K21.9 Gastro-esophageal reflux disease without esophagitis; D64.9 Anemia, unspecified; J30.9 Allergic rhinitis, unspecified; E53.8 Deficiency of other specified B group vitamins; G47.00 Insomnia, unspecified; F41.9 Anxiety disorder, unspecified
CPT/HCPCS: 90471; 90656; 96127; 99212

== ENCOUNTER 2025-04-10 06:03 | Outpatient (REF) | payer MEDICARE, SELFPAY ==
[2022-06-18 07:37] VITALS: BMI 24.5
[2022-08-26 10:44] VITALS: BP 128/66; BP 142/72
[2025-04-10 06:47] LABS: MANUAL DIFF FLAG NO
[2025-04-10 07:19] LABS: Appearance Urine Clear; Glucose Urine UA Negative (Negative); PH 5.5 (5.0-9.0); Specific Gravity - Urine 1.015 (1.005-1.025); UMIC TRIGGER UACC YES
[2025-04-10 07:25] LABS: UACC Culture Trigger YES
[2025-04-10 07:25] LABS: Hematocrit 39.9 % (37.0-47.0); Hemoglobin 13.3 g/dl (12.0-16.0); Imm Gran Abs Auto 0.03 X10*3/uL (0.00-0.03); Imm Gran Pct Auto 0.4 % (0.0-0.4); Lymphocytes Absolute Auto 3.0 X10*3/uL (1.2-4.9); Mean Corpuscular HGB Conc 33.3 g/dl (31.0-35.0); Mean Corpuscular Hemoglobin 31.8 pg (27.0-33.0); Mean Corpuscular Volume 95.5 fL (80.0-98.0); NRBC Abs Auto 0.000 X10*3/uL (0.0-0.012); NRBC Pct Auto 0.0 /100WBC (0.0-0.2); Platelet Count 310 X10*3/uL (160-400); Red Blood Count 4.18 X10*6/uL (4.20-5.50); White Blood Count 8.1 X10*3/uL (4.8-10.8)
[2025-04-10 07:31] LABS: Hemoglobin A1C 141.3054 umol/L; Total Hemoglobin (HGBA1C) 3497.8931 umol/L
[2025-04-10 08:15] LABS: Alanine Aminotransferase 25 U/L (0-31); Albumin Level 4.1 g/dL (3.5-5.0); Alkaline Phosphatase 62 U/L (39-117); Anion Gap 12 (12-20); Aspartate Amino Transferase 31 U/L (5-31); Blood Urea Nitrogen 13 mg/dL (9-16); Calcium 9.9 mg/dL (8.4-10.2); Carbon Dioxide 25 mmol/L (22-29); Chloride 109 mmol/L (96-108); Cholesterol 134 mg/dL (<200); Estimated Glomerular Filt Rate 58; HDL Cholesterol 55 mg/dL (>40); Potassium 4.6 mmol/L (3.3-5.1); Sodium 141 mmol/L (135-145); Total Protein 7.0 g/dL (6.5-8.0); Triglycerides 103 mg/dL (<150)
[2025-04-10 08:37] LABS: Folate 8.6 ng/mL (> or = 4.0); Vitamin B12 1144 pg/mL (200-900)
[2025-04-10 08:38] LABS: Free T4 (Free Thyroxine) 1.13 ng/dL (0.71-1.85); Thyroid Stimulating Hormone 1.50 uIU/mL (0.32-4.0)
== END 2025-04-10 06:04 | disposition home or self-care (01) ==
LOC: HO.LAB 06:03
PROVIDERS: PCP Internal Medicine; Visit Provider Internal Medicine
DX: R30.0 Dysuria (principal); D64.9 Anemia, unspecified; E78.00 Pure hypercholesterolemia, unspecified; E03.9 Hypothyroidism, unspecified; E55.9 Vitamin D deficiency, unspecified; E53.8 Deficiency of other specified B group vitamins; R73.01 Impaired fasting glucose
CPT/HCPCS: 36415; 80053; 80061; 81001; 82306; 82607; 82746; 83036; 84439; 84443; 85025; 87086

== ENCOUNTER 2025-04-20 08:13 | Outpatient (AMB) | payer MEDICARE, SELFPAY ==
[2022-06-18 07:37] VITALS: BMI 24.5
[2022-08-26 10:44] VITALS: BP 128/66; BP 142/72
--- OUTSIDE RECORDS SUMMARY | 2025-04-20 08:24 | XMS_ITS | Patient Health Record ---
Author Organization [facility] Address [address] [place] [address] Care Team Providers Care Construction Director Name Role Phone Blake JOSHUA, [place] Primary Care Provider Thien Patterson Jr Unavailable [phone] Allergies Allergen (clinical drug ingredient) Drug/Non Drug Allergy documented on EMR Reaction Allergy Type Onset Date Status Penicillin Unknown Drug Allergy Active codeine Codeine Sulfate Unknown Drug Allergy A ctive Reason For Referral No Information Medications Medication SIG (Take, Route, Frequency, Duration) Notes Start Date End Date Status LORazepam 1 MG TAKE 1/2 TABLET BY M OUTH TWICE A DAY NEEDED FOR ANXIETY Orally BID/PRN Active Pantoprazole Sodium 40 MG 1 tablet Orall y Once a day Active Levothyroxine Sodium 75 MCG TAKE 1 TABEL T EVERY MORNING ON EMPTY STOMACH Orally Once a day Active Pantoprazole Sodium 40 TAKE 1 TABLET BY MOUTH TWICE DAILY for 30 Active Immunizations Vaccine Route Administration Date Status Comme nts Flu vaccine no Preserv 3 and > Unknown 06/18/2016 Admin istered Problems Problem Type SNOMED Code ICD Code Onset Dates Problem Status W/U Status Risk Notes Problem [id number] Anemia (285.9) Active confirmed Problem [id number] Abnormal finding s in stool (792.1) Active confirmed Problem [id number] Gastroesophageal reflux disease without esophagitis (K21.9) Active confirmed Plan Of Treatment No Information Insurance Providers Payer Name Payer Address Payer Phone Subscriber Number Group Number Insured Name Patient Relationship to Insured Coverage Start Date Coverage End Date MEDICARE OF [place] [address] [place] [address] [id number] JUDE CASTRO Self - patient is the insured [facility] [employer] [address] [place] [address] [phone] [id number] JUDE CASTRO Self - patient is the insured Medical (General) History Medical History History ICD Code Denies VA,DM,CVA,Lung disease,renal dise ase Surgical History Surgery Date(Month/Year) tonsillectomy appendectomy hysterectomy
--- NOTE | 2025-04-20 08:42 | A.OFFPC_ITS ---
Vital Signs 04/20/25 08:43 Height 5 ft 2 in Weight 130 lb BMI 23.8 BP 100/62 Blood Pressure Location Lt brachial Position Sitting Respiration 18 Pulse 74 Temp 97.4 F Temp Source Oral Pulse Oximetry (%) 96 Oxygen Delivery Method Room Air Intake Visit Reasons: 6 month f/u Methods Specialist Engineer Required: No Accompanied by: Self / Same As Patient Allergies Penicillins (PENICILLINS) Allergy (Intermediate, Verified 04/20/25 08:51) HIVES codeine (CODEINE) Adverse Reaction (Intermediate, Verified 04/20/25 08:51) CONFUSION Medication List - Last Reconciled 04/20/25 by LANI Johnson aspirin 81 mg PO DAILY atorvastatin 80 mg PO DAILY ezetimibe (Zetia) 10 mg PO DAILY levothyroxine 75 mcg PO QAM 90 days lisinopril 5 mg PO DAILY lorazepam 0.5 mg PO BID PRN 30 days metoprolol succinate ER 25 mg PO DAILY 90 days mupirocin 2% 1 appl topical BID 10 days omeprazole 40 mg PO DAILY 90 days sertraline 50 mg PO DAILY 30 days Tobacco use date assessed: 04/20/25 Fall risk assessment: No Falls in past year Last assessed Fall Risk: 04/20/25 Dental Screening Dental Screen Date: 04/20/25 Did you have a dental visit in the last 12 months?: No Did you have a dental problem in the last 6 months where you did not have access to dental care?: No Was dental information given to patient?: Patient has dentist HPI 6 month f/u HPI Details The patient is a 79-year-old female presenting with anxiety and insomnia management. She reports ongoing anxiety, particularly when leaving the house or performing tasks, despite being on sertraline, which was recently increased to 50 mg daily. She occasionally uses lorazepam for acute anxiety episodes and to aid sleep, noting it is effective but not used regularly. The patient experiences significant insomnia (unable to shut her mind off), describing difficulty falling asleep and staying asleep, often feeling as though she has consumed caffeine before bed. She reports using lorazepam a few times a week to help with sleep, which she describes as horrible. The patient reports leg cramps, particularly at night, which she attributes to her cholesterol medication. She describes the cramps as severe and lasting up to an hour, affecting various parts of her legs. The patient has a history of hyperlipidemia, managed with medication, and her recent blood work shows elevated vitamin B12 levels, which she manages by taking supplements every other day. Her thyroid function tests returned normal, despite a family history of thyroid issues. 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 Benign essential hypertension Anxiety Insomnia Peripheral neuropathy Vitamin B12 deficiency Impaired fasting glucose Cardiac murmur Anemia GERD without esophagitis Allergic rhinitis COPD (chronic obstructive pulmonary disease) Acquired hypothyroidism Pure hypercholesterolemia Surgical History S/P coronary artery stent placement (~07/2021) Family History Father Medical history unknown Mother Medical history unknown Social History Housing: House Alcohol intake: never Patient Tobacco Use Status: Current everyday Tobacco user Tobacco use type: Cigarette Cigarette Packs Per Day: 0.10 Cigarettes Per Day: 2 Years Smoked: 50+ e-Cigarette/Vaping Use: Never Used Second Hand Smoke Exposure: Yes service: No Current occupational status: retired Current occupational exposures/hazards: No Cognitive needs: No Hearing needs: No Vision needs: Yes (Glasses) Questionnaire PHQ-9 Over the last 2 weeks, how often have you been bothered by any of the following problems? 1. Little interest or pleasure in doing things: not at all 2. Feeling down, depressed, or hopeless: several days 3. Trouble falling or staying asleep, or sleeping too much: more than half the days 4. Feeling tired or having little energy: more than half the days 5. Poor appetite or overeating: not at all 6. Feeling bad about yourself - or that you are a failure or have let yourself or your family down: not at all 7. Trouble concentrating on things, such as reading the newspaper or watching television: not at all 8. Moving or speaking so slowly that other people could have noticed. Or the opposite - being so fidgety or restless that you have been moving around a lot more than usual: not at all 9. Thoughts that you would be better off or of hurting yourself in some way: not at all Total score: 5 Depression Screening Interpretation: Negative Depression Screening Done: Yes [id number] - PHQ-9 Billing: Yes Source: Developed by Drs. Durga Mc, Minerva Sparks, Charlie Joya and colleagues, with an educational gail from [employer]. Thrive Questionnaire Date Thrive assessed: 04/20/25 I am a: Patient What is your living situation today?: I have a steady place to live Within the past 12 months, did the food you bought not last and you didn't have the money to get more?: Never true Within the past 12 months, did you worry whether your food would run out before you got money to buy more?: Never true Do you have trouble paying for medicines?: No Do you have trouble getting transportation to medical appointments?: No Do you have trouble paying your heating and electricity bill?: No Do you have trouble taking care of your child, family member or friend?: No Do you have trouble with day-to-day activities such as bathing, preparing meals, shopping, managing finances, etc.?: No Are you currently unemployed and looking for a job?: Yes Are you interested in more education?: No Please select the resources that you would like help with: None Currently or been in a relationship where the following occur: No concerns reported THRIVE Score: 0 AUDIT C Alcohol Use Questionnaire (AUDIT-C) 1. How often do you have a drink containing alcohol?: Never Total Score: 0 KEIRY-7 AMB Questionnaire KEIRY-7 Date KEIRY - 7 assessed: 04/20/25 Feeling nervous, anxious, or on edge: 1 = Several days Not being able to stop or control worryin = Several days Worrying too much about different things: 1 = Several days Trouble relaxin = Several days Being so restless that it is hard to sit still: 1 = Several days Becoming easily annoyed or irritable: 0 = Not at all Feeling afraid as if something awful might happen: 1 = Several days Total KEIRY-7 score (0-4 normal; 5-9 mild; 10-14 moderate; 15-21 severe): 6 Source: Developed by Minerva Corona. Bridger, Charlie Joya and colleagues, with an educational gail from [employer]. KEIRY-7 Assessment Billing KEIRY-7 Assessment Tool: KEIRY-7 Assessment 64870 Review of Systems Const Denies body aches, Denies chills, Reports difficulty sleeping, Reports fatigue, Denies fever(s), Denies headache(s) and Denies poor appetite Eyes Reports no additional complaints ENT Denies dysphagia, Denies dizziness, Denies headache(s) and Denies odynophagia Card Denies chest pain, Denies syncope, Denies edema, Denies irregular heart rhythm, Denies lightheadedness and Denies dyspnea Resp Denies cough and Denies dyspnea GI Denies abdominal pain, Denies constipation, Denies dysphagia, Reports heartburn (Occasionally depending on what she eats), Denies diarrhea, Denies nausea, Denies odynophagia and Denies vomiting Denies dysuria, Denies urinary hesitancy and Denies urinary urgency Musc Denies abnormal gait, Denies back pain and Denies arthralgias Skin/Breast Reports system reviewed and no additional complaints, except as documented Neuro Denies Abnormal speech present, Denies abnormal gait, Denies dizziness, Denies syncope and Denies headache(s) Psych Reports anxiety, Denies depression, Denies homicidal ideation and Denies suicidal ideation Endo Denies cold intolerance, Reports fatigue and Denies heat intolerance Physical exam (Primary Care) Vital Signs: Last Vital Signs Temp 97.4 F 04/20/25 08:43 Pulse 74 04/20/25 08:43 Resp 18 04/20/25 08:43 BP 100/62 04/20/25 08:43 Oxygen Delivery Method Room Air 04/20/25 08:43 Oxygen Flow Rate 96 04/20/25 08:43 BMI result Body Mass Index 23.8 Tobacco/Smoking Status: Tobacco use Status Tobacco use date assessed 04/20/25 04/20/25 08:48 Patient Tobacco Use Status Current everyday Tobacco 04/20/25 08:48 Tobacco use type Cigarette 04/20/25 08:48 e-Cigarette/Vaping Use Never Used 04/20/25 08:48 PHQ-9: PHQ-9 Score PHQ-9: Total score 5 04/20/25 09:27 Depression Screening Interpretation: Negative Thrive Assessment: Date of Thrive Assessment Date Thrive assessed 04/20/25 04/20/25 08:48 Currently or been in a relationship where the following occur: No concerns reported Const General: healthy appearing, no acute distress, alert and awake Nutritional Appearance: well nourished Orientation/consciousness: oriented to person, oriented to place and oriented to time [facility] Ears: hearing grossly normal bilaterally General nose exam: Normal external nose present Eyes Conjunctivae: conjunctivae normal Sclerae: sclerae normal Pupils: Equal, round and reactive pupils present Neck Neck: Yes no lymphadenopathy and Yes no JVD Thyroid: Thyroid normal Carotids: no bruits Resp Effort & Inspection: normal respiratory effort and not tachypneic Auscultation: no crackles, no rales, no rhonchi and no wheezes Cardio Rate: regular rate Rhythm: regular rhythm Heart sounds: S1 normal heart sound present, S2 normal heart sound present, Murmur heart sound present systolic mid and harsh and normal S1 and S2 GI Palpation (GI): Soft to palpation and nontender Auscultation: normal bowel sounds General: Yes no CVA tenderness Back/Spine/Pelvis Back: no CVA tenderness Skin General skin exam: no rashes or lesions noted and dry skin Neuro General: oriented to person, oriented to place and oriented to time Cranial nerves: Yes Equal, round and reactive pupils present Speech: No Abnormal speech present Gait exam (Neuro): Normal gait present Motor exam (neuro): no tremor noted Extrem Right upper extremity: full ROM Left upper extremity: full ROM Right lower extremity: full ROM; no edema Left lower extremity: full ROM; no edema Psych Mental Status: mental status grossly normal Speech and movement: Normal speech and movement present Affect: normal affect Attitude: cooperative Thought process: Normal thought process present Results Reviewed Results Reviewed: Laboratory Tests 04/10/25 04/10/25 06:23 06:44 WBC 8.1 RBC 4.18 L Hgb 13.3 Hct 39.9 MCV 95.5 MCH 31.8 MCHC 33.3 RDW 13.4 Plt Count 310 MPV 9.4 Immature Gran % (Auto) 0.4 Sodium 141 Potassium 4.6 Chloride 109 H Carbon Dioxide 25 Anion Gap 12 BUN 13 Creatinine 0.93 Estimated GFR 58 Fasting Glucose 100 H Estimat Average Glucose 120 Hemoglobin A1c % 5.8 Calcium 9.9 Total Bilirubin 1.1 H AST 31 ALT 25 Alkaline Phosphatase 62 Total Protein 7.0 Albumin 4.1 Triglycerides 103 Cholesterol 134 LDL Cholesterol, Calc 59 HDL Cholesterol 55 Vitamin B12 1144 H 25-OH Vitamin D Total 43.5 Folate 8.6 TSH 1.50 Free T4 1.13 Urine Color Yellow Urine Appearance Clear Urine pH 5.5 Ur Specific [place] 1.015 Urine Protein Negative Urine Glucose (UA) Negative Urine Ketones Negative Urine Blood Negative Urine Nitrite Negative Ur Leukocyte Esterase Moderate (2+) H Urine RBC 0-2 Urine WBC 11-20 H Ur Squamous Epith Cells 0-2 Urine Bacteria None Seen Hyaline Casts 0-2 Coding Level of Care Code Est Pt Level 4 (80038) Diagnoses Coronary artery disease involving [place] coronary artery of [place] heart without angina pectoris I25.10 Associated angina: without angina Coronary Disease-Associated Artery/Lesion type: [place] artery [place] vs. transplanted heart: [place] heart Nonrheumatic aortic valve stenosis I35.0 Cardiac valve disease etiology: nonrheumatic Pure hypercholesterolemia E78.00 Benign essential hypertension I10 Acquired hypothyroidism E03.9 Impaired fasting glucose R73.01 Chronic obstructive pulmonary disease, unspecified COPD type J44.9 COPD type: unspecified COPD GERD without esophagitis K21.9 Anemia, unspecified type D64.9 Anemia type: unspecified type Allergic rhinitis, unspecified seasonality, unspecified trigger J30.9 Allergic rhinitis seasonality: unspecified Allergic rhinitis trigger: unspecified Vitamin B12 deficiency E53.8 Insomnia, unspecified type G47.00 Insomnia type: unspecified Anxiety F41.9 Additional Codes KEIRY-7 Assessment Billing - KEIRY-7 Assessment Tool: KEIRY-7 Assessment [id number] ([id number]) PHQ-9 - 16298 - PHQ-9 Billing: Yes ([id number]) Time Spent (min) 41 Assessment & Plan Assessment & Plan (1) CAD (coronary artery disease): Comment: S/P Inferior STEMI in 07/2021 - had PCI x 2 Code(s): I25.10 - Atherosclerotic heart disease of [place] coronary artery without angina pectoris Category: Medical Qualifiers: Associated angina: without angina Coronary Disease-Associated Artery/Lesion type: [place] artery [place] vs. transplanted heart: [place] heart Qualified Code(s): I25.10 - Atherosclerotic heart disease of [place] coronary artery without angina pectoris Plan: S/P inferior STEMI in 07/2021 - had PCI x 2 Patient currently remains mostly asymptomatic from a cardiac standpoint Continue Aspirin 81 mg QD and Metoprolol ER 25 mg QD; her Brilinta 90 mg QD was discontinued by cardiology 1 year S/P PCI Follow up with cardiology as scheduled (2) Aortic stenosis: Code(s): I35.0 - Nonrheumatic aortic (valve) stenosis Category: Medical Qualifiers: Cardiac valve disease etiology: nonrheumatic Qualified Code(s): I35.0 - Nonrheumatic aortic (valve) stenosis Plan: Repeat echocardiogram done in June 2024 showed no significant change from a year ago - the left ventricular systolic function remains normal, with the calculated ejection fraction at 65% by biplane method. Evidence suggest (+) grade II (moderate) diastolic dysfunction: there is moderate aortic valve stenosis and mild mitral annular calcification as well as trace tricuspid valve regurgitation with no evidence of pulmonary hypertension Per cardiology, still no intervention is indicated at this time as patient does not appear to have any symptoms related to She has been advised to continue aggressive risk factor modification and reminded to call for evaluation/examination as soon as she starts experiencing -related symptoms, particularly increasing FOSTER and fatigue Follow up with cardiology as scheduled (3) Pure hypercholesterolemia: Code(s): E78.00 - Pure hypercholesterolemia, unspecified Category: Medical Plan: Triglycerides 1 3, total cholesterol 134, LDL 59, HDL 55 Discussed lifestyle modifications including dietary changes and physical activity Continue Atorvastatin 80 mg QD and Ezetimibe 10 mg QD Will recheck her labs and fasting lipids in 6 months for follow up (4) Benign essential hypertension: Code(s): I10 - Essential (primary) hypertension Category: Medical Plan: Reinforced low sodium diet - goal is systolic BP of at least 120 mm or less Continue Lisinopril 5 mg QD and Metoprolol ER 25 mg QD (5) Acquired hypothyroidism: Code(s): E03.9 - Hypothyroidism, unspecified Category: Medical Plan: TSH 1.50 and T4 1.13 remains clinically euthyroid Continue Levothyroxine 75 mcg QD Will continue to monitor her TFTs regularly (6) Impaired fasting glucose: Code(s): R73.01 - Impaired fasting glucose Category: Medical Plan: The patient fasting glucose decreased to 100 from 122 to mg/dL and A1c is 5.8% increase by 1 point since last checked Reinforced low calorie/low carb diet Will recheck her HgbA1c and FBS in 6 months for follow up (7) COPD (chronic obstructive pulmonary disease): Code(s): J44.9 - Chronic obstructive pulmonary disease, unspecified Category: Medical Qualifiers: COPD type: unspecified COPD Qualified Code(s): J44.9 - Chronic obstructive pulmonary disease, unspecified Plan: Stable lately with no acute flare ups She has her Albuterol inhaler but states that she has not felt the need to use her inhaler in a while now (8) GERD without esophagitis: Comment: EGD done in July [address] Fuentes - GE junction appeared irregular and biopsy done revealed chronic inflammatory changes consistent with GERD Code(s): K21.9 - Gastro-esophageal reflux disease without esophagitis Category: Medical Plan: Reports occasional heartburn depending what she eats Reinforced dietary restriction Continue Omeprazole 40 mg QD Follow up with GI (Dr. Fuentes) as scheduled (9) Anemia: Code(s): D64.9 - Anemia, unspecified Category: Medical Qualifiers: Anemia type: unspecified type Qualified Code(s): D64.9 - Anemia, unspecified Plan: Corrected - her H/H 13.3/39.9 have remained normal on her recent labs Will continue to monitor her CBC regularly (10) Allergic rhinitis: Code(s): J30.9 - Allergic rhinitis, unspecified Category: Medical Qualifiers: Allergic rhinitis seasonality: unspecified Allergic rhinitis trigger: unspecified Qualified Code(s): J30.9 - Allergic rhinitis, unspecified Plan: Follow up with ENT as scheduled Continue using her saline nasal gel regularly She was being considered for some procedure for her nasal septum a few years ago but she ended up with an [place] subsequently, so this has been held up since - she does not wish to pursue this again for now (11) Vitamin B12 deficiency: Code(s): E53.8 - Deficiency of other specified B group vitamins Category: Medical Plan: Vitamin being b12 is 1144 encouraged the patient to continue taking this qod, if it continues to be elevated on next check, she could decrease frequency to twice a week like before Will recheck her B12 level in 6 months for follow up (12) Insomnia: Code(s): G47.00 - Insomnia, unspecified Category: Medical Qualifiers: Insomnia type: unspecified Qualified Code(s): G47.00 - Insomnia, unspecified Plan: Sleep hygiene reinforced We have previously advised patient that she can try some OTC Melatonin for sleep - have reassured her that Melatonin should have very little side effects and are not habit-forming and should be safe for her to take. The patient reports that she has been using the lorazepam at night to help with sleep because her insomnia is related to her not being able to shut her mind off at times. (13) Anxiety: Code(s): F41.9 - Anxiety disorder, unspecified Category: Medical Plan: Patient reports that she is still having anxiety especially when she has to go out to the supermarket. Reports that she feels some what better because before she used to shake when her anxiety would come. Sertraline increased to 100 mg from 50 mg. We will have the patient follow up in 6 weeks. Continue lorazepam 0.5 b.i.d. as needed for anxiety Plan follow 6 weeks for anxiety an six-month for other chronic conditions Orders: Orders Complete Blood Count Auto Diff 6 Months D64.9 - Anemia, unspecified, E03.9 - Hypothyroidism, unspecified, E53.8 - Deficiency of other specified B group vitamins, E66.3 - Overweight, E78.00 - Pure hypercholesterolemia, unspecified, F41.9 - Anxiety disorder, unspecified, I10 - Essential (primary) hypertension, I25.10 - Atherosclerotic heart disease of [place] coronary artery without angina pectoris, I35.0 - Nonrheumatic aortic (valve) stenosis, J30.9 - Allergic rhinitis, unspecified, J44.9 - Chronic obstructive pulmonary disease, unspecified, K21.9 - Gastro-esophageal reflux disease without esophagitis, R01.1 - Cardiac murmur, unspecified, R73.01 - Impaired fasting glucose UA CC w/rflx Micro + Cult 6 Months D64.9 - Anemia, unspecified, E03.9 - Hypothyroidism, unspecified, E53.8 - Deficiency of other specified B group vitamins, E66.3 - Overweight, E78.00 - Pure hypercholesterolemia, unspecified, F41.9 - Anxiety disorder, unspecified, I10 - Essential (primary) hypertension, I25.10 - Atherosclerotic heart disease of [place] coronary artery without angina pectoris, I35.0 - Nonrheumatic aortic (valve) stenosis, J30.9 - Allergic rhinitis, unspecified, J44.9 - Chronic obstructive pulmonary disease, unspecified, K21.9 - Gastro-esophageal reflux disease without esophagitis, R01.1 - Cardiac murmur, unspecified, R73.01 - Impaired fasting glucose Vitamin D 25-OH Total 6 Months D64.9 - Anemia, unspecified, E03.9 - Hypothyroidism, unspecified, E53.8 - Deficiency of other specified B group vitamins, E66.3 - Overweight, E78.00 - Pure hypercholesterolemia, unspecified, F41.9 - Anxiety disorder, unspecified, I10 - Essential (primary) hypertension, I25.10 - Atherosclerotic heart disease of [place] coronary artery without angina pectoris, I35.0 - Nonrheumatic aortic (valve) stenosis, J30.9 - Allergic rhinitis, unspecified, J44.9 - Chronic obstructive pulmonary disease, unspecified, K21.9 - Gastro-esophageal reflux disease without esophagitis, R01.1 - Cardiac murmur, unspecified, R73.01 - Impaired fasting glucose Magnesium 6 Months D64.9 - Anemia, unspecified, E03.9 - Hypothyroidism, unspecified, E53.8 - Deficiency of other specified B group vitamins, E66.3 - Overweight, E78.00 - Pure hypercholesterolemia, unspecified, F41.9 - Anxiety disorder, unspecified, I10 - Essential (primary) hypertension, I25.10 - Atherosclerotic heart disease of [place] coronary artery without angina pectoris, I35.0 - Nonrheumatic aortic (valve) stenosis, J30.9 - Allergic rhinitis, unspecified, J44.9 - Chronic obstructive pulmonary disease, unspecified, K21.9 - Gastro-esophageal reflux disease without esophagitis, R01.1 - Cardiac murmur, unspecified, R73.01 - Impaired fasting glucose Comprehensive [place]. Panel Fast 6 Months D64.9 - Anemia, unspecified, E03.9 - Hypothyroidism, unspecified, E53.8 - Deficiency of other specified B group vitamins, E66.3 - Overweight, E78.00 - Pure hypercholesterolemia, unspecified, F41.9 - Anxiety disorder, unspecified, I10 - Essential (primary) hypertension, I25.10 - Atherosclerotic heart disease of [place] coronary artery without angina pectoris, I35.0 - Nonrheumatic aortic (valve) stenosis, J30.9 - Allergic rhinitis, unspecified, J44.9 - Chronic obstructive pulmonary disease, uns pecified, K21.9 - Gastro-esophageal reflux disease without esophagitis, R01.1 - Cardiac murmur, unspecified, R73.01 - Impaired fasting glucose Lipid Panel 6 Months D64.9 - Anemia, unspecified, E03.9 - Hypothyroidism, unspecified, E53.8 - Deficiency of other specified B group vitamins, E66.3 - Overweight, E78.00 - Pure hypercholesterolemia, unspecified, F41.9 - Anxiety di sorder, unspecified, I10 - Essential (primary) hypertension, I25.10 - Atherosclerotic heart disease of [place] coronary artery without angina pectoris, I35.0 - Nonrheumatic aortic (valve) stenosis, J30.9 - Allergic rhinitis, unspecified, J44.9 - Chronic obstructive pulmonary disease, unspecified, K21.9 - Gastro-esophageal reflux disease without esophagitis, R01.1 - Cardiac murmur, unspecified, R73.01 - Impaired fasting glucose TSH reflex Free T4 6 Months D64.9 - Anemia, unspecified, E03.9 - Hypothyroidism, unspecified, E53.8 - Deficiency of other specified B group vit amins, E66.3 - Overweight, E78.00 - Pure hypercholesterolemia, unspecified, F41.9 - Anxiety disorder, unspecified, I10 - Essential (primary) hypertension, I25.10 - Atherosclerotic heart disease of [place] coronary artery without angina pectoris, I35.0 - Nonrheumatic aortic (valve) stenosis, J30.9 - Allergic rhinitis, unspecified, J44.9 - Chronic obstructive pulmonary disease, unspecified, K21.9 - Gastro-esophageal reflux disease without esophagitis, R01.1 - Cardiac murmur, unspecified, R73.01 - Impaired fasting glucose Vitamin B12 and Folate 6 Months D64.9 - Anemia, unspecified, E03.9 - Hypothyroidism, unspecified, E53.8 - Deficiency of other specified B group vitamins, E66.3 - Overweight, E78.00 - Pure hypercholesterolemia, unspecified, F41.9 - Anxiety disorder, unspecified, I10 - Essential (primary) hypertension, I25.10 - Atherosclerotic heart disease of [place] coronary artery without angina pectoris, I35.0 - Nonrheumatic aortic (valve) stenosis, J30.9 - Allergic rhinitis, unspecified, J44.9 - Chronic obstructive pulmonary disease, unspecified, K21.9 - Gastro-esophageal reflux disease without esophagitis, R01.1 - Cardiac murmur, unspecified, R73.01 - Impaired fasting glucose Free T4 (Free Thyroxine) 6 Months D64.9 - Anemia, unspecified, E03.9 - Hypothyroidism, unspecified, E53.8 - Deficiency of other specified B group vitam ins, E66.3 - Overweight, E78.00 - Pure hypercholesterolemia, unspecified, F41.9 - Anxiety disorder, unspecified, I10 - Essential (primary) hypertension, I25.10 - Atherosclerotic heart disease of [place] coronary artery without angina pectoris, I35.0 - Nonrheumatic aortic (valve) stenosis, J30.9 - Allergic rhinitis, unspecified, J44.9 - Chronic obstructive pulmonary disease, unspecified, K21.9 - Gastro-esophageal reflux disease without esophagitis, R01.1 - Cardiac murmur, unspecified, R73.01 - Impaired fasting glucose Hemoglobin A1c 6 Months D64.9 - Anemia, unspecified, E03.9 - Hypothyroidism, unspecified, E53.8 - Deficiency of other specified B group vitamins, E66.3 - Overweight, E78.00 - Pure hypercholesterolemia, unspecified, F41.9 - Anxiety disorder, unspecified, I10 - Essential (primary) hypertension, I25.10 - Atherosclerotic heart disease of [place] coronary artery without angina pectoris, I35.0 - Nonrheumatic aortic (valve) stenosis, J30.9 - Allergic rhinitis, unspecified, J44.9 - Chronic obstructive pulmonary disease, unspecified, K21.9 - Gastro-esophageal reflux disease without esophagitis, R01.1 - Cardiac murmur, unspecified, R73.01 - Impaired fasting glucose Medications: New sertraline 100 mg PO DAILY 30 tabs 3RF Discontinued sertraline Discontinued Reason: Duplicate 50 mg PO DAILY 30 days 30 tabs 1RF
[2025-04-20 08:43] VITALS: BP 100/62; PULSE 74; RESP 18; TEMP 36.3; O2SAT 96; BMI 23.8
== END 2025-04-20 09:14 | disposition home or self-care (01) ==
LOC: HO.HMCH 08:14
PROVIDERS: PCP Internal Medicine
DX: I25.10 Atherosclerotic heart disease of native coronary artery without angina pectoris (principal); J44.9 Chronic obstructive pulmonary disease, unspecified; I35.0 Nonrheumatic aortic (valve) stenosis; E78.00 Pure hypercholesterolemia, unspecified; I10 Essential (primary) hypertension; E03.9 Hypothyroidism, unspecified; R73.01 Impaired fasting glucose; K21.9 Gastro-esophageal reflux disease without esophagitis; D64.9 Anemia, unspecified; J30.9 Allergic rhinitis, unspecified; E53.8 Deficiency of other specified B group vitamins; G47.00 Insomnia, unspecified

== ENCOUNTER → 2025-04-20 08:13 | Outpatient (BNVA) | payer MEDICARE, SELFPAY ==
[2022-06-18 07:37] VITALS: BMI 24.5
[2022-08-26 10:44] VITALS: BP 128/66; BP 142/72
== END ==
PROVIDERS: PCP Internal Medicine
DX: I25.10 Atherosclerotic heart disease of native coronary artery without angina pectoris (principal); I35.0 Nonrheumatic aortic (valve) stenosis; I10 Essential (primary) hypertension; E78.00 Pure hypercholesterolemia, unspecified; E03.9 Hypothyroidism, unspecified; R73.01 Impaired fasting glucose; J44.9 Chronic obstructive pulmonary disease, unspecified; K21.9 Gastro-esophageal reflux disease without esophagitis; D64.9 Anemia, unspecified; J30.9 Allergic rhinitis, unspecified; E53.8 Deficiency of other specified B group vitamins; F41.9 Anxiety disorder, unspecified; G47.00 Insomnia, unspecified
CPT/HCPCS: 96127; 99212

== ENCOUNTER 2025-06-02 08:40 | Outpatient (AMB) | payer MEDICARE, SELFPAY ==
[2022-06-18 07:37] VITALS: BMI 24.5
[2022-08-26 10:44] VITALS: BP 128/66; BP 142/72
[2025-06-02 08:44] VITALS: BP 106/50; PULSE 51; RESP 18; TEMP 36; O2SAT 96; BMI 23.4
--- NOTE | 2025-06-02 08:44 | MHC.PC.OV ---
Vital Signs 06/02/25 08:44 Height 5 ft 2 in Weight 128 lb BMI 23.4 BP 106/50 L Blood Pressure Location Lt brachial Position Sitting Respiration 18 Pulse 51 Pulse Source Pulse Oximeter Temp 96.8 F Temp Source Temporal Artery Scan Pulse Oximetry (%) 96 Oxygen Delivery Method Room Air Intake Visit Reasons: anxiety Dairy Nutrition Consultant Required: No Accompanied by: Self / Same As Patient Allergies Penicillins (PENICILLINS) Allergy (Intermediate, Verified 06/02/25 09:17) HIVES codeine (CODEINE) Adverse Reaction (Intermediate, Verified 06/02/25 09:17) CONFUSION Medication List - Last Reconciled 06/02/25 by LANI Johnson aspirin 81 mg PO DAILY atorvastatin 80 mg PO DAILY ezetimibe (Zetia) 10 mg PO DAILY levothyroxine 75 mcg PO QAM 90 days lisinopril 5 mg PO DAILY lorazepam 0.5 mg PO BID PRN 30 days metoprolol succinate ER 25 mg PO DAILY 90 days omeprazole 40 mg PO DAILY 90 days sertraline 100 mg PO DAILY Tobacco use date assessed: 06/02/25 Fall risk assessment: No Falls in past year Last assessed Fall Risk: 06/02/25 Dental Screening Dental Screen Date: 06/02/25 Did you have a dental visit in the last 12 months?: No Did you have a dental problem in the last 6 months where you did not have access to dental care?: No Was dental information given to patient?: No HPI anxiety HPI Details The patient is a 79-year-old female presenting with anxiety management. The patient reports that the current medication regimen has been effective but occasionally she has a breakthrough of anxiety that is not touched by the Sertraline. She finds lorazepam to be more effective in managing her symptoms when they are intense, providing a calming effect without causing tiredness. The patient experiences anxiety related to upcoming travel plans, specifically concerning potential flight delays and airport navigation. She expresses a desire to live in the moment but finds it challenging due to her tendency to think ahead. 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 Benign essential hypertension Anxiety Insomnia Peripheral neuropathy Vitamin B12 deficiency Impaired fasting glucose Cardiac murmur Anemia GERD without esophagitis Allergic rhinitis COPD (chronic obstructive pulmonary disease) Acquired hypothyroidism Pure hypercholesterolemia Surgical History S/P coronary artery stent placement (~07/2021) Family History Father Medical history unknown Mother Medical history unknown Social History Housing: House Alcohol intake: never Patient Tobacco Use Status: Current everyday Tobacco user Tobacco use type: Cigarette Cigarette Packs Per Day: 0.10 Cigarettes Per Day: 2 Years Smoked: 50+ Packs Per Year: 0 Packs per year/per ci.00 e-Cigarette/Vaping Use: Never Used Second Hand Smoke Exposure: Yes service: No Current occupational status: retired Current occupational exposures/hazards: No Cognitive needs: No Hearing needs: No Vision needs: Yes (Glasses) Questionnaire PHQ-9 Over the last 2 weeks, how often have you been bothered by any of the following problems? 1. Little interest or pleasure in doing things: not at all 2. Feeling down, depressed, or hopeless: several days 3. Trouble falling or staying asleep, or sleeping too much: more than half the days 4. Feeling tired or having little energy: more than half the days 5. Poor appetite or overeating: not at all 6. Feeling bad about yourself - or that you are a failure or have let yourself or your family down: not at all 7. Trouble concentrating on things, such as reading the newspaper or watching television: not at all 8. Moving or speaking so slowly that other people could have noticed. Or the opposite - being so fidgety or restless that you have been moving around a lot more than usual: not at all 9. Thoughts that you would be better off or of hurting yourself in some way: not at all Total score: 5 Depression Screening Interpretation: Negative Depression Screening Done: Yes Source: Developed by Drs. Durga Mc, Minerva Sparks, Charlie Joya and colleagues, with an educational gail from [employer]. Thrive Questionnaire Date Thrive assessed: 06/02/25 I am a: Patient What is your living situation today?: I have a steady place to live Within the past 12 months, did the food you bought not last and you didn't have the money to get more?: Never true Within the past 12 months, did you worry whether your food would run out before you got money to buy more?: Never true Do you have trouble paying for medicines?: No Do you have trouble getting transportation to medical appointments?: No Do you have trouble paying your heating and electricity bill?: No Do you have trouble taking care of your child, family member or friend?: No Do you have trouble with day-to-day activities such as bathing, preparing meals, shopping, managing finances, etc.?: No Are you currently unemployed and looking for a job?: Yes Are you interested in more education?: No Please select the resources that you would like help with: None Currently or been in a relationship where the following occur: No concerns reported THRIVE Score: 0 AUDIT C Alcohol Use Questionnaire (AUDIT-C) 1. How often do you have a drink containing alcohol?: Never Total Score: 0 KEIRY-7 AMB Questionnaire KEIRY-7 Date KEIRY - 7 assessed: 06/02/25 Feeling nervous, anxious, or on edge: 1 = Several days Not being able to stop or control worryin = Several days Worrying too much about different things: 1 = Several days Trouble relaxin = Several days Being so restless that it is hard to sit still: 1 = Several days Becoming easily annoyed or irritable: 0 = Not at all Feeling afraid as if something awful might happen: 1 = Several days Total KEIRY-7 score (0-4 normal; 5-9 mild; 10-14 moderate; 15-21 severe): 6 Source: Developed by Drs. Durga Mc, Minerva Sparks, Charlie Joya and colleagues, with an educational gail from [employer]. Review of Systems Const Denies body aches, Denies chills, Denies fever(s), Denies headache(s) and Denies poor appetite Eyes Reports no additional complaints ENT Denies dysphagia, Denies dizziness, Denies headache(s) and Denies odynophagia Card Denies chest pain, Denies syncope, Denies edema, Denies irregular heart rhythm, Denies lightheadedness and Denies dyspnea Resp Denies cough and Denies dyspnea GI Denies abdominal pain, Denies constipation, Denies dysphagia, Denies diarrhea, Denies nausea, Denies odynophagia and Denies vomiting Reports no additional complaints Musc Reports no additional complaints and Denies abnormal gait Skin/Breast Reports system reviewed and no additional complaints, except as documented Neuro Denies abnormal gait, Denies dizziness, Denies syncope and Denies headache(s) Psych Reports no additional complaints, Reports anxiety, Denies homicidal ideation and Denies suicidal ideation Physical exam (Primary Care) Vital Signs: Last Vital Signs Temp 96.8 F 06/02/25 08:44 Pulse 51 06/02/25 08:44 Resp 18 06/02/25 08:44 BP 106/50 L 06/02/25 08:44 Pulse Ox 96 06/02/25 08:44 Oxygen Delivery Method Room Air 06/02/25 08:44 BMI result Body Mass Index 23.4 Tobacco/Smoking Status: Tobacco use Status Tobacco use date assessed 06/02/25 06/02/25 08:55 Patient Tobacco Use Status Current everyday Tobacco 06/02/25 08:55 Tobacco use type Cigarette 06/02/25 08:55 e-Cigarette/Vaping Use Never Used 06/02/25 08:55 PHQ-9: PHQ-9 Score PHQ-9: Total score 5 06/02/25 09:28 Depression Screening Interpretation: Negative Thrive Assessment: Date of Thrive Assessment Date Thrive assessed 06/02/25 06/02/25 08:55 Currently or been in a relationship where the following occur: No concerns reported Const General: cooperative, healthy appearing, comfortable and no acute distress Orientation/consciousness: patient oriented x3 HENDE Head: Yes normocephalic Ears: hearing grossly normal bilaterally General nose exam: Normal external nose present Eyes General: appearance normal, both eyes and all related structures Conjunctivae: conjunctivae normal Neck Neck: Yes full ROM and Yes no lymphadenopathy Resp Effort & Inspection: normal respiratory effort Auscultation: clear to auscultation bilaterally, no crackles, no rales, no rhonchi and no wheezes Cardio Rate: regular rate Rhythm: regular rhythm Skin General skin exam: no rashes or lesions noted Neuro General: patient oriented x3 Gait exam (Neuro): Normal gait present Extrem General: Yes normal to inspection, Yes full ROM and No edema Psych Affect: normal affect Attitude: cooperative Insight: Good insight present (Psych) Judgement: Good judgement present (Psych) Coding Level of Care Code Est Pt Level 3 (32946) Diagnoses Anxiety F41.9 Time Spent (min) 29 Assessment & Plan Assessment & Plan (1) Anxiety: Code(s): F41.9 - Anxiety disorder, unspecified Category: Medical Plan: The patient will continue with the current medication regimen of sertraline 100mg daily, and use lorazepam as needed for breakthrough anxiety. A refill of lorazepam has been provided to ensure availability during her upcoming travel. Medications: Refilled lorazepam 0.5 mg PO BID PRN 60 tabs 0RF anxiety 30 days
--- OUTSIDE RECORDS SUMMARY | 2025-06-02 09:13 | XMS_ITS | Patient Health Record ---
Author Organization [facility] Address [address] [place] [address] Care Team Providers Care Rehabilitation Therapy Aide Name Role Phone Blake JOSHUA, [place] Primary Care Provider Thien Patterson Jr Unavailable [phone] Allergies Allergen (clinical drug ingredient) Drug/Non Drug [...] Problem Status W/U Status Risk Notes Problem [id number] Anemia (285.9) Active confirmed Problem [id number] Abnormal finding s in stool (792.1) Active confirmed Problem [id number] Gastroesophageal reflux disease without esophagitis (K21.9) Active confirmed Plan Of Treatment No Information Insurance Providers Payer Name Payer Address Payer Phone Subscriber Number Group Number Insured Name Patient Relationship to Insured Coverage Start Date Coverage End Date [place] [address] [place] [id number] [id number] JUDE CASTRO Self - patient is the insured [facility] [employer] [address] [place] [address] [id number] JUDE CASTRO Self - patient is the insured Medical (General) History Medical History History ICD Code Denies [place],DM,CVA,Lung disease,renal dise ase Surgical History Surgery Date(Month/Year) tonsillectomy appendectomy hysterectomy
== END 2025-06-02 10:23 | disposition home or self-care (01) ==
LOC: HO.HMCH 08:41
PROVIDERS: PCP Internal Medicine
DX: F41.9 Anxiety disorder, unspecified (principal)

== ENCOUNTER → 2025-06-02 08:40 | Outpatient (BNVA) | payer MEDICARE, SELFPAY ==
[2022-06-18 07:37] VITALS: BMI 24.5
[2022-08-26 10:44] VITALS: BP 128/66; BP 142/72
== END ==
PROVIDERS: PCP Internal Medicine
DX: F41.9 Anxiety disorder, unspecified (principal)
CPT/HCPCS: 99212

== ENCOUNTER → 2025-08-29 08:50 | Outpatient (REF) | payer MEDICARE, SELFPAY ==
[2022-06-18 07:37] VITALS: BMI 24.5
[2022-08-26 10:44] VITALS: BP 128/66; BP 142/72
--- NOTE | 2025-08-29 08:52 | CA_ITS ---
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 The calculated ejection fraction is 64% by biplane method. - There is moderate aortic valve stenosis. Findings Left Ventricle Normal left ventricular cavity size. There is mildly increased left ventricular wall thickness. The left ventricular systolic function is normal. The calculated ejection fraction is 64% by biplane method. There is no evidence of regional wall motion abnormalities. Possible grade 2 diastolic dysfunction. Right Ventricle Normal right ventricular cavity size and systolic function. Atria The left atrium is mildly dilated. The right atrium is normal in size. Aortic Valve There is severe calcification of the aortic valve. There is moderate aortic valve stenosis. The mean gradient is 13 mmHg. The aortic valve area is 1.10 cm2. There is no aortic valve regurgitation. Dimensionless index 0.36. Stroke volume index 49 mL/m2. Mitral Valve There is mild mitral annular calcification. There is trace mitral valve regurgitation. There is no mitral valve stenosis. Pulmonic Valve The pulmonic valve is likely normal. Tricuspid Valve There is trace tricuspid valve regurgitation. There is no evidence of pulmonary hypertension. Great Vessels The asc aorta is normal in size. Venous The inferior vena cava is normal in size and collapses greater than 50% with inspiration. Pericardium/Pleural There is no evidence of pericardial effusion. Prior Study Comparison No significant change compared to prior study dated: 07/18/2024. Measurements 2D Linear Measurements IVSd: 1.07 0.6-0.9/0.6-1.0 cm LVIDd: 3.97 3.9-5.3/4.2-5.9 cm LVIDd Index: 2.45 2.4-3.2/2.2-3.1 cm/m2 LVIDs: 2.64 2.0-3.6 cm LVPWd: 1.08 0.7-1.1 cm Ao Root: 2.60 2.1-3.5 cm LA Diam: 3.00 2.7-3.8/3.0-4.0 cm LAIDs Index: 1.85 1.5-2.3 cm/m2 LV Mass: 173.32 67-162/88-224 g LV Mass Index: 106.99 43-95/49-115 g/m2 LVOT Diam: 2.00 3.0+(-)1.3 cm 2D Systolic Function EF 4C: 66.70 >55% EF 2C: 61.40 >55% EF BiP: 64.40 >55% Mitral Valve MV VTI: 0.45 MV Pk Trell: 1.13 MV Mn Trell: 0.56 MV Pk Grad: 5.00 MV Mn Grad: 2.00 MV Pk E: 0.82 MV PK A: 0.76 MV Decel Time: 263.00 E/A: 1.10 E'Lateral: 7.40 E'Medial: 5.22 E/E' Med: 15.70 E/E' Lat: 11.10 PHT: 77.00 MVA PHT: 2.86 MVA Continuity: 1.76 Decel [place]: 3.12 Aortic Valve AoV Pk Trell: 2.62 AoV Mn Trell: 1.61 AoV VTI: 0.73 AoV Pk Grad: 27.00 Aov Mn Grad: 13.00 MATILDE Cont.VTI: 1.10 LVOT LVOT Pk Trell: 0.94 LVOT Mn Trell: 0.60 LVOT VTI: 0.25 LVOT Pk Grad: 4.00 LVOT Mn Grad: 2.00 LVOT Diam: 2.00 LVOT Area: 3.14 Diastolic Function MV Pk E: 0.82 MV Pk A: 0.76 E/A: 1.10 E'Medial: 5.22 E/E' Med: 15.70 E' Laterial: 7.40 E/E' Lat: 11.10 Right Ventricle TAPSE (mm): 25.00 TVS' Trell: 10.00 Tricuspid Valve TR Pk Trell: 2.17 TR Pk Grad: 19.00 RA Press: 3.00 RVSP: 22.00 Great Vessels Aorta Ao Root-2D: 2.60 2.0-3.7 cm Ao Asc: 2.90 2.1-3.4 cm Pulmonary Veins Pulm Vein S/D 1.00 Pulmonary Valve PV Pk Trell: 0.92 Peak PV Grad: 3.00 Updated in Other Vendor System with Status of Final Lawrence Milan MD electronically signed on 08/31/2025 11:30:33 AM with status of Final
== END ==
LOC: HO.CARD 08:50
PROVIDERS: PCP Internal Medicine; Visit Provider Internal Medicine Cardiovascular Disease
DX: I35.0 Nonrheumatic aortic (valve) stenosis (principal)
CPT/HCPCS: 93306

== ENCOUNTER → 2025-08-29 08:52 | Outpatient (BNV) | payer MEDICARE, SELFPAY ==
[2022-06-18 07:37] VITALS: BMI 24.5
[2022-08-26 10:44] VITALS: BP 128/66; BP 142/72
== END ==
PROVIDERS: PCP Internal Medicine; Visit Provider Internal Medicine
DX: I35.0 Nonrheumatic aortic (valve) stenosis (principal)
CPT/HCPCS: 93306